=== PATIENT | female | born 1940 | race Caucasian/White ===

== ENCOUNTER 2021-08-12 12:45 | Inpatient (IN) | payer MEDICARE ==
--- NOTE | 2021-08-12 13:20 | ED ---
General Adult HPI - General Source: patient, RN notes reviewed, old records reviewed <Jeovany Pan - Last Filed: 08/12/21 15:21> <Beau Fuchs - Last Filed: 08/12/21 16:36> - General Chief complaint: Neuro Symptoms/Deficit Stated complaint: aphasia Time Seen by Provider: 08/12/21 12:45 - History of Present Illness Initial comments: This is an 81-year-old female who presents emergency Department stating that she has had expressive aphasia for at least 2 days. Patient denies any weakness or numbness. Patient denies any headache patient denies any lightheadedness. Patient denies any chest pain palpitations difficulty breathing or shortness of breath. Patient denies being on any blood thinners. Patient states her only complaint is that she's having trouble finding words. Patient states she's had no problem ambulating. (Jeovany Pan) - Related Data Home Medications Medication Instructions Recorded Confirmed Folic Acid 1 mg PO DAILY 01/22/15 01/22/15 Furosemide [Lasix] 20 mg PO DAILY 01/22/15 01/22/15 Levothyroxine Sodium [Synthroid] 50 mg PO DAILY 01/22/15 01/22/15 Loratadine [Claritin] 10 mg PO DAILY 01/22/15 01/22/15 Methotrexate Sodium/Pf 100 unit SQ DIRECTED 01/22/15 01/22/15 [Methotrexate 100 mg/4 ml Vial] Ramipril 10 mg PO DAILY 01/22/15 01/22/15 predniSONE 10 mg PO DAILY 01/22/15 01/22/15 sitaGLIPtin PHOS/metFORMIN HCL 1 tab PO BID 01/22/15 01/22/15 [Janumet 50-1,000 mg Tablet] traMADol HCL [Ultram] 100 mg PO TID PRN 01/22/15 01/22/15 Allergies Allergy/AdvReac Type Severity Reaction Status Date / Time No Known Allergies Allergy Verified 02/03/15 13:01 Review of Systems ROS Other: All systems not noted in ROS Statement are negative. <Jeovany Pan - Last Filed: 08/12/21 15:21> ROS Other: All systems not noted in ROS Statement are negative. <Beau Fuchs - Last Filed: 08/12/21 16:36> ROS Statement: Those systems with pertinent positive or pertinent negative responses have been documented in the HPI. General Exam <Jeovany Pan - Last Filed: 08/12/21 15:21> - General Exam Comments Initial Comments: GENERAL: Patient is well-developed and well-nourished. Patient is nontoxic and well-hydrated and is in no acute distress. ENT: Neck is soft and supple. No significant lymphadenopathy is noted. Oropharynx is clear. Moist mucous membranes. Neck has full range of motion without eliciting any pain. EYES: The sclera were anicteric and conjunctiva were pink and moist. Extraocular move ments were intact and pupils were equal round and reactive to light. Eyelids were unremarkable. PULMONARY: Unlabored respirations. Good breath sounds bilaterally. No audible rales rhonchi or wheezing was noted. CARDIOVASCULAR: There is a regular rate and rhythm without any murmurs gallops or rubs. ABDOMEN: Soft and nontender with normal bowel sounds. SKIN: Skin is clear with no lesions or rashes and otherwise unremarkable. NEUROLOGIC: Patient is alert and oriented x3. Cranial nerves II through XII are grossly intact. Patient has chronic weakness in the left arm secondary to her shoulders and she states that is no worse than normal. Patient's other 3 extremities have normal strength normal sensation. Patient's speech is clear when she can say the words she is thinking. Patient is having some expressive aphasia. MUSCULOSKELETAL: Normal extremities with adequate strength and full range of motion. LYMPHATICS: No significant lymphadenopathy is noted PSYCHIATRIC: Normal psychiatric evaluation. (Jeovany Pan) Course Vital Signs 08/12/21 14:20 Temperature 98.3 F Pulse Rate 81 Respiratory 20 Rate Blood Pressure 140/73 O2 Sat by Pulse 98 Oximetry Medical Decision Making - Lab Data Result diagrams: 08/12/21 13:43 08/12/21 13:43 <Jeovany Pan - Last Filed: 08/12/21 15:21> - Lab Data Result diagrams: 08/12/21 13:43 08/12/21 13:43 - Radiology Data Radiology results: report reviewed (CT brain shows atrophy. CT angios does show stenosis several areas, up to 70% proximal left ICA.), image reviewed (Chest x- ray shows low lung volumes. Cardiomegaly with some increased interstitial markings, possible CHF.) <Beau Fuchs - Last Filed: 08/12/21 16:36> - Medical Decision Making EKG shows sinus rhythm with occasional PAC at 83 bpm KS interval is 173 QRSs 85 QT interval 364 QTC is 44. Patient's EKG shows no ST segment elevation or depression. Dr. Fuchs will be taking over the care of this patient at 3 PM (Jeovany Pan) Patient reevaluated by myself, Dr. Fuchs. Patient does have interest aphasia. Patient and family updated on results and plan. Dr. Hanley has been paged for admission of this patient. (Beau Fuchs) - Lab Data Lab Results 08/12/21 08/12/21 08/12/21 Range/Units 13:43 13:43 13:43 WBC 8.6 (3.8-10.6) k/uL RBC 3.15 L (3.80-5.40) m/uL Hgb 10.9 L (11.4-16.0) gm/dL Hct 33.1 L (34.0-46.0) % MCV 104.9 H (80.0-100.0) fL MCH 34.5 (25.0-35.0) pg MCHC 32.9 (31.0-37.0) g/dL RDW 16.2 H (11.5-15.5) % Plt Count 379 (150-450) k/uL MPV 7.2 Neutrophils % 79 % Lymphocytes % 14 % Monocytes % 4 % Eosinophils % 2 % Basophils % 1 % Neutrophils # 6.7 (1.3-7.7) k/uL Lymphocytes # 1.2 (1.0-4.8) k/uL Monocytes # 0.3 (0-1.0) k/uL Eosinophils # 0.1 (0-0.7) k/uL Basophils # 0.1 (0-0.2) k/uL Hypochromasia Slight Anisocytosis Slight Macrocytosis Moderate PT 10.8 (9.0-12.0) sec INR 1.0 (<1.2) APTT 22.7 (22.0-30.0) sec Sodium 137 (137-145) mmol/L Potassium 3.4 L (3.5-5.1) mmol/L Chloride 97 L (98-107) mmol/L Carbon Dioxide 34 H (22-30) mmol/L Anion Gap 6 mmol/L BUN 12 (7-17) mg/dL Creatinine 0.51 L (0.52-1.04) mg/dL Est GFR (CKD-EPI)AfAm >90 (>60 ml/min/1.73 sqM) Est GFR (CKD-EPI)NonAf 90 (>60 ml/min/1.73 sqM) Glucose 117 H (74-99) mg/dL Calcium 9.0 (8.4-10.2) mg/dL Total Bilirubin 0.6 (0.2-1.3) mg/dL AST 40 H (14-36) U/L ALT 13 (4-34) U/L Alkaline Phosphatase 88 (38-126) U/L Troponin I (0.000-0.034) ng/mL Total Protein 7.2 (6.3-8.2) g/dL Albumin 4.1 (3.5-5.0) g/dL 08/12/21 Range/Units 13:43 WBC (3.8-10.6) k/uL RBC (3.80-5.40) m/uL Hgb (11.4-16.0) gm/dL Hct (34.0-46.0) % MCV (80.0-100.0) fL MCH (25.0-35.0) pg MCHC (31.0-37.0) g/dL RDW (11.5-15.5) % Plt Count (150-450) k/uL MPV Neutrophils % % Lymphocytes % % Monocytes % % Eosinophils % % Basophils % % Neutrophils # (1.3-7.7) k/uL Lymphocytes # (1.0-4.8) k/uL Monocytes # (0-1.0) k/uL Eosinophils # (0-0.7) k/uL Basophils # (0-0.2) k/uL Hypochromasia Anisocytosis Macrocytosis PT (9.0-12.0) sec INR (<1.2) APTT (22.0-30.0) sec Sodium (137-145) mmol/L Potassium (3.5-5.1) mmol/L Chloride (98-107) mmol/L Carbon Dioxide (22-30) mmol/L Anion Gap mmol/L BUN (7-17) mg/dL Creatinine (0.52-1.04) mg/dL Est GFR (CKD-EPI)AfAm (>60 ml/min/1.73 sqM) Est GFR (CKD-EPI)NonAf (>60 ml/min/1.73 sqM) Glucose (74-99) mg/dL Calcium (8.4-10.2) mg/dL Total Bilirubin (0.2-1.3) mg/dL AST (14-36) U/L ALT (4-34) U/L Alkaline Phosphatase (38-126) U/L Troponin I <0.012 (0.000-0.034) ng/mL Total Protein (6.3-8.2) g/dL Albumin (3.5-5.0) g/dL Disposition <Jeovany Pan - Last Filed: 08/12/21 15:21> Is patient prescribed a controlled substance at d/c from ED?: No Time of Disposition: 16:36 <Beau Fuchs - Last Filed: 08/12/21 16:36> Clinical Impression: Cerebrovascular accident (CVA) Disposition: ADMITTED IP TO THIS HOSP Referrals: Gina Hanley MD [Primary Care Provider] - 1-2 days
[2021-08-12 13:57] LABS: Anisocytosis Slight; Basophils # (A) 0.1 k/uL (0-0.2); Basophils % (A) 1 %; Eosinophils # (A) 0.1 k/uL (0-0.7); Eosinophils % (A) 2 %; HCT 33.1 % (34.0-46.0); HGB 10.9 gm/dL (11.4-16.0); Hypochromasia Slight; Lymphocytes # (A) 1.2 k/uL (1.0-4.8); Lymphocytes % (A) 14 %; MCH 34.5 pg (25.0-35.0); MCHC 32.9 g/dL (31.0-37.0); MCV 104.9 fL (80.0-100.0); Macrocytosis Moderate; Mean Platelet Volume 7.2; Monocytes # (A) 0.3 k/uL (0-1.0); Monocytes % (A) 4 %; Neutrophils # (A) 6.7 k/uL (1.3-7.7); Neutrophils % (A) 79 %; Platelet Count 379 k/uL (150-450); RBC 3.15 m/uL (3.80-5.40); RDW 16.2 % (11.5-15.5); WBC 8.6 k/uL (3.8-10.6)
[2021-08-12 14:08] LABS: Partial Thromboplastin Time 22.7 sec (22.0-30.0); Prothrombin Time 10.8 sec (9.0-12.0)
[2021-08-12 14:10] LABS: ALT 13 U/L (4-34); AST 40 U/L (14-36); African American GFR (CKD) >90 (>60 ml/min/1.73 sqM); Albumin 4.1 g/dL (3.5-5.0); Alkaline Phosphatase 88 U/L (38-126); Anion Gap 6 mmol/L; Blood Urea Nitrogen 12 mg/dL (7-17); Carbon Dioxide 34 mmol/L (22-30); Chloride 97 mmol/L (98-107); Glucose 117 mg/dL (74-99); Non-African American GFR(CKD) 90 (>60 ml/min/1.73 sqM); Potassium 3.4 mmol/L (3.5-5.1); Sodium 137 mmol/L (137-145); Total Bilirubin 0.6 mg/dL (0.2-1.3); Total Protein 7.2 g/dL (6.3-8.2)
--- NOTE | 2021-08-12 15:15 | XR ---
EXAMINATION TYPE: XR chest 2V DATE OF EXAM: 08/12/2021 COMPARISON: 10/07/2014 HISTORY: 80-year-old female confusion, altered mental status TECHNIQUE: AP and lateral views FINDINGS: Very low lung volumes limiting the assessment. Heart appears mildly enlarged. Diffuse interstitial an d vascular prominence. No sizable pleural effusion on the lateral view. There appears to be a mild lou perior endplate deformity of a midthoracic vertebral body, new from 2014 but still age indeterminate. Patchy left basilar opacity. IMPRESSION: 1. Very limited exam due to marked hypoventilatory changes. There is cardiomegaly and diffuse interst itial/vascular density, possible CHF with pulmonary vascular congestion. Patchy left basilar atelecta sis versus developing infiltrate. 2. Mild superior endplate deformity of a midthoracic vertebral body is new from 2014 but still age in determinate. Clinically correlate.
--- NOTE | 2021-08-12 15:35 | CT ---
EXAMINATION TYPE: CT brain wo con for TPA DATE OF EXAM: 08/12/2021 COMPARISON: None HISTORY: 81-year-old female neurologic deficit, acute, stroke suspected, weakness and difficulty talk ing. TECHNIQUE: Examination was done in axial plane without intravenous contrast. Coronal and sagittal r econstructions performed. CT DLP: 1102.6 mGycm Automated exposure control for dose reduction was used. FINDINGS: There is no evidence of acute intracranial hemorrhage, acute ischemic changes, mass, mass-effect, or extra-axial fluid collection. There is no effacement of cerebral sulci or basal subarachnoid cister ns. There is no hydrocephalus. There is no midline shift. Hameed-white matter distinction is preserv ed. Moderate confluent white matter hypodensities in both cerebral hemispheres. Mild central cerebral vol ume loss with secondary mild prominence to the ventricular system. Leftward nasal septal deviation. Mild mucosal thickening floor of the left maxillary sinus. Mastoid a ir cells are well pneumatized. IMPRESSION: Mild atrophy. No acute intracranial abnormality seen. Moderate confluent burden of small vessel ische elysia disease.
--- NOTE | 2021-08-12 15:55 | CT ---
EXAMINATION TYPE: CT angio head neck DATE OF EXAM: 08/12/2021 COMPARISON: CT same day HISTORY: 81-year-old female with weakness, difficulty in talking TECHNIQUE: Contiguous axial scanning of the head and neck performed with IV Contrast, patient injecte d with 65 mL of Isovue 370. Coronal/sagittal MIP reconstructions performed. 3-D reconstructions gener ated on a dedicated workstation. CT DLP: 540.4 mGycm Automated exposure control for dose reduction was used. FINDINGS: NECK: At least LAD and circumflex coronary artery calcifications are present. In addition, there is large c aliber to the main right and left pulmonary arteries measuring up to 3.1 cm suggesting underlying pul monary arterial hypertension. Interstitial changes throughout the lungs. Correlate to exclude pulmona ry vascular congestion related to CHF. Mild atherosclerotic arch calcifications. Scattered mild atherosclerotic calcifications throughout th e arch vessels. Bilateral codominant vertebral arteries which are otherwise patent throughout their c ourse. Moderate atherosclerotic calcification right carotid bifurcation which occurs at any retropharyngeal course. Changes result in mild, approximately 30% proximal ICA stenosis. Retropharyngeal course of th e proximal ICA and tortuous course of the mid to distal right ICA. Left common carotid artery is patent. More moderate to severe at the scarring changes at the left carotid bifurcation with a severe, 70% st enosis at the upper left carotid bulb. Retropharyngeal course proximal left ICA. Remainder of the lef t ICA is patent. HEAD: There are mild to moderate atherosclerotic irregularity throughout the V4 segment left vertebral teetee ry. Otherwise, vertebral and basilar arteries are patent. Persistent origin right posterior cerebral artery. Remainder of the posterior circulation is pa tent. Prominent atherosclerotic calcifications throughout the bilateral carotid siphons with segmental mild stenoses throughout, more more moderate stenosis left ICA, axial image 540 of series 405. Remainder of the anterior circulation is patent. No aneurysmal change is seen. IMPRESSION: NECK: 1. Mild, approximately 30% proximal right ICA stenosis. 2. Severe, approximately 70% proximal left ICA stenosis at the upper left carotid bulb. 3. CAD and pulmonary arterial hypertension. Given interstitial changes throughout the lungs, correlat e to exclude pulmonary vascular congestion/CHF. HEAD: 4. Moderate atherosclerotic calcification throughout the bilateral carotid siphons contributing to va riable mild intracranial ICA narrowing throughout. More focal mild to moderate stenosis supraclinoid left ICA. 5. No large vessel intracranial arterial occlusion or significant stenosis. No aneurysmal changes see n. 6. Persistent origin right [employer]OCK [employer]ER.
[2021-08-12] MEDS ORDERED: ASPIRIN 325 MG TAB PO STA (16:36)
[2021-08-12] MEDS: SODIUM CHLORIDE 0.9% 1,000 ML IV SCH (16:52)
[2021-08-12 21:06] LABS: Glucose,Whole Blood 142 mg/dL (70-110)
[2021-08-13 06:20] LABS: Glucose,Whole Blood 93 mg/dL (70-110)
[2021-08-13] MEDS: SODIUM CHLORIDE 0.9% 1,000 ML IV SCH ×3 (06:32→23:49)
[2021-08-13] MEDS: ASPIRIN 325 MG TAB PO SCH (08:58)
[2021-08-13] MEDS ORDERED: ATORVASTATIN 80 MG TAB PO STA (09:00)
[2021-08-13 09:28] LABS: Chol/HDL Ratio 2.41 Ratio; LDL Cholesterol,Calculated 88.4 mg/dL (0.0-131.0); VLDL Calculation 15.68 mg/dL (5.00-40.00)
[2021-08-13] MEDS ORDERED: TICAGRELOR 90 MG TAB PO STA (09:36)
--- NOTE | 2021-08-13 09:47 | P.CNNES ---
History of Present Illness Consult date: 08/13/21 Requesting physician: Beau Fuchs Reason for Consult: CVA History of Present Illness: This is an 81-year-old woman with medical history of hypertension, very hard of hearing who presented to the emergency department on 08/12/2021 for expressive aphasia for at least 2 days. Some of the history is accompanied by the son (who is at bedside especially since patient is hard of hearing). Patient has been having word finding difficulty and that her only complaint and had language issues possibly since 08/10/2021. She resides in an independent living facility and son felt his daughter noticed late at night patient did not sound right. The next day her facility checked her blood pressure and it seemed to be uncontrolled. Then yesterday he language was worsening. She is also having right upper extremity weakness. Patient has similar episode like this in June 2021 and was evaluated by Raffy Zavala. The son stated she had work-up but did not have MRI Brain. Her symptoms has resolved but was told possible had ?atrial flutter at [facility]. Patient is on aspirin 81 mg at home as well as Plavix 75 mg daily. Is on Crestor 5 mg daily. Patient denies of neck pain, visual disturbance, numbness or tingling. Some other workup during this hospital visit consisted of: Initial blood pressure is 140/73 CT of the head is reported as mild atrophy. No acute intracranial abnormality seen. Moderate confluent burden of small vessel ischemic disease. I personally reviewed the CT of the head and I agree with the report. CT angiography of the neck is reported as mild proximal with her percent proximal right ICA stenosis at. Severe approximately 70% proximal left ICA stenosis at the upper left carotid bulb. Coronary artery disease and pulmonary arterial hypertension. Given interstitial changes throughout the long, correlate to exclude pulmonary vascular congestion/congestive heart failure CT angiography of the head is reported as moderate atherosclerotic as effusion throughout the bilateral carotid siphons contributing to variable mild intracranial ICA narrowing throughout. More focal mild to moderate stenosis of the supraclinoid left ICA. No large vessel intracranial artery occlusion or significant stenosis. No aneurysm change. 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 EKG is reported as sinus rhythm with occasional supraventricular premature complexes. Borderline axis deviation QRS axis. In the ED it was felt the patient has mild expressive aphasia. No IV TPA since the patient is outside the window and the risk outweighed the benefit. Review of Systems Review of system: The 12 point system was reviewed and apparent positive and negative per HPI. Past Medical History Past Medical History: Unable to Obtain History of Any Multi-Drug Resistant Organisms: None Reported Past Surgical History: Unable to Obtain Past Anesthesia/Blood Transfusion Reactions: No Reported Reaction Past Psychological History: No Psychological Hx Reported, Unable to Obtain Smoking Status: Former smoker Past Alcohol Use History: None Reported Past Drug Use History: None Reported Medications and Allergies Home Medications Medication Instructions Recorded Confirmed Type Folic Acid 1 mg PO DAILY 01/22/15 08/12/21 History Levothyroxine Sodium [Synthroid] 50 mg PO DAILY 01/22/15 08/12/21 History Methotrexate Sodium/Pf 25 unit SQ TU 01/22/15 08/12/21 History [Methotrexate 100 mg/4 ml Vial] Aspirin EC [Ecotrin Low Dose] 81 mg PO DAILY 08/12/21 08/12/21 History Clopidogrel [Plavix] 75 mg PO DAILY 08/12/21 08/12/21 History Furosemide [Lasix] 40 mg PO DAILY 08/12/21 08/12/21 History Losartan [Cozaar] 50 mg PO DAILY 08/12/21 08/12/21 History Nystatin 100,000Unit/gm Cream 1 applic TOPICAL BID 08/12/21 08/12/21 History [Mycostatin Cream] Rosuvastatin Calcium [Crestor] 5 mg PO DAILY 08/12/21 08/12/21 History cycloSPORINE 0.05% OPHTH SOLN 1 drop BOTH EYES BID 08/12/21 08/12/21 History [Restasis] Allergies Allergy/AdvReac Type Severity Reaction Status Date / Time No Known Allergies Allergy Verified 02/03/15 13:01 Physical Examination - Vital Signs Vital Signs: Vital Signs Temp Pulse Pulse Resp BP BP Pulse Ox 08/13/21 04:00 63 18 122/61 97 08/13/21 02:00 74 18 08/13/21 00:00 98.4 F 74 18 126/66 98 08/12/21 20:00 98.3 F 82 18 125/69 99 08/12/21 19:00 84 22 136/72 08/12/21 18:00 84 18 138/69 08/12/21 17:00 87 18 140/83 08/12/21 16:37 98.2 F 85 20 136/80 96 07/01/22 16:00 87 20 156/81 07/01/22 14:20 98.3 F 81 20 140/73 98 Intake and Output 08/12/21 08/13/21 08/13/21 22:59 06:59 14:59 Other: Voiding Method Diaper External Catheter # Voids 1 1 Weight 95.218 kg GENERAL: The patient is lying in bed and is not in acute distress. CHEST: The heart rate is regular rate rhythm. No murmurs to auscultation. LUNG: Clear to auscultation bilaterally no wheezing noted throughout. Not labored breathing. ABDOMEN/GI: Bowel sounds present in all 4 quadrants. No tenderness to palpation throughout. NEUROLOGICAL: Higher mental function: The patient is awake, alert, oriented to self, place and time. Patient is following commands. Has Mild to moderate expressive aphasia (some word finding difficulty and at time difficulty repeating sentences). No neglect. Cranial nerves: The pupils are round, equal and reactive to light and accommodation. Visual nuñez are full to confrontation throughout. Extraocular movement is intact no nystagmus is noted. Facial sensation is normal to touch throughout. The facial strength is normal throughout. Hearing is severely decr eased bilaterally to hand rub (currently does not have her hearing aids). Tongue is midline and moved [id number] without any difficulty. No dysarthria is noted. Shoulder shrug is normal bilaterally. Motor: The strength is right upper extremity is 4+. Otherwise 5 over 5 throughout. Normal tone and bulk. Cerebellum: Normal finger to nose bilaterally. Sensation: Sensation is normal to touch throughout. Reflexes (right/left): 3+ over the left upper, 2+ over the right upper. 0 (bilateral knee replacement). Plantars could not assess because of her cooperation. Results - Laboratory Findings CBC and BMP: 08/12/21 13:43 08/12/21 13:43 Abnormal Lab Findings: Abnormal Labs 08/12/21 08/12/21 08/12/21 13:43 13:43 21:00 RBC 3.15 L Hgb 10.9 L Hct 33.1 L MCV 104.9 H RDW 16.2 H Potassium 3.4 L Chloride 97 L Carbon Dioxide 34 H Creatinine 0.51 L Glucose 117 H POC Glucose (mg/dL) 142 H AST 40 H Assessment and Plan Assessment: Expressive aphasia and right upper extremity weakness seems due to Acute ischemic stroke (symptoms at least two days prior to hospital visit). Symptomatic Left ICA stenosis at least 70% stenosis per CTA Has similar episode in June 2021 and appeared TIA Reported questionable atrial flutter in June 2021 (notified at outside facility--[facility]) Very hard of hearing Plan: I ordered MRI of the brain without urgently. Patient home medication of aspirin was increased from 81 to 325 and was given 325 the milligram once in the ED. Instead of his home Plavix since he failed all start the patient on Brilinta 90 mg 1 tablet 1 tablet twice a day with a loading dose of 180 mg once. I loaded the patient with Lipitor 80 mg once then start him on 80 mg for secondary stroke prophylaxis and that would help with stablize plaque over the left ICA. I consulted the vascular surgery team for the left ICA stenosis since it symptomatic. I also ordered carotid duplex 2-D echo, lipid panel, is ordered and is pending I also ordered hemoglobin A1c and TSH. Consulted cardiology team for ?reported atrial flutter in June 2021 (over at [facility]). Every 4 hours neuro checks Continue cardiac monitoring PT, OT and NURSE SPECIALIST are consulted We'll defer the rest of the medical management to the primary team For DVT prophylaxis I started the patient on subcu heparin 5000 units every 12 hours We'll defer the rest of the medical management to primary team. The plan is discussed with patient and her son (who is at bedside). Thank you for the consultation. Jose Lobato M.D. Neuro-hospitalist Time with Patient: Greater than 30
[2021-08-13 11:50] LABS: Glucose,Whole Blood 141 mg/dL (70-110)
--- NOTE | 2021-08-13 12:18 | P.CRDCN ---
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 She has a past medical history of hypertension, hyperlipidemia, questionable history of diabetes and history of rheumatoid arthritis. Presented to the emergency department with a 2 to three-day history of expressive aphasia and some questionable right-sided weakness which the patient denies this is related to her bed shoulder but the son has noted weakness in the left arm and patient is unable to raise the left arm. She was apparently admitted to [facility] about 6 weeks ago with the same symptoms and at that time she underwent echocardiogram with Doppler study and the son was told by someone at that time that they've possibly saw a flutter. Unfortunately the results of the testing which are [facility] are not available to us at this time. This onset over a three-week period the patient's symptoms resolved and she was back to normal. Upon presentation chest x-ray showed a very limited exam with cardiomegaly and diffuse interstitial vascular density possible CHF with pulmonary vascular congestion, patchy left basilar atelectasis versus developing infiltrate, mild superior endplate deformity of t he mid thoracic vertebral body which is new from 2015, Age indeterminate. Computed tomography scan of the brain showed mild atrophy, no acute intracranial abnormality seen, moderate fluent burden of small vessel ischemic disease. CT angiography had a neck showed mild proximal right ICA stenosis, severe approximately 70% proximal left ICA stenosis at the upper left carotid bulb, CAD and pulmonary arterial hypertension, moderate atherosclerotic calcification throughout the bilateral carotid siphons contributing to variable mild intracranial ICA narrowing throughout, more focal mild to moderate stenosis of supraclinoid left ICA, no large vessel intracranial arterial occlusion or significant stenosis. EKG showed sinus mechanism with PACs. No evidence of arrhythmia on telemetry. Neurology has been consulted and patient is scheduled for MRI today. Laboratory values showed potassium 3.4, hemoglobin 10.9, BUN 12, creatinine 0.51, troponin has been negative 1. Home medications include r osuvastatin 5 mg by mouth daily, methotrexate, losartan 50 mg by mouth daily, level thyroxine, Lasix 40 mg daily which the patient admits to taking 80 mg daily, folic acid, low-dose aspirin and clopidogrel. She's been initiated on Brilinta and atorvastatin 80mg daily. Overall she's feeling a bit better. She has regained some strength in her arm and her speech is improving. Past Medical History Past Medical History: Unable to Obtain History of Any Multi-Drug Resistant Organisms: None Reported Past Surgical History: Unable to Obtain Past Anesthesia/Blood Transfusion Reactions: No Reported Reaction Past Psychological History: No Psychological Hx Reported, Unable to Obtain Smoking Status: Former smoker Past Alcohol Use History: None Reported Past Drug Use History: None Reported Medications and Allergies Home Medications Medication Instructions Recorded Confirmed Type Folic Acid 1 mg PO DAILY 01/22/15 08/12/21 History Levothyroxine Sodium [Synthroid] 50 mg PO DAILY 01/22/15 08/12/21 History Methotrexate Sodium/Pf 25 unit SQ TU 01/22/15 08/12/21 History [Methotrexate 100 mg/4 ml Vial] Aspirin EC [Ecotrin Low Dose] 81 mg PO DAILY 08/12/21 08/12/21 History Clopidogrel [Plavix] 75 mg PO DAILY 08/12/21 08/12/21 History Furosemide [Lasix] 40 mg PO DAILY 08/12/21 08/12/21 History Losartan [Cozaar] 50 mg PO DAILY 08/12/21 08/12/21 History Nystatin 100,000Unit/gm Cream 1 applic TOPICAL BID 08/12/21 08/12/21 History [Mycostatin Cream] Rosuvastatin Calcium [Crestor] 5 mg PO DAILY 08/12/21 08/12/21 History cycloSPORINE 0.05% OPHTH SOLN 1 drop BOTH EYES BID 08/12/21 08/12/21 History [Restasis] Allergies Allergy/AdvReac Type Severity Reaction Status Date / Time No Known Allergies Allergy Verified 02/03/15 13:01 Physical Exam Vitals: Vital Signs Temp Pulse Pulse Resp BP BP Pulse Ox 08/13/21 08:56 98.1 F 81 18 145/65 94 L 08/13/21 04:00 63 18 122/61 97 08/13/21 02:00 74 18 08/13/21 00:00 98.4 F 74 18 126/66 98 08/12/21 20:00 98.3 F 82 18 125/69 99 08/12/21 19:00 84 22 136/72 08/12/21 18:00 84 18 138/69 08/12/21 17:00 87 18 140/83 08/12/21 16:37 98.2 F 85 20 136/80 96 08/12/21 16:00 87 20 156/81 08/12/21 14:20 98.3 F 81 20 140/73 98 Intake and Output 08/12/21 08/13/21 08/13/21 22:59 06:59 14:59 Output Total 550 Balance -550 Output: Urine 550 Other: Voiding Method Diaper External Catheter # Voids 1 1 Weight 95.218 kg PHYSICAL EXAMINATION: This is a 81-year-old female in no apparent distress at the time of my examination. VITAL SIGNS: Blood pressure 145/65, heart rate 81, respirations 18, temp 98.1F. Patient is 94 % on room air. HEENT: Head is atraumatic, normocephalic. Pupils are equal, round. Sclerae anicteric. Conjunctivae are clear. Mucous membranes of the mouth are moist. Neck is supple. There is no elevated jugular venous pressure. Left carotid bruit is heard. CHEST EXAMINATION: Clear to auscultation bilaterally. No wheezes rales or rhonchi. Respirations even and nonlabored. HEART EXAMINATION: Heart regular, positive S1 and S2. No S3. No S4. Systolic ejection murmur at the base. ABDOMEN: Soft, nontender. Bowel sounds are heard. No organomegaly noted. EXTREMITIES: 1+ peripheral pulses with evidence of mild peripheral edema and no calf tenderness noted. NEUROLOGIC EXAMINATION: Patient is awake, alert and oriented x3. Mild expressive aphasia, right sided weakness. Results 08/12/21 13:43 08/12/21 13:43 Cardiac Enzymes 08/12/21 08/12/21 Range/Units 13:43 13:43 AST 40 H (14-36) U/L Troponin I <0.012 (0.000-0.034) ng/mL Coagulation 08/12/21 Range/Units 13:43 PT 10.8 (9.0-12.0) sec APTT 22.7 (22.0-30.0) sec Lipids 08/12/21 Range/Units 13:43 Triglycerides 78.40 (0.00-149.00) mg/dL Cholesterol 178.00 (0.00-200.00) mg/dL HDL Cholesterol 73.90 H (40.00-60.00) mg/dL Cholesterol/HDL Ratio 2.41 Ratio CBC 08/12/21 Range/Units 13:43 WBC 8.6 (3.8-10.6) k/uL RBC 3.15 L (3.80-5.40) m/uL Hgb 10.9 L (11.4-16.0) gm/dL Hct 33.1 L (34.0-46.0) % Plt Count 379 (150-450) k/uL Comprehensive Metabolic Panel 08/12/21 Range/Units 13:43 Sodium 137 (137-145) mmol/L Potassium 3.4 L (3.5-5.1) mmol/L Chloride 97 L (98-107) mmol/L Carbon Dioxide 34 H (22-30) mmol/L BUN 12 (7-17) mg/dL Creatinine 0.51 L (0.52-1.04) mg/dL Glucose 117 H (74-99) mg/dL Calcium 9.0 (8.4-10.2) mg/dL AST 40 H (14-36) U/L ALT 13 (4-34) U/L Alkaline Phosphatase 88 (38-126) U/L Total Protein 7.2 (6.3-8.2) g/dL Albumin 4.1 (3.5-5.0) g/dL Current Medications Generic Name Dose Route Start Last Admin Trade Name Freq PRN Reason Stop Dose Admin Aspirin 325 mg 08/13/21 09:00 08/13/21 08:58 Aspirin 325 Mg Tab PO 325 mg DAILY HARJIT Administration Atorvastatin Calcium 80 mg 08/14/21 21:00 Atorvastatin 80 Mg Tab PO HS HARJIT Heparin Sodium (Porcine) 5,000 unit 08/13/21 21:00 Heparin Sodium,Porcine/Pf 5,000 Unit/0.5 Ml Syringe SQ Q12HR HARJIT Sodium Chloride 1,000 mls @ 100 mls/hr 08/12/21 16:45 08/13/21 06:32 Saline 0.9% IV Not Given .Q10H HARJIT Ticagrelor 90 mg 08/13/21 21:00 Ticagrelor 90 Mg Tab PO BID HARJIT Intake and Output 08/12/21 08/13/21 08/13/21 22:59 06:59 14:59 Output Total 550 Balance -550 Output: Urine 550 Other: Voiding Method Diaper External Catheter # Voids 1 1 Weight 95.218 kg 08/12/21 13:43 08/12/21 13:43 Assessment and Plan Assessment: #1 probable CVA #2 left ICA stenosis of at least 70% her CTA #3 history of a TIA in June 2021 #4 questionable atrial flutter while at [facility] in June, records currently not available #5 hypertension #6 hyperlipidemia #7 questionable diabetes Plan: From cardiology 's perspective we'll obtain records from [facility]. Continue to monitor for arrhythmia. Patient will likely benefit from either a loop recorder or event monitor as an outpatient. We will continue to follow the patient and provide further recommendations accordingly. ACQUISITION PROFESSIONAL note has been reviewed, I agree with a documented findings and plan of care. Patient was seen and examined.
--- NOTE | 2021-08-13 12:45 | US ---
EXAMINATION TYPE: US carotid duplex BILAT DATE OF EXAM: 08/13/2021 COMPARISON: CTA CLINICAL HISTORY: left ica stenosis. Stenosis, abnormal speech EXAM MEASUREMENTS: RIGHT: Peak Systolic Velocity (PSV) cm/sec ----- Right CCA: 121 ----- Right ICA: 180 ----- Right ECA: 156 ICA/CCA ratio: 1.5 RIGHT: End Diastole cm/sec ----- Right CCA: 12.3 ----- Right ICA: 25.2 ----- Right ECA: 0.0 LEFT: Peak Systolic Velocity (PSV) cm/sec ----- Left CCA: 102 ----- Left ICA: 198 ----- Left ECA: 148 ICA/CCA ratio: 1.9 LEFT: End Diastole cm/sec ----- Left CCA: 14.5 ----- Left ICA: 27.6 ----- Left ECA: 0.0 VERTEBRALS (direction of flow): Right Vertebral: Antegrade Left Vertebral: Antegrade Very difficult exam, pt scanned in chair, heavy breathing, deep dive of bilateral bifurcations Heterogeneous plaque bilaterally with elevated velocities bilaterally IMPRESSION: 50-69% stenosis of the bilateral carotid bifurcations by peak systolic velocity. Criteria for Assigning % of Stenosis / Diameter reduction (Estimation based on the indirect measurements of the internal carotid artery velocities (ICA PSV). 1. Normal (no stenosis)=ICA PSV < 125 cm/s: ratio < 2.0: ICA EDV<40 cm/s. 2. Less than 50% stenosis=ICA PSV < 125 cm/s: ratio < 2.0: ICA EDV<40 cm/s. 3. 50 to 69% stenosis=ICA PSV of 125 to 230 cm/s: ration 2.0 ? 4.0: ICA EDV 40-100 cm/s. 4. Greater than 70% stenosis to near occlusion= ICA PSV > 230 cm/s: ratio > 4.0: ICA EDV > 100 cm/s. 5. Near occlusion= ICA PSV velocities may be low or undetectable: variable ratio and ICA EDV. 6. Total occlusion=unable to detect flow.
--- NOTE | 2021-08-13 13:06 | P.HPIM ---
History of Present Illness H&P Date: 08/13/21 Amisha Benitez, is an 81-year-old female who presented to [facility] emergency room with a chief complaint of difficulty with her speech for the last 2 days, history was taken in the emergency room from her son who noticed that in the last 2 days patient was having difficulty finding words and expressing herself, he stated that at the facility where she lives she was noticed to have elevated blood pressure, patient was also complaining of right upper extremity weakness, she was brought to emergency room for further evaluation and treatment. She was evaluated in the emergency room vital examination on presentation revealed a temperature of 98.3 heart rate 81 respiration 20 blood pressure 140/73 pulse ox 98% on room air Laboratory data revealed a white blood count of 8.6 hemoglobin 10.9 platelet count 379 sodium 137 potassium 3.4 chloride 97 CO2 34 BUN 12 creatinine 0.51 Testing in the emergency room revealed EKG done in the emergency room revealed sinus rhythm with occasional supraventricular premature complexes and borderline left axis deviation, computed tomography scan of the brain without contrast done in the emergency room revealed mild atrophy no acute intracranial abnormality seen and moderate confluent burden of small vessel ischemic disease, chest x-ray done in the emergency room revealed possible congestive heart failure with pulmonary vascular congestion and possible thoracic vertebral end plate deformity. Patient was admitted to medical floor for further evaluation and treatment history of hypertension, history of hyperlipidemia , history of hearing difficulty, history of diabetes mellitus, history of chronic pain maintained on tramadol, history of hypothyroidism, and history of rheumatoid arthritis Past Medical History Past Medical History: Unable to Obtain History of Any Multi-Drug Resistant Organisms: None Reported Past Surgical History: Unable to Obtain Past Anesthesia/Blood Transfusion Reactions: No Reported Reaction Past Psychological History: No Psychological Hx Reported, Unable to Obtain Smoking Status: Former smoker Past Alcohol Use History: None Reported Past Drug Use History: None Reported Medications and Allergies Home Medications Medication Instructions Recorded Confirmed Type Folic Acid 1 mg PO DAILY 01/22/15 08/12/21 History Levothyroxine Sodium [Synthroid] 50 mg PO DAILY 01/22/15 08/12/21 History Methotrexate Sodium/Pf 25 unit SQ TU 01/22/15 08/12/21 History [Methotrexate 100 mg/4 ml Vial] Aspirin EC [Ecotrin Low Dose] 81 mg PO DAILY 08/12/21 08/12/21 History Clopidogrel [Plavix] 75 mg PO DAILY 08/12/21 08/12/21 History Furosemide [Lasix] 40 mg PO DAILY 08/12/21 08/12/21 History Losartan [Cozaar] 50 mg PO DAILY 08/12/21 08/12/21 History Nystatin 100,000Unit/gm Cream 1 applic TOPICAL BID 08/12/21 08/12/21 History [Mycostatin Cream] Rosuvastatin Calcium [Crestor] 5 mg PO DAILY 08/12/21 08/12/21 History cycloSPORINE 0.05% OPHTH SOLN 1 drop BOTH EYES BID 08/12/21 08/12/21 History [Restasis] Allergies Allergy/AdvReac Type Severity Reaction Status Date / Time No Known Allergies Allergy Verified 02/03/15 13:01 Physical Exam Vitals: Vital Signs Temp Pulse Pulse Resp BP BP Pulse Ox 08/13/21 08:56 98.1 F 81 18 145/65 94 L 08/13/21 04:00 63 18 122/61 97 08/13/21 02:00 74 18 08/13/21 00:00 98.4 F 74 18 126/66 98 08/12/21 20:00 98.3 F 82 18 125/69 99 08/12/21 19:00 84 22 136/72 08/12/21 18:00 84 18 138/69 08/12/21 17:00 87 18 140/83 08/12/21 16:37 98.2 F 85 20 136/80 96 08/12/21 16:00 87 20 156/81 08/12/21 14:20 98.3 F 81 20 140/73 98 Intake and Output 08/12/21 08/13/21 08/13/21 22:59 06:59 14:59 Output Total 550 Balance -550 Output: Urine 550 Other: Voiding Method Diaper Diaper External Catheter External Catheter # Voids 1 1 Weight 95.218 kg In general patient is alert and oriented x 3 in no distress HEENT head normocephalic and atraumatic Neck is supple no JVD no goiter no lymphadenopathy no carotid bruit Chest examination is clear to auscultation no crackles no wheezing Cardiac exam reveals regular heart sounds S1 and S2 no gallops no murmurs Abdomen is soft nontender no organomegaly with normal bowel sounds Extremity exam reveals no edema no cyanosis or clubbing Neurological examination reveals mild difficulty with her speech, improved since yesterday per her son at bedside, and minimal right upper extremity weakness as compared to the left otherwise no focal gross deficits Results CBC & Chem 7: 08/12/21 13:43 08/12/21 13:43 Labs: Abnormal Lab Results - Last 24 Hours (Table) 08/12/21 08/12/21 08/12/21 Range/Units 13:43 13:43 13:43 RBC 3.15 L (3.80-5.40) m/uL Hgb 10.9 L (11.4-16.0) gm/dL Hct 33.1 L (34.0-46.0) % MCV 104.9 H (80.0-100.0) fL RDW 16.2 H (11.5-15.5) % Potassium 3.4 L (3.5-5.1) mmol/L Chloride 97 L (98-107) mmol/L Carbon Dioxide 34 H (22-30) mmol/L Creatinine 0.51 L (0.52-1.04) mg/dL Glucose 117 H (74-99) mg/dL POC Glucose (mg/dL) (70-110) mg/dL AST 40 H (14-36) U/L HDL Cholesterol 73.90 H (40.00-60.00) mg/dL 08/12/21 08/13/21 Range/Units 21:00 11:46 RBC (3.80-5.40) m/uL Hgb (11.4-16.0) gm/dL Hct (34.0-46.0) % MCV (80.0-100.0) fL RDW (11.5-15.5) % Potassium (3.5-5.1) mmol/L Chloride (98-107) mmol/L Carbon Dioxide (22-30) mmol/L Creatinine (0.52-1.04) mg/dL Glucose (74-99) mg/dL POC Glucose (mg/dL) 142 H 141 H (70-110) mg/dL AST (14-36) U/L HDL Cholesterol (40.00-60.00) mg/dL Thrombosis Risk Factor Assmnt - Choose All That Apply Any of the Below Risk Factors Present?: Yes Each Factor Represents 1 point: Obesity (BMI >25), Swollen legs (current), Varicose veins Other Risk Factors: Yes Each Risk Factor Represents 2 Points: Patient confined to bed Each Risk Factor Represents 3 Points: Age 75 years or older Thrombosis Risk Factor Assessment Total Risk Factor Score: 8 Thrombosis Risk Factor Assessment Level: High Risk Assessment and Plan Plan: Possible Acute to subacute ischemic stroke, with expressive aphasia and right upper extremity weakness Evidence of left internal carotid artery stenosis on CT angiogram of the neck Underlying history of hypertension Underlying history of hyperlipidemia Underlying history of hypothyroidism Underlying history of [id number] diabetes mellitus Underlying history of rheumatoid arthritis Underlying history of chronic pain At this time patient is admitted to telemetry floor Neurology consultation and cardiology consultation requested Echocardiogram ordered She is maintained on aspirin and She was started on Lipitor 80 mg daily For DVT prophylaxis patient is on subcu heparin For GI prophylaxis Will add Protonix Physical therapy occupational therapy and speech therapy consult requested Will follow closely
--- NOTE | 2021-08-13 13:49 | CA ---
Transthoracic Echo Report Name: Amisha Benitez Age: 81 Gender: F : 1940 Exam Date: 08/13/2021 07:55 Exam Location: [facility] Ht (in): 58 Wt (lb): 209 Ordering Physician: Beau Fuchs DO Attending/Referring Phys: Preparation Room Manager Sandy Childress RDCS Procedure CPT: Indications: Thrombus Cardiac Hx: Technical Quality: Fair Contrast 1: Agitated Saline Total Dose (mL): 10 Contrast 2: Total Dose (mL): MEASUREMENTS (Male / Female) Normal Values 2D ECHO LV Diastolic Diameter PLAX 4.1 cm 4.2 - 5.9 / 3.9 - 5.3 cm LV Systolic Diameter PLAX 2.6 cm IVS Diastolic Thickness 1.3 cm 0.6 - 1.0 / 0.6 - 0.9 cm LVPW Diastolic Thickness 1.3 cm 0.6 - 1.0 / 0.6 - 0.9 cm LV Relative Wall Thickness 0.6 LA Volume 106.5 cm??? 18 - 58 / 22 - 52 cm??? M-MODE Aortic Root Diameter MM 3.5 cm LA Systolic Diameter MM 4.2 cm LA Ao Ratio MM 1.2 AV Cusp Separation MM 2.1 cm DOPPLER AV Peak Velocity 238.1 cm/s AV Peak Gradient 22.7 mmHg AV Mean Velocity 179.6 cm/s AV Mean Gradient 13.8 mmHg AV Velocity Time Integral 53.3 cm LVOT Peak Velocity 133.9 cm/s LVOT Peak Gradient 7.2 mmHg MV Area PHT 4.2 cm??? Mitral E Point Velocity 139.0 cm/s Mitral A Point Velocity 126.4 cm/s Mitral E to A Ratio 1.1 MV Deceleration Time 182.3 ms MV E' Velocity 5.5 cm/s Mitral E to MV E' Ratio 25.5 TR Peak Velocity 301.3 cm/s TR Peak Gradient 36.3 mmHg FINDINGS Left Ventricle Mildly increased left ventricular wall thickness. Normal left ventricular systolic function with no obvious regional wall motion abnormalities. Left ventricular ejection fraction is estimated at 55-60%. Right Ventricle Normal right ventricular size and function. Mild pulmonary hypertension. Right Atrium Normal right atrial size. Negative agitated saline bubble study for right to left shunt. Left Atrium Severely increased left atrial volume. Interatrial septal aneurysm. Mitral Valve [id number] mitral regurgitation. Mild mitral annular calcification. Mitral valve thickened. Aortic Valve Mild aortic stenosis with a peak gradient of 23 mmHg and a mean gradient of 14 mmHg. Diffuse thickening of the aortic valve cusps with reduced excursion. Tricuspid Valve No tricuspid stenosis, regurgitation or prolapse. Structurally normal tricuspid valve. Mild tricuspid regurgitation Pulmonic Valve Trace pulmonic regurgitation. Pericardium No pericardial effusion. Aorta Normal size aortic root and proximal ascending aorta. CONCLUSIONS 1. Normal left ventricle size and systolic function 2. Mild aortic stenosis 3. Mild to moderate mitral regurgitation 4. Mild tricuspid regurgitation 5. No pericardial effusion Previewed by: Dr. Eleuterio Luke MD (Electronically Signed) Final Date: 13 August 2021 13:47
--- NOTE | 2021-08-13 14:50 | MR ---
EXAMINATION TYPE: MR brain wo con DATE OF EXAM: 08/13/2021 12:52 PM COMPARISON: CT brain 02/18/2021. CLINICAL INDICATION:Female, 81 years old with history of stroke. Expressive aphasia; TECHNIQUE: Multi planar, multi sequence imaging was performed through the brain. No gadolinium was gi benigno. FINDINGS: Scattered areas of restricted diffusion within the left MCA territory involving the left fr ontal and parietal lobes. The cardoza-white junctions, ventricular system, and cisterns appear unremarka ble. Scattered foci and confluent areas of high T2 signal intensity are seen within the periventricu lar white matter. Midline structures show no abnormality. The bone marrow signal is within normal limits. The paranasal sinuses demonstrate scattered mucosal t hickening. Bilateral aphakia. IMPRESSION: 1. Scattered acute/subacute microinfarcts involving the left MCA territory including the left frontal and parietal lobes. 2. Nonspecific white matter changes, likely secondary to small vessel ischemic disease.
[2021-08-13 16:39] LABS: Glucose,Whole Blood 178 mg/dL (70-110)
[2021-08-13] MEDS: HEPARIN SODIUM,PORCINE/PF 5,000 UNIT/0.5 ML SYRINGE SQ SCH (20:10)
[2021-08-13] MEDS: TICAGRELOR 90 MG TAB PO SCH (20:10)
[2021-08-13] MEDS: NYSTATIN 100,000UNIT/GM CREAM 30 GM TUBE TOPICAL SCH (20:10)
[2021-08-13] MEDS: cycloSPORINE 0.05% OPHTH 0.4 ML DROPERETTE BOTH EYES SCH (20:10)
[2021-08-13 20:28] LABS: Glucose,Whole Blood 157 mg/dL (70-110)
[2021-08-14 06:21] LABS: Glucose,Whole Blood 175 mg/dL (70-110)
[2021-08-14] MEDS: LEVOTHYROXINE 50 MCG TAB PO SCH (06:40)
[2021-08-14] MEDS: PANTOPRAZOLE 40 MG TABLET PO SCH (06:40)
[2021-08-14 08:15] LABS: ALT 10 U/L (4-34); AST 27 U/L (14-36); African American GFR (CKD) >90 (>60 ml/min/1.73 sqM); Albumin 3.5 g/dL (3.5-5.0); Alkaline Phosphatase 79 U/L (38-126); Anion Gap 6 mmol/L; Anisocytosis Slight; Basophils % (A) 0 %; Blood Urea Nitrogen 4 mg/dL (7-17); Calcium 8.2 mg/dL (8.4-10.2); Carbon Dioxide 28 mmol/L (22-30); Chloride 96 mmol/L (98-107); Eosinophils % (A) 0 %; Glucose 164 mg/dL (74-99); HCT 34.4 % (34.0-46.0); HGB 11.3 gm/dL (11.4-16.0); Lymphocytes # (A) 0.8 k/uL (1.0-4.8); Lymphocytes % (A) 8 %; MCH 34.1 pg (25.0-35.0); MCHC 32.7 g/dL (31.0-37.0); MCV 104.2 fL (80.0-100.0); Macrocytosis Moderate; Mean Platelet Volume 7.2; Monocytes # (A) 0.5 k/uL (0-1.0); Monocytes % (A) 5 %; Neutrophils # (A) 8.5 k/uL (1.3-7.7); Neutrophils % (A) 86 %; Non-African American GFR(CKD) >90 (>60 ml/min/1.73 sqM); Platelet Count 432 k/uL (150-450); Potassium 3.2 mmol/L (3.5-5.1); RBC 3.31 m/uL (3.80-5.40); RDW 16.5 % (11.5-15.5); Sodium 130 mmol/L (137-145); Total Bilirubin 0.9 mg/dL (0.2-1.3); Total Protein 6.5 g/dL (6.3-8.2); WBC 9.9 k/uL (3.8-10.6)
[2021-08-14] MEDS ORDERED: LOSARTAN 50 MG TAB PO SCH (09:00)
[2021-08-14] MEDS: TICAGRELOR 90 MG TAB PO SCH ×2 (09:50→20:19)
[2021-08-14] MEDS: ASPIRIN 325 MG TAB PO SCH (09:51)
[2021-08-14] MEDS: HEPARIN SODIUM,PORCINE/PF 5,000 UNIT/0.5 ML SYRINGE SQ SCH ×2 (09:51→20:18)
[2021-08-14] MEDS: FOLIC ACID 1 MG TAB PO SCH (09:51)
[2021-08-14] MEDS: FUROSEMIDE 40 MG TAB PO SCH (09:51)
[2021-08-14] MEDS: SODIUM CHLORIDE 0.9% 1,000 ML IV SCH ×2 (09:51→19:36)
[2021-08-14] MEDS: NYSTATIN 100,000UNIT/GM CREAM 30 GM TUBE TOPICAL SCH ×2 (09:54→20:31)
[2021-08-14] MEDS: cycloSPORINE 0.05% OPHTH 0.4 ML DROPERETTE BOTH EYES SCH ×2 (10:21→20:20)
[2021-08-14 11:49] LABS: Glucose,Whole Blood 165 mg/dL (70-110)
--- NOTE | 2021-08-14 12:23 | P.PN ---
Subjective Progress Note Date: 08/14/21 The patient is seen at bedside and feels about the same. Denies of any new neurological issues. Objective - Vital Signs Vital signs: Vital Signs Temp 99.1 F 08/14/21 11:26 Pulse 84 08/14/21 11:26 Resp 16 08/14/21 11:26 BP 162/82 08/14/21 11:26 Pulse Ox 94 L 08/14/21 11:26 FiO2 Intake & Output 08/13/21 08/14/21 08/14/21 18:59 06:59 18:59 Intake Total 818 Output Total 550 1750 Balance 268 -1750 Intake: IV 700 Sodium Chloride 0.9% 1, 700 000 ml @ 100 mls/hr IV . Q10H [facility] Rx#:[id number] Oral 118 Output: Urine 550 1750 Other: Voiding Method Diaper Diaper Diaper External Catheter External Catheter External Catheter # Bowel Movements 1 - Exam GENERAL: The patient is lying in bed and is not in acute distress. NEUROLOGICAL: Higher mental function: The patient is awake, alert, oriented to self, place and time. Patient is following commands. Has Mild to moderate expressive aphasia (some word finding difficulty and at time difficulty repeating sentences). No neglect. Cranial nerves: The pupils are round, equal and reactive to light and accommodation. Visual nuñez are full to confrontation throughout. Extraocular movement is intact no nystagmus is noted. Facial sensation is normal to touch throughout. The facial strength is normal throughout. Hearing is severely decreased bilaterally to hand rub (currently does not have her hearing aids). Tongue is midline and moved [id number] without any difficulty. No dysarthria is noted. Shoulder shrug is normal bilaterally. Motor: The strength is right upper extremity is 4+. Otherwise 5 over 5 throughout. Normal tone and bulk. Cerebellum: Normal finger to nose bilaterally. Sensation: Sensation is normal to touch throughout. Reflexes (right/left): 3+ over the left upper, 2+ over the right upper. 0 (bilateral knee replacement). Plantars could not assess because of her cooperation. Some other workup during this hospital visit consisted of: Lipid panel is triglyceride of 78, cholesterol 278, LDLs 88 and HDL 73. Hemoglobin A1c 6.4. CT of the head is reported as mild atrophy. No acute intracranial abnormality seen. Moderate confluent burden of small vessel ischemic disease. I personally reviewed the CT of the head and I agree with the report. CT angiography of the neck is reported as mild proximal with her percent proximal right ICA stenosis at. Severe approximately 70% proximal left ICA stenosis at the upper left carotid bulb. Coronary artery disease and pulmonary arterial hypertension. Given interstitial changes throughout the long, correlate to exclude pulmonary vascular congestion/congestive heart failure CT angiography of the head is reported as moderate atherosclerotic as effusion throughout the bilateral carotid siphons contributing to variable mild in tracranial ICA narrowing throughout. More focal mild to moderate stenosis of the supraclinoid left ICA. No large vessel intracranial artery occlusion or significant stenosis. No aneurysm change. 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 MR the brain is reported as scattered acute/subacute microinfarcts involving the left MCA territory including the left frontal and parietal lobe. I personally reviewed the MRI and I feel it's mostly left frontal some parietal and that the border of occipital temporal region. Carotid duplex is reported as 50-69% stenosis of bilateral carotid bifurcation by peak systolic velocity. 2-D echo was reported as normal left ventricle size and systolic function. Mild to moderate mitral regurgitation. Mild aortic stenosis. Left atrium is severely increased left atrial volume intra-atrial septum aneurysm - Labs CBC & Chem 7: 08/14/21 07:32 08/14/21 07:32 Labs: Abnormal Lab Results - Last 24 Hours (Table) 08/12/21 08/13/21 08/13/21 Range/Units 13:43 16:37 20:27 RBC (3.80-5.40) m/uL Hgb (11.4-16.0) gm/dL MCV (80.0-100.0) fL RDW (11.5-15.5) % Neutrophils # (1.3-7.7) k/uL Lymphocytes # (1.0-4.8) k/uL Sodium (137-145) mmol/L Potassium (3.5-5.1) mmol/L Chloride (98-107) mmol/L BUN (7-17) mg/dL Creatinine (0.52-1.04) mg/dL Glucose (74-99) mg/dL POC Glucose (mg/dL) 178 H 157 H (70-110) mg/dL Hemoglobin A1c 6.4 H (0.0-6.0) % Calcium (8.4-10.2) mg/dL 08/14/21 08/14/21 08/14/21 Range/Units 06:20 07:32 07:32 RBC 3.31 L (3.80-5.40) m/uL Hgb 11.3 L (11.4-16.0) gm/dL MCV 104.2 H (80.0-100.0) fL RDW 16.5 H (11.5-15.5) % Neutrophils # 8.5 H (1.3-7.7) k/uL Lymphocytes # 0.8 L (1.0-4.8) k/uL Sodium 130 L (137-145) mmol/L Potassium 3.2 L (3.5-5.1) mmol/L Chloride 96 L (98-107) mmol/L BUN 4 L (7-17) mg/dL Creatinine 0.40 L (0.52-1.04) mg/dL Glucose 164 H (74-99) mg/dL POC Glucose (mg/dL) 175 H (70-110) mg/dL Hemoglobin A1c (0.0-6.0) % Calcium 8.2 L (8.4-10.2) mg/dL 08/14/21 Range/Units 11:44 RBC (3.80-5.40) m/uL Hgb (11.4-16.0) gm/dL MCV (80.0-100.0) fL RDW (11.5-15.5) % Neutrophils # (1.3-7.7) k/uL Lymphocytes # (1.0-4.8) k/uL Sodium (137-145) mmol/L Potassium (3.5-5.1) mmol/L Chloride (98-107) mmol/L BUN (7-17) mg/dL Creatinine (0.52-1.04) mg/dL Glucose (74-99) mg/dL POC Glucose (mg/dL) 165 H (70-110) mg/dL Hemoglobin A1c (0.0-6.0) % Calcium (8.4-10.2) mg/dL Assessment and Plan Assessment: Acute to subacute ischemic stroke (symptoms of Expressive aphasia and right upper extremity weakness. MRI Brain: I felt stroke over left fronto/parietal and temporal/occipital region). I feel stroke likely due to symptomatic left ICA. Symptomatic Left ICA stenosis at least 70% stenosis per CTA Has similar episode in June 2021 and appeared TIA Reported questionable atrial flutter in June 2021 (notified at outside facility--[facility]) Very hard of hearing Plan: * Continue ASA 325mg daily (was on 81mg) and stopped Plavix since he failed all start the patient on Brilinta 90 mg 1 tablet 1 tablet twice a day with a loading dose of 180 mg once. Continue Lipitor 80 mg qhs for secondary stroke prophylaxis and that would help with stablize plaque over the left ICA. * I consulted the vascular surgery team for the left ICA stenosis since it symptomatic. * Consulted cardiology team for ?reported atrial flutter in June 2021 (over at [facility]). 2-D echo was reported as normal left ventricle size and systolic function. Mild to moderate mitral regurgitation. Mild aortic stenosis. Left atrium is severely increased left atrial volume intra-atrial septum aneurysm * Every 4 hours neuro checks * Continue cardiac monitoring * PT, OT and OPERATING ROOM COORDINATOR are consulted * We'll defer the rest of the medical management to the primary team * For DVT prophylaxis Continue subcu heparin 5000 units every 12 hours * We'll defer the rest of the medical management to primary team. The plan is discussed with patient. Jose Lobato M.D. Neuro-hospitalist Time with Patient: Less than 30
--- NOTE | 2021-08-14 12:38 | P.GSCN ---
History of Present Illness Consult date: 08/14/21 History of present illness: Patient is an 81-year-old female who presented to the ER after a few days of expressive aphasia and some right sided weakness. She lives in an independent living facility and with her worsening language they brought her here to the hospital. Reportedly she had a similar episode to this back in June 2021 where she was evaluated at [facility]. At that time her symptoms had resolved. At home she was on aspirin as well as Plavix and 5 mg Crestor daily. She feels moderately improved at this point however still has some weakness in her right upper extremity. Review of Systems Difficulty in hearing, otherwise 14 point review of systems performed, pertinent positives and as per the HPI Past Medical History Past Medical History: Unable to Obtain History of Any Multi-Drug Resistant Organisms: None Reported Past Surgical History: Unable to Obtain Past Anesthesia/Blood Transfusion Reactions: No Reported Reaction Past Psychological History: No Psychological Hx Reported, Unable to Obtain Smoking Status: Former smoker Past Alcohol Use History: None Reported Past Drug Use History: None Reported Medications and Allergies Home Medications Medication Instructions Recorded Confirmed Type Folic Acid 1 mg PO DAILY 01/22/15 08/12/21 History Levothyroxine Sodium [Synthroid] 50 mg PO DAILY 01/22/15 08/12/21 History Methotrexate Sodium/Pf 25 unit SQ TU 01/22/15 08/12/21 History [Methotrexate 100 mg/4 ml Vial] Aspirin EC [Ecotrin Low Dose] 81 mg PO DAILY 08/12/21 08/12/21 History Clopidogrel [Plavix] 75 mg PO DAILY 08/12/21 08/12/21 History Furosemide [Lasix] 40 mg PO DAILY 08/12/21 08/12/21 History Losartan [Cozaar] 50 mg PO DAILY 08/12/21 08/12/21 History Nystatin 100,000Unit/gm Cream 1 applic TOPICAL BID 08/12/21 08/12/21 History [Mycostatin Cream] Rosuvastatin Calcium [Crestor] 5 mg PO DAILY 08/12/21 08/12/21 History cycloSPORINE 0.05% OPHTH SOLN 1 drop BOTH EYES BID 08/12/21 08/12/21 History [Restasis] Allergies Allergy/AdvReac Type Severity Reaction Status Date / Time No Known Allergies Allergy Verified 02/03/15 13:01 Surgical - Exam Vital Signs Temp Pulse Resp BP Pulse Ox 98.3 F 81 20 140/73 98 08/12/21 14:20 08/12/21 14:20 08/12/21 14:20 08/12/21 14:20 08/12/21 14:20 Gen. is a pleasant cooperative petite female in no acute distress. HEENT is normocephalic, atraumatic, except emotion intact. Heart appearing. Heart appears regular at this time. Lungs diminished. Abdomen is soft obese nontender nondistended. Extremities show no clubbing, cyanosis or edema. Weakness of the right upper extremity. Results Computed tomography scan and ultrasound are reviewed. On the right to be systolic velocity is 180 with a ratio 1.5. On the left the peak systolic velocities were 198 with a ratio 1.9. The computed tomography scan is reviewed showing left 70% stenosis, right 30% stenosis. Vessels are significantly tortuous with retroesophageal course. MRI shows scattered left MCA deficits - Labs 08/14/21 07:32 08/14/21 07:32 Abnormal Lab Results - Last 24 Hours (Table) 08/12/21 08/13/21 08/13/21 Range/Units 13:43 16:37 20:27 RBC (3.80-5.40) m/uL Hgb (11.4-16.0) gm/dL MCV (80.0-100.0) fL RDW (11.5-15.5) % Neutrophils # (1.3-7.7) k/uL Lymphocytes # (1.0-4.8) k/uL Sodium (137-145) mmol/L Potassium (3.5-5.1) mmol/L Chloride (98-107) mmol/L BUN (7-17) mg/dL Creatinine (0.52-1.04) mg/dL Glucose (74-99) mg/dL POC Glucose (mg/dL) 178 H 157 H (70-110) mg/dL Hemoglobin A1c 6.4 H (0.0-6.0) % Calcium (8.4-10.2) mg/dL 08/14/21 08/14/21 08/14/21 Range/Units 06:20 07:32 07:32 RBC 3.31 L (3.80-5.40) m/uL Hgb 11.3 L (11.4-16.0) gm/dL MCV 104.2 H (80.0-100.0) fL RDW 16.5 H (11.5-15.5) % Neutrophils # 8.5 H (1.3-7.7) k/uL Lymphocytes # 0.8 L (1.0-4.8) k/uL Sodium 130 L (137-145) mmol/L Potassium 3.2 L (3.5-5.1) mmol/L Chloride 96 L (98-107) mmol/L BUN 4 L (7-17) mg/dL Creatinine 0.40 L (0.52-1.04) mg/dL Glucose 164 H (74-99) mg/dL POC Glucose (mg/dL) 175 H (70-110) mg/dL Hemoglobin A1c (0.0-6.0) % Calcium 8.2 L (8.4-10.2) mg/dL 08/14/21 Range/Units 11:44 RBC (3.80-5.40) m/uL Hgb (11.4-16.0) gm/dL MCV (80.0-100.0) fL RDW (11.5-15.5) % Neutrophils # (1.3-7.7) k/uL Lymphocytes # (1.0-4.8) k/uL Sodium (137-145) mmol/L Potassium (3.5-5.1) mmol/L Chloride (98-107) mmol/L BUN (7-17) mg/dL Creatinine (0.52-1.04) mg/dL Glucose (74-99) mg/dL POC Glucose (mg/dL) 165 H (70-110) mg/dL Hemoglobin A1c (0.0-6.0) % Calcium (8.4-10.2) mg/dL Diabetes panel 08/12/21 08/14/21 Range/Units 13:43 07:32 Sodium 130 L (137-145) mmol/L Potassium 3.2 L (3.5-5.1) mmol/L Chloride 96 L (98-107) mmol/L Carbon Dioxide 28 (22-30) mmol/L BUN 4 L (7-17) mg/dL Creatinine 0.40 L (0.52-1.04) mg/dL Glucose 164 H (74-99) mg/dL Hemoglobin A1c 6.4 H (0.0-6.0) % Calcium 8.2 L (8.4-10.2) mg/dL AST 27 (14-36) U/L ALT 10 (4-34) U/L Alkaline Phosphatase 79 (38-126) U/L Total Protein 6.5 (6.3-8.2) g/dL Albumin 3.5 (3.5-5.0) g/dL Calcium panel 08/14/21 Range/Units 07:32 Calcium 8.2 L (8.4-10.2) mg/dL Albumin 3.5 (3.5-5.0) g/dL Pituitary panel 08/14/21 Range/Units 07:32 Sodium 130 L (137-145) mmol/L Potassium 3.2 L (3.5-5.1) mmol/L Chloride 96 L (98-107) mmol/L Carbon Dioxide 28 (22-30) mmol/L BUN 4 L (7-17) mg/dL Creatinine 0.40 L (0.52-1.04) mg/dL Glucose 164 H (74-99) mg/dL Calcium 8.2 L (8.4-10.2) mg/dL Adrenal panel 08/14/21 Range/Units 07:32 Sodium 130 L (137-145) mmol/L Potassium 3.2 L (3.5-5.1) mmol/L Chloride 96 L (98-107) mmol/L Carbon Dioxide 28 (22-30) mmol/L BUN 4 L (7-17) mg/dL Creatinine 0.40 L (0.52-1.04) mg/dL Glucose 164 H (74-99) mg/dL Calcium 8.2 L (8.4-10.2) mg/dL Total Bilirubin 0.9 (0.2-1.3) mg/dL AST 27 (14-36) U/L ALT 10 (4-34) U/L Alkaline Phosphatase 79 (38-126) U/L Total Protein 6.5 (6.3-8.2) g/dL Albumin 3.5 (3.5-5.0) g/dL Assessment and Plan Assessment: Symptomatic left ICA stenosis Right ICA stenosis, asymptomatic Plan: This in the patient does have some traumatic left internal carotid artery stenosis. Discussed recommendations for surgical intervention. Most likely she would be a candidate for open surgical intervention if appropriate medical and cardiac clearances are obtained. She has significant tortuosity and anatomic variations that would likely not be amenable to trans-carotid artery revascularization. We will however have it evaluated by the representatives to ensure. She is on aspirin brilenta which she will continue. We will discuss timing and plan for scheduling within the next few weeks.
[2021-08-14] MEDS ORDERED: Potassium Replacement Protocol 1 EACH MISC MISCELLANE PRN ×3 (13:01→18:52)
--- NOTE | 2021-08-14 13:36 | P.PN ---
Subjective Progress Note Date: 08/14/21 Aimsha Benitez, is an 81-year-old female who presented to [facility] emergency room with a chief complaint of difficulty with her speech for the last 2 days, history was taken in the emergency room from her son who noticed that in the last 2 days patient was having difficulty finding words and expressing herself, he stated that at the facility where she lives she was noticed to have elevated blood pressure, patient was also complaining of right upper extremity weakness, she was brought to emergency room for further evaluation and treatment. She was evaluated in the emergency room vital examination on presentation revealed a temperature of 98.3 heart rate 81 respiration 20 blood pressure 140/73 pulse ox 98% on room air Laboratory data revealed a white blood count of 8.6 hemoglobin 10.9 platelet count 379 sodium 137 potassium 3.4 chloride 97 CO2 34 BUN 12 creatinine 0.51 Testing in the emergency room revealed EKG done in the emergency room revealed sinus rhythm with occasional supraventricular premature complexes and borderline left axis deviation, computed tomography scan of the brain without contrast done in the emergency room revealed mild atrophy no acute intracranial abnormality seen and moderate confluent burden of small vessel ischemic disease, chest x-ray done in the emergency room revealed possible congestive heart failure with pulmonary vascular congestion and possible thoracic vertebral end plate deformity. Patient was admitted to medical floor for further evaluation and treatment history of hypertension, history of hyperlipidemia , history of hearing difficulty, history of diabetes mellitus, history of chronic pain maintained on tramadol, history of hypothyroidism, and history of rheumatoid arthritis On 08/14/2021 patient was seen and examined on the telemetry floor she is alert and oriented 3 in no apparent distress she is still having difficulty with her speech she reports improvement in her right upper extremity weakness otherwise she denies any complaints there is no fever or chills no headache or dizziness no chest pain no shortness of breath no cough no nausea or vomiting no abdominal pain no diarrhea no blood in the stools no burning with urination no frequency or urgency and no hematuria, physical therapy and occupational therapy and speech therapy consult, vascular surgery consult regarding possible carotid endarterectomy Objective - Vital Signs Vital signs: Vital Signs Temp 99.1 F 08/14/21 11:26 Pulse 84 08/14/21 11:26 Resp 16 08/14/21 11:26 BP 162/82 08/14/21 11:26 Pulse Ox 94 L 08/14/21 11:26 FiO2 Intake & Output 08/13/21 08/14/21 08/14/21 18:59 06:59 18:59 Intake Total 818 118 Output Total 550 1750 700 Balance 879 -2402 -381 Intake: IV 700 Sodium Chloride 0.9% 1, 700 000 ml @ 100 mls/hr IV . Q10H [facility] Rx#:[id number] Oral 118 118 Output: Urine 550 1750 700 Other: Voiding Method Diaper Diaper Diaper External Catheter External Catheter External Catheter # Bowel Movements 1 - Exam In general patient is alert and oriented x 3 in no distress HEENT head normocephalic and atraumatic Neck is supple no JVD no goiter no lymphadenopathy no carotid bruit Chest examination is clear to auscultation no crackles no wheezing Cardiac exam reveals regular heart sounds S1 and S2 no gallops no murmurs Abdomen is soft nontender no organomegaly with normal bowel sounds Extremity exam reveals no edema no cyanosis or clubbing Neurological examination reveals mild difficulty with her speech, improved since yesterday per her son at bedside, and minimal right upper extremity weakness as compared to the left otherwise no focal gross deficits - Labs CBC & Chem 7: 08/14/21 07:32 08/14/21 07:32 Labs: Abnormal Lab Results - Last 24 Hours (Table) 08/12/21 08/13/21 08/13/21 Range/Units 13:43 16:37 20:27 RBC (3.80-5.40) m/uL Hgb (11.4-16.0) gm/dL MCV (80.0-100.0) fL RDW (11.5-15.5) % Neutrophils # (1.3-7.7) k/uL Lymphocytes # (1.0-4.8) k/uL Sodium (137-145) mmol/L Potassium (3.5-5.1) mmol/L Chloride (98-107) mmol/L BUN (7-17) mg/dL Creatinine (0.52-1.04) mg/dL Glucose (74-99) mg/dL POC Glucose (mg/dL) 178 H 157 H (70-110) mg/dL Hemoglobin A1c 6.4 H (0.0-6.0) % Calcium (8.4-10.2) mg/dL 08/14/21 08/14/21 08/14/21 Range/Units 06:20 07:32 07:32 RBC 3.31 L (3.80-5.40) m/uL Hgb 11.3 L (11.4-16.0) gm/dL MCV 104.2 H (80.0-100.0) fL RDW 16.5 H (11.5-15.5) % Neutrophils # 8.5 H (1.3-7.7) k/uL Lymphocytes # 0.8 L (1.0-4.8) k/uL Sodium 130 L (137-145) mmol/L Potassium 3.2 L (3.5-5.1) mmol/L Chloride 96 L (98-107) mmol/L BUN 4 L (7-17) mg/dL Creatinine 0.40 L (0.52-1.04) mg/dL Glucose 164 H (74-99) mg/dL POC Glucose (mg/dL) 175 H (70-110) mg/dL Hemoglobin A1c (0.0-6.0) % Calcium 8.2 L (8.4-10.2) mg/dL 08/14/21 Range/Units 11:44 RBC (3.80-5.40) m/uL Hgb (11.4-16.0) gm/dL MCV (80.0-100.0) fL RDW (11.5-15.5) % Neutrophils # (1.3-7.7) k/uL Lymphocytes # (1.0-4.8) k/uL Sodium (137-145) mmol/L Potassium (3.5-5.1) mmol/L Chloride (98-107) mmol/L BUN (7-17) mg/dL Creatinine (0.52-1.04) mg/dL Glucose (74-99) mg/dL POC Glucose (mg/dL) 165 H (70-110) mg/dL Hemoglobin A1c (0.0-6.0) % Calcium (8.4-10.2) mg/dL Assessment and Plan Plan: Possible Acute to subacute ischemic stroke, with expressive aphasia and right upper extremity weakness Evidence of left internal carotid artery stenosis on CT angiogram of the neck Underlying history of hypertension Underlying history of hyperlipidemia Underlying history of hypothyroidism Underlying history of [id number] diabetes mellitus Underlying history of rheumatoid arthritis Underlying history of chronic pain At this time patient is admitted to telemetry floor Neurology consultation and cardiology consultation requested Echocardiogram ordered She is maintained on aspirin and She was started on Lipitor 80 mg daily For DVT prophylaxis patient is on subcu heparin For GI prophylaxis Will add Protonix Physical therapy occupational therapy and speech therapy consult requested Will follow closely
--- NOTE | 2021-08-14 14:24 | P.PN ---
Subjective Progress Note Date: 08/14/21 This is a pleasant 81-year-old female patient who does not follow regularly with the green chain off bearer. She has a past medical history of hypertension, hyperlipidemia, questionable history of diabetes and history of rheumatoid arthritis. Presented to the emergency department with a 2 to three-day history of expressive aphasia and some questionable right-sided weakness which the patient denies this is related to her bed shoulder but the son has noted weakness in the left arm and patient is unable to raise the left arm. She was apparently admitted to [facility] about 6 weeks ago with the same sy mptoms and at that time she underwent echocardiogram with Doppler study and the son was told by someone at that time that they've possibly saw a flutter. Unfortunately the results of the testing which are [facility] are not available to us at this time. This onset over a three-week period the patient's symptoms resolved and she was back to normal. Upon presentation chest x-ray showed a very limited exam with cardiomegaly and diffuse interstitial vascular density possible CHF with pulmonary vascular congestion, patchy left basilar atelectasis versus developing infiltrate, mild superior endplate deformity of the mid thoracic vertebral body which is new from 2015, Age indeterminate. Com puted tomography scan of the brain showed mild atrophy, no acute intracranial abnormality seen, moderate fluent burden of small vessel ischemic disease. CT angiography had a neck showed mild proximal right ICA stenosis, severe approximately 70% proximal left ICA stenosis at the upper left carotid bulb, CAD and pulmonary arterial hypertension, moderate atherosclerotic calcification throughout the bilateral carotid siphons contributing to variable mild intracranial ICA narrowing throughout, more focal mild to moderate stenosis of supraclinoid left ICA, no large vessel intracranial arterial occlusion or significant stenosis. EKG showed sinus mechanism with PACs. No evidence of arrhythmia on telemetry. Neurology has been consulted and patient is scheduled for MRI today. Laboratory values showed potassium 3.4, hemoglobin 10.9, BUN 12, creatinine 0.51, troponin has been negative 1. Home medications include rosuvastatin 5 mg by mouth daily, methotrexate, losartan 50 mg by mouth daily, level thyroxine, Lasix 40 mg daily which the patient admits to taking 80 mg daily, folic acid, low-dose aspirin and clopidogrel. She's been initiated on Brilinta and atorvastatin 80mg daily. Overall she's feeling a bit better. She has regained some strength in her arm and her speech is improving. 08/14/21 History was seen and examined resting comfortably in bed. Appears to be having more issues with speech today. Right upper extremity continues to be quite weak. She was seen by vascular and it appears the plan is for open surgical intervention at some point in the next few weeks. She's had no evidence of arrhythmia on telemetry. Echocardiogram with Doppler study showed overall LV systolic function with mild to moderate MR and mild aortic stenosis and negative agitated saline bubble study for [id number] shunt. Blood pressure is elevated. Dry showed scattered acute/subacute microinfarcts involving the left MCA territory including the left frontal and parietal lobes with nonspecific white matter changes, likely secondary to small vessel ischemic disease. Objective - Vital Signs Vital signs: Vital Signs Temp 99.1 F 08/14/21 11:26 Pulse 84 08/14/21 11:26 Resp 16 08/14/21 11:26 BP 162/82 08/14/21 11:26 Pulse Ox 94 L 08/14/21 11:26 FiO2 Intake & Output 08/13/21 08/14/21 08/14/21 18:59 06:59 18:59 Intake Total 818 118 Output Total 550 1750 700 Balance 268 1750 582 Intake: IV 700 Sodium Chloride 0.9% 1, 700 000 ml @ 100 mls/hr IV . Q10H [facility] Rx#:[id number] Oral 118 118 Output: Urine 550 1750 700 Other: Voiding Method Diaper Diaper Diaper External Catheter External Catheter External Catheter # Bowel Movements 1 - Exam HEENT: Head is atraumatic, normocephalic. Pupils are equal, round. Sclerae anicteric. Conjunctivae are clear. Mucous membranes of the mouth are moist. Neck is supple. There is no elevated jugular venous pressure. Left carotid bruit is heard. CHEST EXAMINATION: Clear to auscultation bilaterally. No wheezes rales or rhonchi. Respirations even and nonlabored. HEART EXAMINATION: Heart regular, positive S1 and S2. No S3. No S4. Systolic ejection murmur at the base. ABDOMEN: Soft, nontender. Bowel sounds are heard. No organomegaly noted. EXTREMITIES: 1+ peripheral pulses with evidence of mild peripheral edema and no calf tenderness noted. NEUROLOGIC EXAMINATION: Patient is awake, alert and oriented x3. Expressive aphasia, right sided weakness. - Labs CBC & Chem 7: 08/14/21 07:32 08/14/21 07:32 Labs: Abnormal Lab Results - Last 24 Hours (Table) 08/12/21 08/13/21 08/13/21 Range/Units 13:43 16:37 20:27 RBC (3.80-5.40) m/uL Hgb (11.4-16.0) gm/dL MCV (80.0-100.0) fL RDW (11.5-15.5) % Neutrophils # (1.3-7.7) k/uL Lymphocytes # (1.0-4.8) k/uL Sodium (137-145) mmol/L Potassium (3.5-5.1) mmol/L Chloride (98-107) mmol/L BUN (7-17) mg/dL Creatinine (0.52-1.04) mg/dL Glucose (74-99) mg/dL POC Glucose (mg/dL) 178 H 157 H (70-110) mg/dL Hemoglobin A1c 6.4 H (0.0-6.0) % Calcium (8.4-10.2) mg/dL 08/14/21 08/14/21 08/14/21 Range/Units 06:20 07:32 07:32 RBC 3.31 L (3.80-5.40) m/uL Hgb 11.3 L (11.4-16.0) gm/dL MCV 104.2 H (80.0-100.0) fL RDW 16.5 H (11.5-15.5) % Neutrophils # 8.5 H (1.3-7.7) k/uL Lymphocytes # 0.8 L (1.0-4.8) k/uL Sodium 130 L (137-145) mmol/L Potassium 3.2 L (3.5-5.1) mmol/L Chloride 96 L (98-107) mmol/L BUN 4 L (7-17) mg/dL Creatinine 0.40 L (0.52-1.04) mg/dL Glucose 164 H (74-99) mg/dL POC Glucose (mg/dL) 175 H (70-110) mg/dL Hemoglobin A1c (0.0-6.0) % Calcium 8.2 L (8.4-10.2) mg/dL 08/14/21 Range/Units 11:44 RBC (3.80-5.40) m/uL Hgb (11.4-16.0) gm/dL MCV (80.0-100.0) fL RDW (11.5-15.5) % Neutrophils # (1.3-7.7) k/uL Lymphocytes # (1.0-4.8) k/uL Sodium (137-145) mmol/L Potassium (3.5-5.1) mmol/L Chloride (98-107) mmol/L BUN (7-17) mg/dL Creatinine (0.52-1.04) mg/dL Glucose (74-99) mg/dL POC Glucose (mg/dL) 165 H (70-110) mg/dL Hemoglobin A1c (0.0-6.0) % Calcium (8.4-10.2) mg/dL Assessment and Plan Assessment: #1 CVA #2 left ICA stenosis of at least 70% her CTA, vascular surgery is following, planning for possible open surgical intervention #3 history of a TIA in June 2021 #4 questionable atrial flutter while at [facility] in June, records currently not available #5 hypertension #6 hyperlipidemia #7 questionable diabetes Plan: From cardiology 's perspective we will increase losartan. Continue to monitor for arrhythmia. Patient will likely benefit from either a loop recorder or event monitor as an outpatient. We will continue to follow the patient and provide further recommendations accordingly. REAL ESTATE PROCESSOR note has been reviewed, I agree with a documented findings and plan of care. Patient was seen and examined.
[2021-08-14] MEDS: POTASSIUM CHLORIDE ER 20 MEQ TAB.ER PO SCH ×3 (14:45→19:36)
[2021-08-14 16:55] LABS: Glucose,Whole Blood 201 mg/dL (70-110)
[2021-08-14] MEDS ORDERED: Magnesium Replacement Protocol 1 EACH MISC MISCELLANE PRN (19:17)
[2021-08-14] MEDS: MAGNESIUM SULFATE-D5W PMX 1 GM in DEXTROSE/WATER 1 100ML.BAG IVPB SCH ×3 (19:34→23:53)
[2021-08-14] MEDS: ATORVASTATIN 80 MG TAB PO SCH (20:18)
[2021-08-14] MEDS: LOSARTAN 50 MG TAB PO SCH (20:18)
[2021-08-14 20:29] LABS: Glucose,Whole Blood 185 mg/dL (70-110)
[2021-08-14] MEDS: INSULIN ASPART (NovoLOG) 100 UNIT/ML VIAL SQ SCH (20:47)
[2021-08-14] MEDS: ACETAMINOPHEN TAB 500 MG TAB PO PRN (20:49)
--- NOTE | 2021-08-14 21:40 | XR ---
EXAMINATION TYPE: XR chest 1V portable DATE OF EXAM: 08/14/2021 COMPARISON: 08/12/2021 HISTORY: Difficulty breathing TECHNIQUE: FINDINGS: There is mild linear density left lateral lung base. No heart failure. Heart size is normal . Bony thorax appears intact. IMPRESSION: There is mild pleural reaction and subsegmental atelectasis left lung base without change .
[2021-08-15 02:50] LABS: Appearance,Urine Clear (Clear); Bacteria,Urine Occasional /hpf; Bilirubin,Urine Negative (Negative); Blood,Urine Moderate (Negative); Color,Urine Light Yellow; Glucose,Urine (UA) Negative (Negative); Hyaline Casts,Urine 3 /lpf (0-2); Ketones,Urine Negative (Negative); Leukocyte Esterase,Urine Negative (Negative); Nitrite,Urine Negative (Negative); PH, Urine 6.5 (5.0-8.0); Protein,Urine Negative (Negative); RBC,Urine 61 /hpf (0-5); Specific Gravity,Urine 1.008 (1.001-1.035); Squamous Epithelial Cell,Urine 2 /hpf (0-4); Urobilinogen,Urine <2.0 mg/dL (<2.0); WBC,Urine 3 /hpf (0-5)
[2021-08-15 06:20] LABS: Glucose,Whole Blood 160 mg/dL (70-110)
[2021-08-15] MEDS: INSULIN ASPART (NovoLOG) 100 UNIT/ML VIAL SQ SCH ×4 (06:47→20:33)
[2021-08-15] MEDS: LEVOTHYROXINE 50 MCG TAB PO SCH (06:47)
[2021-08-15] MEDS: SODIUM CHLORIDE 0.9% 1,000 ML IV SCH ×2 (06:47→18:09)
[2021-08-15] MEDS: PANTOPRAZOLE 40 MG TABLET PO SCH (06:47)
[2021-08-15 08:38] LABS: Anisocytosis Slight; Basophils # (A) 0.1 k/uL (0-0.2); Basophils % (A) 1 %; Eosinophils # (A) 0.1 k/uL (0-0.7); Eosinophils % (A) 1 %; HCT 33.4 % (34.0-46.0); HGB 10.9 gm/dL (11.4-16.0); Lymphocytes # (A) 0.8 k/uL (1.0-4.8); Lymphocytes % (A) 7 %; MCH 33.7 pg (25.0-35.0); MCHC 32.5 g/dL (31.0-37.0); MCV 103.5 fL (80.0-100.0); Macrocytosis Moderate; Mean Platelet Volume 7.2; Monocytes # (A) 0.6 k/uL (0-1.0); Monocytes % (A) 5 %; Neutrophils # (A) 9.8 k/uL (1.3-7.7); Neutrophils % (A) 86 %; Platelet Count 389 k/uL (150-450); RBC 3.23 m/uL (3.80-5.40); RDW 16.1 % (11.5-15.5); WBC 11.4 k/uL (3.8-10.6)
[2021-08-15 09:01] LABS: ALT 10 U/L (4-34); AST 28 U/L (14-36); African American GFR (CKD) >90 (>60 ml/min/1.73 sqM); Albumin 3.3 g/dL (3.5-5.0); Alkaline Phosphatase 78 U/L (38-126); Anion Gap 7 mmol/L; Blood Urea Nitrogen 6 mg/dL (7-17); Carbon Dioxide 26 mmol/L (22-30); Chloride 96 mmol/L (98-107); Glucose 135 mg/dL (74-99); Non-African American GFR(CKD) >90 (>60 ml/min/1.73 sqM); Potassium 3.8 mmol/L (3.5-5.1); Sodium 129 mmol/L (137-145); Total Bilirubin 0.9 mg/dL (0.2-1.3); Total Protein 6.3 g/dL (6.3-8.2)
[2021-08-15] MEDS: FOLIC ACID 1 MG TAB PO SCH (09:37)
[2021-08-15] MEDS: FUROSEMIDE 40 MG TAB PO SCH (09:37)
[2021-08-15] MEDS: HEPARIN SODIUM,PORCINE/PF 5,000 UNIT/0.5 ML SYRINGE SQ SCH ×2 (09:37→20:36)
[2021-08-15] MEDS: LOSARTAN 50 MG TAB PO SCH ×2 (09:37→20:36)
[2021-08-15] MEDS: ASPIRIN 325 MG TAB PO SCH (09:37)
[2021-08-15] MEDS: cycloSPORINE 0.05% OPHTH 0.4 ML DROPERETTE BOTH EYES SCH ×2 (09:38→21:10)
[2021-08-15] MEDS: TICAGRELOR 90 MG TAB PO SCH ×2 (09:39→20:36)
[2021-08-15] MEDS: NYSTATIN 100,000UNIT/GM CREAM 30 GM TUBE TOPICAL SCH ×2 (09:40→20:36)
--- NOTE | 2021-08-15 10:23 | P.PN ---
Subjective Progress Note Date: 08/15/21 This is a pleasant 81-year-old female patient who does not follow regularly with the caddie. She has a past medical history of hypertension, hyperlipidemia, questionable history of diabetes and history of rheumatoid arthritis. Presented to the emergency department with a 2 to three-day history of expressive aphasia and some questionable right-sided weakness which the patient denies this is related to her bed shoulder but the son has noted weakness in the left arm and patient is unable to raise the left arm. She was apparently admitted to [facility] about 6 weeks ago with the same sy mptoms and at that time she underwent echocardiogram with Doppler study and the son was told by someone at that time that they've possibly saw a flutter. Unfortunately the results of the testing which are [facility] are not available to us at this time. This onset over a three-week period the patient's symptoms resolved and she was back to normal. Upon presentation chest x-ray showed a very limited exam with cardiomegaly and diffuse interstitial vascular density possible CHF with pulmonary vascular congestion, patchy left basilar atelectasis versus developing infiltrate, mild superior endplate deformity of the mid thoracic vertebral body which is new from 2015, Age indeterminate. Com puted tomography scan of the brain showed mild atrophy, no acute intracranial abnormality seen, moderate fluent burden of small vessel ischemic disease. CT angiography had a neck showed mild proximal right ICA stenosis, severe approximately 70% proximal left ICA stenosis at the upper left carotid bulb, CAD and pulmonary arterial hypertension, moderate atherosclerotic calcification throughout the bilateral carotid siphons contributing to variable mild intracranial ICA narrowing throughout, more focal mild to moderate stenosis of supraclinoid left ICA, no large vessel intracranial arterial occlusion or significant stenosis. EKG showed sinus mechanism with PACs. No evidence of arrhythmia on telemetry. Neurology has been consulted and patient is scheduled for MRI today. Laboratory values showed potassium 3.4, hemoglobin 10.9, BUN 12, creatinine 0.51, troponin has been negative 1. Home medications include rosuvastatin 5 mg by mouth daily, methotrexate, losartan 50 mg by mouth daily, level thyroxine, Lasix 40 mg daily which the patient admits to taking 80 mg daily, folic acid, low-dose aspirin and clopidogrel. She's been initiated on Brilinta and atorvastatin 80mg daily. Overall she's feeling a bit better. She has regained some strength in her arm and her speech is improving. 08/14/21 History was seen and examined resting comfortably in bed. Appears to be having more issues with speech today. Right upper extremity continues to be quite weak. She was seen by vascular and it appears the plan is for open surgical intervention at some point in the next few weeks. She's had no evidence of arrhythmia on telemetry. Echocardiogram with Doppler study showed overall LV systolic function with mild to moderate MR and mild aortic stenosis and negative agitated saline bubble study for [id number] shunt. Blood pressure is elevated. Dry showed scattered acute/subacute microinfarcts involving the left MCA territory including the left frontal and parietal lobes with nonspecific white matter changes, likely secondary to small vessel ischemic disease. 08/15/21 She was seen and examined this morning with significantly embedded. She is overall feeling fairly well. Her speech seems to be somewhat better today. She continues to have significant weakness in the right arm. She denies any chest discomfort or shortness of breath. She did have a chest x-ray last night due to some difficulty breathing that showed mild pleural reaction and subsegmental atelectasis left lung base without change. She continues on aspirin, Lipitor, furosemide, losartan, and Brilinta. Blood pressure is somewhat better controlled this morning after increasing losartan to 50 mg by mouth twice a day. Objective - Vital Signs Vital signs: Vital Signs Temp 99.3 F 08/15/21 04:00 Pulse 86 08/15/21 04:00 Resp 20 08/15/21 04:00 BP 144/84 08/15/21 04:00 Pulse Ox 96 08/15/21 04:00 FiO2 Intake & Output 08/14/21 08/15/21 08/15/21 18:59 06:59 18:59 Intake Total 618 118 Output Total 700 400 Balance -82 -400 118 Intake: Oral 618 118 Output: Urine 700 400 Other: Voiding Method Diaper Diaper External Catheter External Catheter # Voids 1 - Exam HEENT: Head is atraumatic, normocephalic. Pupils are equal, round. Sclerae anicteric. Conjunctivae are clear. Mucous membranes of the mouth are moist. Neck is supple. There is no elevated jugular venous pressure. Left carotid bruit is heard. CHEST EXAMINATION: Clear to auscultation bilaterally. No wheezes rales or rhonchi. Respirations even and nonlabored. HEART EXAMINATION: Heart regular, positive S1 and S2. No S3. No S4. Systolic ejection murmur at the base. ABDOMEN: Soft, nontender. Bowel sounds are heard. No organomegaly noted. EXTREMITIES: 1+ peripheral pulses with evidence of mild peripheral edema and no calf tenderness noted. NEUROLOGIC EXAMINATION: Patient is awake, alert and oriented x3. Expressive aphasia, right sided weakness. - Labs CBC & Chem 7: 08/15/21 07:55 08/15/21 07:55 Labs: Abnormal Lab Results - Last 24 Hours (Table) 08/14/21 08/14/21 08/14/21 Range/Units 11:44 16:53 18:11 WBC (3.8-10.6) k/uL RBC (3.80-5.40) m/uL Hgb (11.4-16.0) gm/dL Hct (34.0-46.0) % MCV (80.0-100.0) fL RDW (11.5-15.5) % Neutrophils # (1.3-7.7) k/uL Lymphocytes # (1.0-4.8) k/uL POC Glucose (mg/dL) 165 H 201 H (70-110) mg/dL Magnesium 1.1 L (1.6-2.3) mg/dL Urine Blood (Negative) Urine RBC (0-5) /hpf Urine Bacteria (None) /hpf Hyaline Casts (0-2) /lpf 08/14/21 08/15/21 08/15/21 Range/Units 20:28 02:00 06:18 WBC (3.8-10.6) k/uL RBC (3.80-5.40) m/uL Hgb (11.4-16.0) gm/dL Hct (34.0-46.0) % MCV (80.0-100.0) fL RDW (11.5-15.5) % Neutrophils # (1.3-7.7) k/uL Lymphocytes # (1.0-4.8) k/uL POC Glucose (mg/dL) 185 H 160 H (70-110) mg/dL Magnesium (1.6-2.3) mg/dL Urine Blood Moderate H (Negative) Urine RBC 61 H (0-5) /hpf Urine Bacteria Occasional H (None) /hpf Hyaline Casts 3 H (0-2) /lpf 08/15/21 Range/Units 07:55 WBC 11.4 H (3.8-10.6) k/uL RBC 3.23 L (3.80-5.40) m/uL Hgb 10.9 L (11.4-16.0) gm/dL Hct 33.4 L (34.0-46.0) % MCV 103.5 H (80.0-100.0) fL RDW 16.1 H (11.5-15.5) % Neutrophils # 9.8 H (1.3-7.7) k/uL Lymphocytes # 0.8 L (1.0-4.8) k/uL POC Glucose (mg/dL) (70-110) mg/dL Magnesium (1.6-2.3) mg/dL Urine Blood (Negative) Urine RBC (0-5) /hpf Urine Bacteria (None) /hpf Hyaline Casts (0-2) /lpf Assessment and Plan Assessment: #1 CVA #2 left ICA stenosis of at least 70% her CTA, vascular surgery is following, planning for possible open surgical intervention #3 history of a TIA in June 2021 #4 questionable atrial flutter while at [facility] in June, records currently not available #5 hypertension #6 hyperlipidemia #7 questionable diabetes Plan: From cardiology 's perspective There's been no evidence at this time of any arrhythmia. We have been unsuccessful in obtaining records from [facility]. Will attempt again in the morning. Tentatively schedule the patient for a Lexiscan MPI to be done in the office as an outpatient later this week and follow-up for preoperative clearance next week. We'll continue to follow the patient and write further recommendations accordingly. DOG CONTROL OFFICER note has been reviewed, I agree with a documented findings and plan of care. Patient was seen and examined.
--- NOTE | 2021-08-15 10:59 | P.PN ---
Subjective Progress Note Date: 08/15/21 Amisha Benitez, is an 81-year-old female who presented to [facility] emergency room with a chief complaint of difficulty with her speech for the last 2 days, history was taken in the emergency room from her son who noticed that in the last 2 days patient was having difficulty finding words and expressing herself, he stated that at the facility where she lives she was noticed to have elevated blood pressure, patient was also complaining of right upper extremity weakness, she was brought to emergency room for further evaluation and treatment. She was evaluated in the emergency room vital examination on presentation revealed a temperature of 98.3 heart rate 81 respiration 20 blood pressure 140/73 pulse ox 98% on room air Laboratory data revealed a white blood count of 8.6 hemoglobin 10.9 platelet count 379 sodium 137 potassium 3.4 chloride 97 CO2 34 BUN 12 creatinine 0.51 Testing in the emergency room revealed EKG done in the emergency room revealed sinus rhythm with occasional supraventricular premature complexes and borderline left axis deviation, computed tomography scan of the brain without contrast done in the emergency room revealed mild atrophy no acute intracranial abnormality seen and moderate confluent burden of small vessel ischemic disease, chest x-ray done in the emergency room revealed possible congestive heart failure with pulmonary vascular congestion and possible thoracic vertebral end plate deformity. Patient was admitted to medical floor for further evaluation and treatment history of hypertension, history of hyperlipidemia , history of hearing difficulty, history of diabetes mellitus, history of chronic pain maintained on tramadol, history of hypothyroidism, and history of rheumatoid arthritis On 08/14/2021 patient was seen and examined on the telemetry floor she is alert and oriented 3 in no apparent distress she is still having difficulty with her speech she reports improvement in her right upper extremity weakness otherwise she denies any complaints there is no fever or chills no headache or dizziness no chest pain no shortness of breath no cough no nausea or vomiting no abdominal pain no diarrhea no blood in the stools no burning with urination no frequency or urgency and no hematuria, physical therapy and occupational therapy and speech therapy consult, vascular surgery consult regarding possible carotid endarterectomy On 08/15/2021 patient was seen and examined on the telemetry floor she is alert and oriented 3 in no apparent distress, she was having episodes of elevated temperature the night, T-max was 100.4, currently her temperature is 99.6, heart rate 86 respiration 18 blood pressure 146/77 pulse ox 96% on room air, white blood count is more elevated today at 11.4 as compared to 9.9 yesterday, there is no clear clinical or laboratory evidence of infection, urine analysis chest x-ray and blood culture were ordered, patient denies any diarrhea or any open ulcers on her skin, at this time she is not on any antibiotics will continue to monitor closely, consult for infectious disease was initiated Objective - Vital Signs Vital signs: Vital Signs Temp 99.6 F 08/15/21 09:35 Pulse 86 08/15/21 09:35 Resp 18 08/15/21 09:35 BP 146/77 08/15/21 09:35 Pulse Ox 96 08/15/21 09:35 FiO2 Intake & Output 08/14/21 08/15/21 08/15/21 18:59 06:59 18:59 Intake Total 618 118 Output Total 700 400 Balance -82 -400 118 Intake: Oral 618 118 Output: Urine 700 400 Other: Voiding Method Diaper Diaper Diaper External Catheter External Catheter External Catheter # Voids 1 - Exam In general patient is alert and oriented x 3 in no distress HEENT head normocephalic and atraumatic Neck is supple no JVD no goiter no lymphadenopathy no carotid bruit Chest examination is clear to auscultation no crackles no wheezing Cardiac exam reveals regular heart sounds S1 and S2 no gallops no murmurs Abdomen is soft nontender no organomegaly with normal bowel sounds Extremity exam reveals no edema no cyanosis or clubbing Neurological examination reveals mild difficulty with her speech, improved since yesterday per her son at bedside, and minimal right upper extremity weakness as compared to the left otherwise no focal gross deficits - Labs CBC & Chem 7: 08/15/21 07:55 08/15/21 07:55 Labs: Abnormal Lab Results - Last 24 Hours (Table) 08/14/21 08/14/21 08/14/21 Range/Units 11:44 16:53 18:11 WBC (3.8-10.6) k/uL RBC (3.80-5.40) m/uL Hgb (11.4-16.0) gm/dL Hct (34.0-46.0) % MCV (80.0-100.0) fL RDW (11.5-15.5) % Neutrophils # (1.3-7.7) k/uL Lymphocytes # (1.0-4.8) k/uL Sodium (137-145) mmol/L Chloride (98-107) mmol/L BUN (7-17) mg/dL Creatinine (0.52-1.04) mg/dL Glucose (74-99) mg/dL POC Glucose (mg/dL) 165 H 201 H (70-110) mg/dL Calcium (8.4-10.2) mg/dL Magnesium 1.1 L (1.6-2.3) mg/dL Albumin (3.5-5.0) g/dL Urine Blood (Negative) Urine RBC (0-5) /hpf Urine Bacteria (None) /hpf Hyaline Casts (0-2) /lpf 08/14/21 08/15/21 08/15/21 Range/Units 20:28 02:00 06:18 WBC (3.8-10.6) k/uL RBC (3.80-5.40) m/uL Hgb (11.4-16.0) gm/dL Hct (34.0-46.0) % MCV (80.0-100.0) fL RDW (11.5-15.5) % Neutrophils # (1.3-7.7) k/uL Lymphocytes # (1.0-4.8) k/uL Sodium (137-145) mmol/L Chloride (98-107) mmol/L BUN (7-17) mg/dL Creatinine (0.52-1.04) mg/dL Glucose (74-99) mg/dL POC Glucose (mg/dL) 185 H 160 H (70-110) mg/dL Calcium (8.4-10.2) mg/dL Magnesium (1.6-2.3) mg/dL Albumin (3.5-5.0) g/dL Urine Blood Moderate H (Negative) Urine RBC 61 H (0-5) /hpf Urine Bacteria Occasional H (None) /hpf Hyaline Casts 3 H (0-2) /lpf 08/15/21 08/15/21 Range/Units 07:55 07:55 WBC 11.4 H (3.8-10.6) k/uL RBC 3.23 L (3.80-5.40) m/uL Hgb 10.9 L (11.4-16.0) gm/dL Hct 33.4 L (34.0-46.0) % MCV 103.5 H (80.0-100.0) fL RDW 16.1 H (11.5-15.5) % Neutrophils # 9.8 H (1.3-7.7) k/uL Lymphocytes # 0.8 L (1.0-4.8) k/uL Sodium 129 L (137-145) mmol/L Chloride 96 L (98-107) mmol/L BUN 6 L (7-17) mg/dL Creatinine 0.38 L (0.52-1.04) mg/dL Glucose 135 H (74-99) mg/dL POC Glucose (mg/dL) (70-110) mg/dL Calcium 8.0 L (8.4-10.2) mg/dL Magnesium (1.6-2.3) mg/dL Albumin 3.3 L (3.5-5.0) g/dL Urine Blood (Negative) Urine RBC (0-5) /hpf Urine Bacteria (None) /hpf Hyaline Casts (0-2) /lpf Assessment and Plan Plan: Possible Acute to subacute ischemic stroke, with expressive aphasia and right upper extremity weakness Evidence of left internal carotid artery stenosis on CT angiogram of the neck Underlying history of hypertension Underlying history of hyperlipidemia Underlying history of hypothyroidism Underlying history of [id number] diabetes mellitus Underlying history of rheumatoid arthritis Underlying history of chronic pain At this time patient is admitted to telemetry floor Neurology consultation and cardiology consultation requested Echocardiogram ordered She is maintained on aspirin and She was started on Lipitor 80 mg daily For DVT prophylaxis patient is on subcu heparin For GI prophylaxis Will add Protonix Physical therapy occupational therapy and speech therapy consult requested Will follow closely
[2021-08-15 11:57] LABS: Glucose,Whole Blood 240 mg/dL (70-110)
--- NOTE | 2021-08-15 12:21 | P.PN ---
Subjective Progress Note Date: 08/15/21 The patient is seen at bedside and feels about the same. Continues to have weakness over the right upper extremity and some speech difficulty. Objective - Vital Signs Vital signs: Vital Signs Temp 99.6 F 08/15/21 09:35 Pulse 86 08/15/21 09:35 Resp 18 08/15/21 09:35 BP 146/77 08/15/21 09:35 Pulse Ox 96 08/15/21 09:35 FiO2 Intake & Output 08/14/21 08/15/21 08/15/21 18:59 06:59 18:59 Intake Total 618 118 Output Total 700 400 Balance -82 -400 118 Intake: Oral 618 118 Output: Urine 700 400 Other: Voiding Method Diaper Diaper Diaper External Catheter External Catheter External Catheter # Voids 1 - Exam GENERAL: The patient is lying in bed and is not in acute distress. NEUROLOGICAL: Higher mental function: The patient is awake, alert, oriented to self, place and time. Patient is following commands. Has Mild to moderate expressive aphasia (some word finding difficulty and at time difficulty repeating sentences). No neglect. Cranial nerves: The pupils are round, equal and reactive to light and accommodation. Visual nuñez are full to confrontation throughout. Extraocular movement is intact no nystagmus is noted. Facial sensation is normal to touch throughout. The facial strength is normal throughout. Hearing is severely decreased bilaterally to hand rub (currently does not have her hearing aids). Tongue is midline and moved [id number] without any difficulty. No dysarthria is noted. Shoulder shrug is normal bilaterally. Motor: The strength is right upper extremity: Forearm flexion/extension is 3, right hand marketing community liaison is 3-4 while proximal is limited because of pain. Otherwise 5 over 5 throughout. Normal tone and bulk. Cerebellum: Normal finger to nose bilaterally. Sensation: Sensation is normal to touch throughout. Reflexes (right/left): 3+ over the left upper, 2+ over the right upper. 0 (bilateral knee replacement). Plantars could not assess because of her cooperation. Some other workup during this hospital visit consisted of: Lipid panel is triglyceride of 78, cholesterol 278, LDLs 88 and HDL 73. TSH: 1.[address] of the head is reported as mild atrophy. No acute intracranial abnormality seen. Moderate confluent burden of small vessel ischemic disease. I personally reviewed the CT of the head and I agree with the report. CT angiography of the neck is reported as mild proximal with her percent proximal right ICA stenosis at. Severe approximately 70% proximal left ICA stenosis at the upper left carotid bulb. Coronary artery disease and pulmonary arterial hypertension. Given interstitial changes throughout the long, correlate to exclude pulmonary vascular congestion/congestive heart failure CT angiography of the head is reported as moderate atherosclerotic as effusion throughout the bilateral carotid siphons contributing to variable mild intracranial ICA narrowing throughout. More focal mild to moderate stenosis of the supraclinoid left ICA. No large vessel intracranial artery occlusion or significant stenosis. No aneurysm change. 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 MR the brain is reported as scattered acute/subacute microinfarcts involving the left MCA territory including the left frontal and parietal lobe. I personally reviewed the MRI and I feel it's mostly left frontal some parietal and that the border of occipital temporal region. Carotid duplex is reported as 50-69% stenosis of bilateral carotid bifurcation by peak systolic velocity. 2-D echo was reported as normal left ventricle size and systolic function. Mild to moderate mitral regurgitation. Mild aortic stenosis. Left atrium is severely increased left atrial volume intra-atrial septum aneurysm - Labs CBC & Chem 7: 08/15/21 07:55 08/15/21 07:55 Labs: Abnormal Lab Results - Last 24 Hours (Table) 08/14/21 08/14/21 08/14/21 Range/Units 16:53 18:11 20:28 WBC (3.8-10.6) k/uL RBC (3.80-5.40) m/uL Hgb (11.4-16.0) gm/dL Hct (34.0-46.0) % MCV (80.0-100.0) fL RDW (11.5-15.5) % Neutrophils # (1.3-7.7) k/uL Lymphocytes # (1.0-4.8) k/uL Sodium (137-145) mmol/L Chloride (98-107) mmol/L BUN (7-17) mg/dL Creatinine (0.52-1.04) mg/dL Glucose (74-99) mg/dL POC Glucose (mg/dL) 201 H 185 H (70-110) mg/dL Calcium (8.4-10.2) mg/dL Magnesium 1.1 L (1.6-2.3) mg/dL Albumin (3.5-5.0) g/dL Urine Blood (Negative) Urine RBC (0-5) /hpf Urine Bacteria (None) /hpf Hyaline Casts (0-2) /lpf 08/15/21 08/15/21 08/15/21 Range/Units 02:00 06:18 07:55 WBC 11.4 H (3.8-10.6) k/uL RBC 3.23 L (3.80-5.40) m/uL Hgb 10.9 L (11.4-16.0) gm/dL Hct 33.4 L (34.0-46.0) % MCV 103.5 H (80.0-100.0) fL RDW 16.1 H (11.5-15.5) % Neutrophils # 9.8 H (1.3-7.7) k/uL Lymphocytes # 0.8 L (1.0-4.8) k/uL Sodium (137-145) mmol/L Chloride (98-107) mmol/L BUN (7-17) mg/dL Creatinine (0.52-1.04) mg/dL Glucose (74-99) mg/dL POC Glucose (mg/dL) 160 H (70-110) mg/dL Calcium (8.4-10.2) mg/dL Magnesium (1.6-2.3) mg/dL Albumin (3.5-5.0) g/dL Urine Blood Moderate H (Negative) Urine RBC 61 H (0-5) /hpf Urine Bacteria Occasional H (None) /hpf Hyaline Casts 3 H (0-2) /lpf 08/15/21 08/15/21 Range/Units 07:55 11:55 WBC (3.8-10.6) k/uL RBC (3.80-5.40) m/uL Hgb (11.4-16.0) gm/dL Hct (34.0-46.0) % MCV (80.0-100.0) fL RDW (11.5-15.5) % Neutrophils # (1.3-7.7) k/uL Lymphocytes # (1.0-4.8) k/uL Sodium 129 L (137-145) mmol/L Chloride 96 L (98-107) mmol/L BUN 6 L (7-17) mg/dL Creatinine 0.38 L (0.52-1.04) mg/dL Glucose 135 H (74-99) mg/dL POC Glucose (mg/dL) 240 H (70-110) mg/dL Calcium 8.0 L (8.4-10.2) mg/dL Magnesium (1.6-2.3) mg/dL Albumin 3.3 L (3.5-5.0) g/dL Urine Blood (Negative) Urine RBC (0-5) /hpf Urine Bacteria (None) /hpf Hyaline Casts (0-2) /lpf Assessment and Plan Assessment: Acute to subacute ischemic stroke (symptoms of Expressive aphasia and right upper extremity weakness. MRI Brain: I felt stroke over left fronto/parietal and temporal/occipital region). I feel stroke likely due to symptomatic left ICA. Symptomatic Left ICA stenosis at least 70% stenosis per CTA Has similar episode in June 2021 and appeared TIA Reported questionable atrial flutter in June 2021 (notified at outside facility--[facility]) Very hard of hearing Plan: * Continue ASA 325mg daily (was on 81mg) and stopped Plavix since he failed all start the patient on Brilinta 90 mg 1 tablet 1 tablet twice a day with a loading dose of 180 mg once. Continue Lipitor 80 mg qhs for secondary stroke prophylaxis and that would help with stablize plaque over the left ICA. * Vascular surgery team is consulted for the left ICA stenosis since it symptomatic. They agree she is surgical candidate for possible CEA and to follow-up as outpatient. * Consulted cardiology team for ?reported atrial flutter in June 2021 (over at [facility]). So far unsuccessful in obtaining records from outpatient facility. They recommended Lexiscan MPI as outpatient. Recommend event monitor for 30 days and to be coordinated by cardiology. * 2-D echo was reported as normal left ventricle size and systolic function. Mild to moderate mitral regurgitation. Mild aortic stenosis. Left atrium is severely increased left atrial volume intra-atrial septum aneurysm. * Every 4 hours neuro checks * Continue cardiac monitoring * PT, OT and PBX REPAIRER are consulted * We'll defer the rest of the medical management to the primary team * For DVT prophylaxis Continue subcu heparin 5000 units every 12 hours * We'll defer the rest of the medical management to primary team. * Consulted Dr. Yary for inpatient rehab which I feel patient will benefit from. The plan is discussed with patient and her nurse. Jose Lobato M.D. Neuro-hospitalist Time with Patient: Less than 30
[2021-08-15 16:39] LABS: Glucose,Whole Blood 156 mg/dL (70-110)
[2021-08-15] MEDS: ACETAMINOPHEN TAB 500 MG TAB PO PRN (17:20)
[2021-08-15 20:19] LABS: Glucose,Whole Blood 119 mg/dL (70-110)
[2021-08-15] MEDS: ATORVASTATIN 80 MG TAB PO SCH (20:36)
--- NOTE | 2021-08-15 22:40 | P.CONS ---
History of Present Illness - Reason for Consult Consult date: 08/15/21 - History of Present Illness Patient is 81 old female presenting to the hospital 4 days ago on 08/12/2021 for expressive aphasia apparently has been going on for 2 days before presenting to the hospital patient denied any weakness or numbness no headache or any focal weakness patient was complaining of having trouble finding words patient was diagnosed with a CVA did have a CT of the brain mild atrophy no acute intracranial hemorrhage MRI of the brain was completed on 2 scatted acute subacute microinfarcts involving the left MCA territory patient has been evaluated by neurology services as well as vascular surgery and there was a near complete occlusion of the internal carotid artery this patient was afebrile however she did spike a fever last reading of 100. 4 F, patient is currently breathing comfortably on room air denies any headache no chest pain or shortness with occasional cough denies any nausea vomiting abdominal pain or any diarrhea no urinary symptoms patient did have a white count of 11.4 with a left shift BUN and creatinine has been levels are normal urine has been negative patient did have a chest x-ray mild pleural reaction atelectasis left lung base interstitial edema more Mack further management to cover for fever and low white count Past Medical History Past Medical History: Unable to Obtain History of Any Multi-Drug Resistant Organisms: None Reported Past Surgical History: Unable to Obtain Past Anesthesia/Blood Transfusion Reactions: No Reported Reaction Past Psychological History: No Psychological Hx Reported, Unable to Obtain Smoking Status: Former smoker Past Alcohol Use History: None Reported Past Drug Use History: None Reported Medications and Allergies Home Medications Medication Instructions Recorded Confirmed Type Folic Acid 1 mg PO DAILY 01/22/15 08/12/21 History Levothyroxine Sodium [Synthroid] 50 mg PO DAILY 01/22/15 08/12/21 History Methotrexate Sodium/Pf 25 unit SQ TU 01/22/15 08/12/21 History [Methotrexate 100 mg/4 ml Vial] Aspirin EC [Ecotrin Low Dose] 81 mg PO DAILY 08/12/21 08/12/21 History Clopidogrel [Plavix] 75 mg PO DAILY 08/12/21 08/12/21 History Furosemide [Lasix] 40 mg PO DAILY 08/12/21 08/12/21 History Losartan [Cozaar] 50 mg PO DAILY 08/12/21 08/12/21 History Nystatin 100,000Unit/gm Cream 1 applic TOPICAL BID 08/12/21 08/12/21 History [Mycostatin Cream] Rosuvastatin Calcium [Crestor] 5 mg PO DAILY 08/12/21 08/12/21 History cycloSPORINE 0.05% OPHTH SOLN 1 drop BOTH EYES BID 08/12/21 08/12/21 History [Restasis] Allergies Allergy/AdvReac Type Severity Reaction Status Date / Time No Known Allergies Allergy Verified 02/03/15 13:01 Physical Exam Vitals: Vital Signs Temp Pulse Resp BP Pulse Ox 08/15/21 12:00 98.8 F 82 20 100/58 96 08/15/21 09:35 99.6 F 86 18 146/77 96 08/15/21 04:00 99.3 F 86 20 144/84 96 08/15/21 02:00 87 18 08/14/21 23:57 98.4 F 87 18 108/65 96 08/14/21 20:00 95 20 08/14/21 19:55 100.4 F H 95 20 163/73 96 08/14/21 17:25 98.8 F 99 18 183/76 95 Intake and Output 08/14/21 08/15/21 08/15/21 22:59 06:59 14:59 Intake Total 0 476 Output Total 400 450 Balance 0 -400 26 Intake: Oral 0 476 Output: Urine 400 450 Other: Voiding Method Diaper Diaper Diaper External Catheter External Catheter External Catheter # Voids 1 Results CBC & Chem 7: 08/15/21 07:55 08/15/21 07:55 Labs: Abnormal Lab Results - Last 24 Hours (Table) 08/14/21 08/14/21 08/14/21 Range/Units 16:53 18:11 20:28 WBC (3.8-10.6) k/uL RBC (3.80-5.40) m/uL Hgb (11.4-16.0) gm/dL Hct (34.0-46.0) % MCV (80.0-100.0) fL RDW (11.5-15.5) % Neutrophils # (1.3-7.7) k/uL Lymphocytes # (1.0-4.8) k/uL Sodium (137-145) mmol/L Chloride (98-107) mmol/L BUN (7-17) mg/dL Creatinine (0.52-1.04) mg/dL Glucose (74-99) mg/dL POC Glucose (mg/dL) 201 H 185 H (70-110) mg/dL Calcium (8.4-10.2) mg/dL Magnesium 1.1 L (1.6-2.3) mg/dL Albumin (3.5-5.0) g/dL Urine Blood (Negative) Urine RBC (0-5) /hpf Urine Bacteria (None) /hpf Hyaline Casts (0-2) /lpf 08/15/21 08/15/21 08/15/21 Range/Units 02:00 06:18 07:55 WBC 11.4 H (3.8-10.6) k/uL RBC 3.23 L (3.80-5.40) m/uL Hgb 10.9 L (11.4-16.0) gm/dL Hct 33.4 L (34.0-46.0) % MCV 103.5 H (80.0-100.0) fL RDW 16.1 H (11.5-15.5) % Neutrophils # 9.8 H (1.3-7.7) k/uL Lymphocytes # 0.8 L (1.0-4.8) k/uL Sodium (137-145) mmol/L Chloride (98-107) mmol/L BUN (7-17) mg/dL Creatinine (0.52-1.04) mg/dL Glucose (74-99) mg/dL POC Glucose (mg/dL) 160 H (70-110) mg/dL Calcium (8.4-10.2) mg/dL Magnesium (1.6-2.3) mg/dL Albumin (3.5-5.0) g/dL Urine Blood Moderate H (Negative) Urine RBC 61 H (0-5) /hpf Urine Bacteria Occasional H (None) /hpf Hyaline Casts 3 H (0-2) /lpf 08/15/21 08/15/21 Range/Units 07:55 11:55 WBC (3.8-10.6) k/uL RBC (3.80-5.40) m/uL Hgb (11.4-16.0) gm/dL Hct (34.0-46.0) % MCV (80.0-100.0) fL RDW (11.5-15.5) % Neutrophils # (1.3-7.7) k/uL Lymphocytes # (1.0-4.8) k/uL Sodium 129 L (137-145) mmol/L Chloride 96 L (98-107) mmol/L BUN 6 L (7-17) mg/dL Creatinine 0.38 L (0.52-1.04) mg/dL Glucose 135 H (74-99) mg/dL POC Glucose (mg/dL) 240 H (70-110) mg/dL Calcium 8.0 L (8.4-10.2) mg/dL Magnesium (1.6-2.3) mg/dL Albumin 3.3 L (3.5-5.0) g/dL Urine Blood (Negative) Urine RBC (0-5) /hpf Urine Bacteria (None) /hpf Hyaline Casts (0-2) /lpf Assessment and Plan Plan: 1patient with a low-grade fever elevated white count in this patient presented to hospital expressive aphasia has been diagnosed with a CVA in this patient currently with no obvious physical finding suspicious for the source of infection abdominal soft on examination no evidence of any cellulitis or joint swelling new has been negative chest x-ray showed some atelectasis left lung base and a question of pneumonia. 2we will empirically add Rocephin while waiting for the work-up to be completed. 3we will check a procalcitonin level. We will follow on clinical condition and cultures to further adjust medication if needed Thank you for this consultation will follow this patient along with you Time with Patient: Greater than 30
[2021-08-16] MEDS: SODIUM CHLORIDE 0.9% 1,000 ML IV SCH (02:33)
--- NOTE | 2021-08-16 05:44 | P.CONS ---
History of Present Illness - Chief Complaint Gait disturbance, right hemiparesthesias - History of Present Illness I had the opportunity to see patient for inpatient rehab consultation with regard to gait disturbance. Patient admitted to [facility] August 12 with aphasia of 2 days[address] Dr[address] gala flower. Found to have right arm weakness. Seen in neurology by, Dr. Jose Lobato who diagnosed left ICA stenosis and stroke. Seen by cardiology for possible atrial flutter. Seen by Dr. Machuca for possible surgi carmelita intervention. Note carotid disease. Initial head CT with mild atrophy. Angiogram CT with left carotid bifurcation 70% right ICA 30%. Carotid Doppler done. Brain MRI with subacute left MCA infarcts and minimal white matter degeneration. Chest x-rays followed for mild pleural reaction and atelectasis left base. Started therapies. PT reports two-person maximal assistance for bed mobility and 2 person minimal assistance to sit and stand. OT reports supervision for feeding, minimal assistance for grooming, moderate assistance for upper dressing, two-person total assistance for lower dressing and toileting, two-person maximal assistance for bathing, and unable to perform functional mobility. Speech therapy prescribed. Previous functional history as elicited from patient: 81-year-old right-handed white female who is lives in one floor home with . Patient is independent with cooking, laundry, driving in sitdown shower. does drive. Patient is previously using walker for gait around the house. PCP Dr. gala flower. Review of Systems Review of systems: ENT: Denies sneezes or discharge. Eyes: Denies discharge or photophobia. Cardiac: Denies chest pain or palpitation. Pulmonary: Denies cough or shortness of breath. Breast: Denies discharge or lumps. Gastrointestinal: Denies nausea, emesis, constipation, diarrhea. Genitourinary: Denies discharge or frequency. Musculoskeletal: Denies muscle or bone aches. Neurologic: Right arm weakness. Endocrine: Denies shakes or sweats. Oncology: Denies cancers. Dermatologic: Denies rash, itching, pruritus. ALLERGY/immunology: Denies sneezes, rashes. Past Medical History Past Medical History: Unable to Obtain History of Any Multi-Drug Resistant Organisms: None Reported Past Surgical History: Unable to Obtain Past Anesthesia/Blood Transfusion Reactions: No Reported Reaction Past Psychological History: No Psychological Hx Reported, Unable to Obtain Smoking Status: Former smoker Past Alcohol Use History: None Reported Past Drug Use History: None Reported Medications and Allergies Home Medications Medication Instructions Recorded Confirmed Type Folic Acid 1 mg PO DAILY 01/22/15 08/12/21 History Levothyroxine Sodium [Synthroid] 50 mg PO DAILY 01/22/15 08/12/21 History Methotrexate Sodium/Pf 25 unit SQ TU 01/22/15 08/12/21 History [Methotrexate 100 mg/4 ml Vial] Aspirin EC [Ecotrin Low Dose] 81 mg PO DAILY 08/12/21 08/12/21 History Clopidogrel [Plavix] 75 mg PO DAILY 08/12/21 08/12/21 History Furosemide [Lasix] 40 mg PO DAILY 08/12/21 08/12/21 History Losartan [Cozaar] 50 mg PO DAILY 08/12/21 08/12/21 History Nystatin 100,000Unit/gm Cream 1 applic TOPICAL BID 08/12/21 08/12/21 History [Mycostatin Cream] Rosuvastatin Calcium [Crestor] 5 mg PO DAILY 08/12/21 08/12/21 History cycloSPORINE 0.05% OPHTH SOLN 1 drop BOTH EYES BID 08/12/21 08/12/21 History [Restasis] Allergies Allergy/AdvReac Type Severity Reaction Status Date / Time No Known Allergies Allergy Verified 02/03/15 13:01 Physical Exam Vitals: Vital Signs Temp Pulse Resp BP Pulse Ox 08/16/21 03:16 71 20 08/16/21 02:00 94 20 08/16/21 00:00 98.5 F 94 20 152/78 98 08/15/21 20:00 98.9 F 88 18 144/55 96 08/15/21 17:20 100.2 F H 08/15/21 16:25 99.2 F 81 22 114/83 96 08/15/21 12:00 98.8 F 82 20 100/58 96 08/15/21 09:35 99.6 F 86 18 146/77 96 Intake and Output 08/15/21 08/15/21 08/16/21 14:59 22:59 06:59 Intake Total 476 0 Output Total 450 500 Balance 26 -500 Intake: Oral 476 0 Output: Urine 450 500 Other: Voiding Method Diaper Diaper Diaper External Catheter External Catheter External Catheter # Voids 1 # Bowel Movements 1 1 Skin: Atrophic, intact. General: Overweight build and comfortable appearance. Head: Normocephalic, atraumatic. Eyes: Symmetric. Pupils equal round. Ears: Symmetric. Hearing within normal limits. Mouth: Clear. Neck: Supple. Carotid without bruit. Cardiac: Regular rate and rhythm. Lungs: Clear anteriorly and posteriorly. Abdomen: Soft active nontender. Extremities: Normal tone. Neurological: Mental status: Alert, cooperative, pleasant. Cranial nerves: Symmetric facial tone and trapezius. Motor: Active movement left arm. Poor plus movement legs and poor minus right arm. Sensation: Intact throughout. DTRs: Symmetric and equal throughout. Mobility: Requires physical assist for bed mobility. Results CBC & Chem 7: 08/15/21 07:55 08/15/21 07:55 Labs: Abnormal Lab Results - Last 24 Hours (Table) 08/15/21 08/15/21 08/15/21 Range/Units 06:18 07:55 07:55 WBC 11.4 H (3.8-10.6) k/uL RBC 3.23 L (3.80-5.40) m/uL Hgb 10.9 L (11.4-16.0) gm/dL Hct 33.4 L (34.0-46.0) % MCV 103.5 H (80.0-100.0) fL RDW 16.1 H (11.5-15.5) % Neutrophils # 9.8 H (1.3-7.7) k/uL Lymphocytes # 0.8 L (1.0-4.8) k/uL Sodium 129 L (137-145) mmol/L Chloride 96 L (98-107) mmol/L BUN 6 L (7-17) mg/dL Creatinine 0.38 L (0.52-1.04) mg/dL Glucose 135 H (74-99) mg/dL POC Glucose (mg/dL) 160 H (70-110) mg/dL Calcium 8.0 L (8.4-10.2) mg/dL Albumin 3.3 L (3.5-5.0) g/dL Procalcitonin (0.02-0.09) ng/mL 08/15/21 08/15/21 08/15/21 Range/Units 07:55 11:55 16:38 WBC (3.8-10.6) k/uL RBC (3.80-5.40) m/uL Hgb (11.4-16.0) gm/dL Hct (34.0-46.0) % MCV (80.0-100.0) fL RDW (11.5-15.5) % Neutrophils # (1.3-7.7) k/uL Lymphocytes # (1.0-4.8) k/uL Sodium (137-145) mmol/L Chloride (98-107) mmol/L BUN (7-17) mg/dL Creatinine (0.52-1.04) mg/dL Glucose (74-99) mg/dL POC Glucose (mg/dL) 240 H 156 H (70-110) mg/dL Calcium (8.4-10.2) mg/dL Albumin (3.5-5.0) g/dL Procalcitonin 0.13 H (0.02-0.09) ng/mL 08/15/21 Range/Units 20:17 WBC (3.8-10.6) k/uL RBC (3.80-5.40) m/uL Hgb (11.4-16.0) gm/dL Hct (34.0-46.0) % MCV (80.0-100.0) fL RDW (11.5-15.5) % Neutrophils # (1.3-7.7) k/uL Lymphocytes # (1.0-4.8) k/uL Sodium (137-145) mmol/L Chloride (98-107) mmol/L BUN (7-17) mg/dL Creatinine (0.52-1.04) mg/dL Glucose (74-99) mg/dL POC Glucose (mg/dL) 119 H (70-110) mg/dL Calcium (8.4-10.2) mg/dL Albumin (3.5-5.0) g/dL Procalcitonin (0.02-0.09) ng/mL Microbiology - Last 24 Hours (Table) 08/14/21 20:40 Blood Culture - Preliminary Blood No Growth after 24 hours Assessment and Plan (1) Cerebrovascular accident (CVA) Current Visit: Yes Status: Acute Code(s): I63.9 - CEREBRAL INFARCTION, UNSPECIFIED SNOMED Code(s): 407528231 Plan: Comments and plan: Patient admitted with aphasia and right arm weakness. Aphasia appears to be resolving nicely but still with right arm and bilateral leg weakness. Patient currently two-person assist for functional mobility and basic self-care tasks. Endurance issue as well. Currently ready for inpatient rehab and would benefit from a slower paced program. We will continue to follow with yourself though.
[2021-08-16 05:53] LABS: Glucose,Whole Blood 129 mg/dL (70-110)
[2021-08-16] MEDS: INSULIN ASPART (NovoLOG) 100 UNIT/ML VIAL SQ SCH ×4 (06:48→22:10)
[2021-08-16] MEDS: LEVOTHYROXINE 50 MCG TAB PO SCH (06:51)
[2021-08-16] MEDS: PANTOPRAZOLE 40 MG TABLET PO SCH (06:51)
[2021-08-16 07:41] LABS: Anisocytosis Slight; Basophils % (A) 0 %; Eosinophils # (A) 0.2 k/uL (0-0.7); Eosinophils % (A) 2 %; HCT 30.6 % (34.0-46.0); HGB 10.1 gm/dL (11.4-16.0); Lymphocytes % (A) 10 %; MCH 34.3 pg (25.0-35.0); MCHC 32.9 g/dL (31.0-37.0); MCV 104.2 fL (80.0-100.0); Macrocytosis Moderate; Mean Platelet Volume 7.8; Monocytes # (A) 0.9 k/uL (0-1.0); Monocytes % (A) 9 %; Neutrophils # (A) 8.4 k/uL (1.3-7.7); Neutrophils % (A) 79 %; Platelet Count 375 k/uL (150-450); RBC 2.94 m/uL (3.80-5.40); RDW 16.1 % (11.5-15.5); WBC 10.6 k/uL (3.8-10.6)
[2021-08-16 07:49] LABS: ALT 10 U/L (4-34); AST 30 U/L (14-36); African American GFR (CKD) >90 (>60 ml/min/1.73 sqM); Albumin 2.9 g/dL (3.5-5.0); Alkaline Phosphatase 87 U/L (38-126); Anion Gap 7 mmol/L; Blood Urea Nitrogen 9 mg/dL (7-17); Calcium 7.7 mg/dL (8.4-10.2); Carbon Dioxide 28 mmol/L (22-30); Chloride 95 mmol/L (98-107); Glucose 125 mg/dL (74-99); Non-African American GFR(CKD) >90 (>60 ml/min/1.73 sqM); Potassium 3.8 mmol/L (3.5-5.1); Sodium 130 mmol/L (137-145); Total Bilirubin 0.8 mg/dL (0.2-1.3); Total Protein 5.8 g/dL (6.3-8.2)
[2021-08-16] MEDS: NYSTATIN 100,000UNIT/GM CREAM 30 GM TUBE TOPICAL SCH ×2 (09:13→22:10)
[2021-08-16] MEDS: FUROSEMIDE 40 MG TAB PO SCH (09:13)
[2021-08-16] MEDS: HEPARIN SODIUM,PORCINE/PF 5,000 UNIT/0.5 ML SYRINGE SQ SCH ×2 (09:13→22:09)
[2021-08-16] MEDS: ASPIRIN 325 MG TAB PO SCH (09:13)
[2021-08-16] MEDS: FOLIC ACID 1 MG TAB PO SCH (09:13)
[2021-08-16] MEDS: TICAGRELOR 90 MG TAB PO SCH ×2 (09:13→22:09)
[2021-08-16] MEDS: LOSARTAN 50 MG TAB PO SCH ×2 (09:13→22:08)
[2021-08-16] MEDS: cycloSPORINE 0.05% OPHTH 0.4 ML DROPERETTE BOTH EYES SCH ×2 (09:16→22:09)
--- NOTE | 2021-08-16 09:18 | P.PN ---
Subjective Progress Note Date: 08/16/21 Patient seen and examined. Does not recollect meeting and conversation had with her and her son regarding her carotid artery stenosis and need for intervention. She continues to have right upper extremity weakness, slight improvement of her word finding difficulties. Objective - Vital Signs Vital signs: Vital Signs Temp 99.7 F H 08/16/21 03:16 Pulse 71 08/16/21 03:16 Resp 20 08/16/21 03:16 BP 140/62 08/16/21 03:16 Pulse Ox 96 08/16/21 03:16 FiO2 Intake & Output 08/15/21 08/16/21 08/16/21 18:59 06:59 18:59 Intake Total 476 Output Total 950 600 Balance -474 -600 Intake: Oral 476 Output: Urine 950 600 Other: Voiding Method Diaper Diaper External Catheter External Catheter # Voids 1 # Bowel Movements 1 - Exam Gen. is a pleasant cooperative elderly female in no acute distress. HEENT is normal cephalic, atraumatic, extraocular motion intact. Heart appears regular. Lungs are clear. Abdomen is soft. Extremity show no clubbing, cyanosis or edema. Significantly weak right upper extremity. Able to move fingers 1 through 3 - Labs CBC & Chem 7: 08/16/21 05:51 08/16/21 05:51 Labs: Abnormal Lab Results - Last 24 Hours (Table) 08/15/21 08/15/21 08/15/21 Range/Units 07:55 11:55 16:38 RBC (3.80-5.40) m/uL Hgb (11.4-16.0) gm/dL Hct (34.0-46.0) % MCV (80.0-100.0) fL RDW (11.5-15.5) % Neutrophils # (1.3-7.7) k/uL Sodium (137-145) mmol/L Chloride (98-107) mmol/L Creatinine (0.52-1.04) mg/dL Glucose (74-99) mg/dL POC Glucose (mg/dL) 240 H 156 H (70-110) mg/dL Calcium (8.4-10.2) mg/dL Total Protein (6.3-8.2) g/dL Albumin (3.5-5.0) g/dL Procalcitonin 0.13 H (0.02-0.09) ng/mL 08/15/21 08/16/21 08/16/21 Range/Units 20:17 05:51 05:51 RBC 2.94 L (3.80-5.40) m/uL Hgb 10.1 L (11.4-16.0) gm/dL Hct 30.6 L (34.0-46.0) % MCV 104.2 H (80.0-100.0) fL RDW 16.1 H (11.5-15.5) % Neutrophils # 8.4 H (1.3-7.7) k/uL Sodium 130 L (137-145) mmol/L Chloride 95 L (98-107) mmol/L Creatinine 0.49 L (0.52-1.04) mg/dL Glucose 125 H (74-99) mg/dL POC Glucose (mg/dL) 119 H (70-110) mg/dL Calcium 7.7 L (8.4-10.2) mg/dL Total Protein 5.8 L (6.3-8.2) g/dL Albumin 2.9 L (3.5-5.0) g/dL Procalcitonin (0.02-0.09) ng/mL 08/16/21 Range/Units 05:51 RBC (3.80-5.40) m/uL Hgb (11.4-16.0) gm/dL Hct (34.0-46.0) % MCV (80.0-100.0) fL RDW (11.5-15.5) % Neutrophils # (1.3-7.7) k/uL Sodium (137-145) mmol/L Chloride (98-107) mmol/L Creatinine (0.52-1.04) mg/dL Glucose (74-99) mg/dL POC Glucose (mg/dL) 129 H (70-110) mg/dL Calcium (8.4-10.2) mg/dL Total Protein (6.3-8.2) g/dL Albumin (3.5-5.0) g/dL Procalcitonin (0.02-0.09) ng/mL Microbiology - Last 24 Hours (Table) 08/14/21 20:40 Blood Culture - Preliminary Blood No Growth after 24 hours Assessment and Plan Assessment: Symptomatic left ICA stenosis Right ICA stenosis, asymptomatic Plan: Discussion had with the patient in the nurse regarding plans, I do believe she would benefit from rehabilitation and strengthening as well as cardiac evaluation prior to intervention. This be done as an outpatient. If cardiology has concerns and would like to do further workup and evaluation, that would take precedent.
[2021-08-16 11:44] LABS: Glucose,Whole Blood 145 mg/dL (70-110)
[2021-08-16] MEDS: ACETAMINOPHEN TAB 500 MG TAB PO PRN (12:26)
[2021-08-16] MEDS ORDERED: METHOTREXATE SODIUM (PF) 25 MG/ML 2 ML VIAL SQ SCH (12:44)
--- NOTE | 2021-08-16 13:18 | P.PN ---
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 She has a past medical history of hypertension, h yperlipidemia, questionable history of diabetes and history of rheumatoid arthritis. We have been asked to see the patient for questionable A flutter. She resented to the emergency department with a 2-3 day history of expressive aphasia and some questionable right-sided weakness and her son has noted weakness in the left arm and patient is unable to raise the left arm. She also had speech difficulties during admission. EKG on admission revealed sinus mechanism with PACs. No evidence of arrhythmia on telemetry. Neurology is on consult to see patient. DIAGNOSTICS * Chest x-ray showed a very limited exam with cardiomegaly and diffuse interstitial vascular density possible CHF with pulmonary vascular congestion, patchy left basilar atelectasis versus developing infiltrate, mild superior en dplate deformity of the mid thoracic vertebral body which is new from 2015, Age indeterminate. * CT brain showed mild atrophy, no acute intracranial abnormality seen, moderate fluent burden of small vessel ischemic disease. * CT angiography had a neck showed mild proximal right ICA stenosis, severe approximately 70% proximal left ICA stenosis at the upper left carotid bulb, CAD and pulmonary arterial hypertension, moderate atherosclerotic calcification throughout the bilateral carotid siphons contributing to variable mild intracranial ICA narrowing throughout, more focal mild to moderate stenosis of supraclinoid left ICA, no large vessel intracranial arterial occlusion or significant stenosis. * Echocardiogram revealed EF 55-60% with mild to moderate MR and mild aortic stenosis and negative agitated saline bubble study for [id number] shunt. * MRI showed scattered acute/subacute microinfarcts involving the left MCA territory including the left frontal and parietal lobes with nonspecific white matter changes, likely secondary to small vessel ischemic disease. 08/16/2021 Patient seen and examined at bedside, no acute distress.Feeling well. No complaints. Right upper extremity continues to be quite weak. She was seen by vascular and it appears the plan is for open surgical intervention at some point in the next few weeks. She's has had no evidence of arrhythmia on telemetry. PHYSICAL EXAM: VITAL SIGNS: Reviewed. GENERAL: Well-developed in no acute distress. HEENT: Neck supple. No JVD LUNGS: Respirations even and unlabored. Lungs essentially clear to auscultation bilaterally. HEART: Regular rate and rhythm. S1 and S2 heard. ABDOMEN: Soft. Nondistended. Nontender. EXTREMITIES: Normal range of motion. No clubbing or cyanosis. Peripheral pulses intact. No lower extremity edema NEUROLOGIC: Awake and alert. Oriented x 3. ASSESSMENT CVA Left ICA stenosis of at least 70% her CTA, vascular surgery is following, planning for possible open surgical intervention History of a TIA in June 2021 Questionable atrial flutter while at [facility] in June, records currently not available Hypertension Hyperlipidemia Diabetes Mild aortic stenosis Negative bubble study on echo PLAN From cardiology 's perspective, continue Losartan, aspirin, statin, brilinta. Continue to monitor for arrhythmia. Records obtained from [facility], Echocardiogram with similar findings, EKG read as sinus rhythm with PACs by cardiology. We will continue to follow the patient and provide further recommendations accordingly. On discharge patient to follow up outpatient with Dr. Luke. Hema MPI to be done in the office as an outpatient and follow-up for preoperative clearance next week INTERNATIONAL MARKETING SPECIALIST note has been reviewed, I agree with a documented findings and plan of care. Patient was seen and examined. Objective - Vital Signs Vital signs: Vital Signs Temp 99.1 F 08/14/21 11:26 Pulse 84 08/14/21 11:26 Resp 16 08/14/21 11:26 BP 162/82 08/14/21 11:26 Pulse Ox 94 L 08/14/21 11:26 FiO2 Intake & Output 08/13/21 08/14/21 08/14/21 18:59 06:59 18:59 Intake Total 818 618 Output Total 550 1750 700 Balance 268 -1750 -82 Intake: IV 700 Sodium Chloride 0.9% 1, 700 000 ml @ 100 mls/hr IV . Q10H HARJIT Rx#:[id number] Oral 118 618 Output: Urine 550 1750 700 Other: Voiding Method Diaper Diaper Diaper External Catheter External Catheter External Catheter # Bowel Movements 1 - Labs CBC & Chem 7: 08/16/21 05:51 08/16/21 05:51 Labs: Abnormal Lab Results - Last 24 Hours (Table) 08/13/21 08/14/21 08/14/21 Range/Units 20:27 06:20 07:32 RBC 3.31 L (3.80-5.40) m/uL Hgb 11.3 L (11.4-16.0) gm/dL MCV 104.2 H (80.0-100.0) fL RDW 16.5 H (11.5-15.5) % Neutrophils # 8.5 H (1.3-7.7) k/uL Lymphocytes # 0.8 L (1.0-4.8) k/uL Sodium (137-145) mmol/L Potassium (3.5-5.1) mmol/L Chloride (98-107) mmol/L BUN (7-17) mg/dL Creatinine (0.52-1.04) mg/dL Glucose (74-99) mg/dL POC Glucose (mg/dL) 157 H 175 H (70-110) mg/dL Calcium (8.4-10.2) mg/dL 08/14/21 08/14/21 08/14/21 Range/Units 07:32 11:44 16:53 RBC (3.80-5.40) m/uL Hgb (11.4-16.0) gm/dL MCV (80.0-100.0) fL RDW (11.5-15.5) % Neutrophils # (1.3-7.7) k/uL Lymphocytes # (1.0-4.8) k/uL Sodium 130 L (137-145) mmol/L Potassium 3.2 L (3.5-5.1) mmol/L Chloride 96 L (98-107) mmol/L BUN 4 L (7-17) mg/dL Creatinine 0.40 L (0.52-1.04) mg/dL Glucose 164 H (74-99) mg/dL POC Glucose (mg/dL) 165 H 201 H (70-110) mg/dL Calcium 8.2 L (8.4-10.2) mg/dL
[2021-08-16 16:20] LABS: Glucose,Whole Blood 163 mg/dL (70-110)
--- NOTE | 2021-08-16 17:01 | P.PN ---
Subjective Progress Note Date: 08/16/21 The patient is doing about the same. Denies of any new neurological issues. Objective - Vital Signs Vital signs: Vital Signs Temp 98.7 F 08/16/21 15:44 Pulse 90 08/16/21 15:44 Resp 16 08/16/21 15:44 BP 123/60 08/16/21 15:44 Pulse Ox 95 08/16/21 15:44 FiO2 Intake & Output 08/15/21 08/16/21 08/16/21 18:59 06:59 18:59 Intake Total 476 240 Output Total 495 320 5951 Balance -906 -600 -468 Intake: Oral 476 240 Output: Urine 386 418 0683 Other: Voiding Method Diaper Diaper Diaper External Catheter External Catheter External Catheter # Voids 1 # Bowel Movements 1 1 - Exam GENERAL: The patient is lying in bed and is not in acute distress. NEUROLOGICAL: Higher mental function: The patient is awake, alert, oriented to self, place and time. Patient is following commands. Has Mild to moderate expressive aphasia (some word finding difficulty and at time difficulty repeating sentences). No neglect. Cranial nerves: The pupils are round, equal and reactive to light and accommodation. Visual nuñez are full to confrontation throughout. Extraocular movement is intact no nystagmus is noted. Facial sensation is normal to touch throughout. The facial strength is normal throughout. Hearing is severely decreased bilaterally to hand rub (currently does not have her hearing aids). Tongue is midline and moved [id number] without any difficulty. No dysarthria is noted. Shoulder shrug is normal bilaterally. Motor: The strength is right upper extremity: Forearm flexion/extension is 3, right hand cigar inspector is 3-4 while proximal is limited because of pain. Otherwise 5 over 5 throughout. Normal tone and bulk. Cerebellum: Normal finger to nose bilaterally. Sensation: Sensation is normal to touch throughout. Reflexes (right/left): 3+ over the left upper, 2+ over the right upper. 0 (bilateral knee replacement). Plantars could not assess because of her cooperation. Some other workup during this hospital visit consisted of: Lipid panel is triglyceride of 78, cholesterol 278, LDLs 88 and HDL 73. TSH: 1.[address] of the head is reported as mild atrophy. No acute intracranial abnormality seen. Moderate confluent burden of small vessel ischemic disease. I personally reviewed the CT of the head and I agree with the report. CT angiography of the neck is reported as mild proximal with her percent proximal right ICA stenosis at. Severe approximately 70% proximal left ICA stenosis at the upper left carotid bulb. Coronary artery disease and pulmonary arterial hypertension. Given interstitial changes throughout the long, correlate to exclude pulmonary vascular congestion/congestive heart failure CT angiography of the head is reported as moderate atherosclerotic as effusion throughout the bilateral carotid siphons contributing to variable mild intracranial ICA narrowing throughout. More focal mild to moderate stenosis of the supraclinoid left ICA. No large vessel intracranial artery occlusion or significant stenosis. No aneurysm change. Persistent origin the right ENVIRONMENTAL MARKETING REPRESENTATIVE. MR the brain is reported as scattered acute/subacute microinfarcts involving the left MCA territory including the left frontal and parietal lobe. I personally reviewed the MRI and I feel it's mostly left frontal some parietal and that the border of occipital temporal region. Carotid duplex is reported as 50-69% stenosis of bilateral carotid bifurcation by peak systolic velocity. 2-D echo was reported as normal left ventricle size and systolic function. Mild to moderate mitral regurgitation. Mild aortic stenosis. Left atrium is severely increased left atrial volume intra-atrial septum aneurysm - Labs CBC & Chem 7: 08/16/21 05:51 08/16/21 05:51 Labs: Abnormal Lab Results - Last 24 Hours (Table) 08/15/21 08/15/21 08/16/21 Range/Units 07:55 20:17 05:51 RBC 2.94 L (3.80-5.40) m/uL Hgb 10.1 L (11.4-16.0) gm/dL Hct 30.6 L (34.0-46.0) % MCV 104.2 H (80.0-100.0) fL RDW 16.1 H (11.5-15.5) % Neutrophils # 8.4 H (1.3-7.7) k/uL Sodium (137-145) mmol/L Chloride (98-107) mmol/L Creatinine (0.52-1.04) mg/dL Glucose (74-99) mg/dL POC Glucose (mg/dL) 119 H (70-110) mg/dL Calcium (8.4-10.2) mg/dL Total Protein (6.3-8.2) g/dL Albumin (3.5-5.0) g/dL Procalcitonin 0.13 H (0.02-0.09) ng/mL 08/16/21 08/16/21 08/16/21 Range/Units 05:51 05:51 11:43 RBC (3.80-5.40) m/uL Hgb (11.4-16.0) gm/dL Hct (34.0-46.0) % MCV (80.0-100.0) fL RDW (11.5-15.5) % Neutrophils # (1.3-7.7) k/uL Sodium 130 L (137-145) mmol/L Chloride 95 L (98-107) mmol/L Creatinine 0.49 L (0.52-1.04) mg/dL Glucose 125 H (74-99) mg/dL POC Glucose (mg/dL) 129 H 145 H (70-110) mg/dL Calcium 7.7 L (8.4-10.2) mg/dL Total Protein 5.8 L (6.3-8.2) g/dL Albumin 2.9 L (3.5-5.0) g/dL Procalcitonin (0.02-0.09) ng/mL 08/16/21 Range/Units 16:18 RBC (3.80-5.40) m/uL Hgb (11.4-16.0) gm/dL Hct (34.0-46.0) % MCV (80.0-100.0) fL RDW (11.5-15.5) % Neutrophils # (1.3-7.7) k/uL Sodium (137-145) mmol/L Chloride (98-107) mmol/L Creatinine (0.52-1.04) mg/dL Glucose (74-99) mg/dL POC Glucose (mg/dL) 163 H (70-110) mg/dL Calcium (8.4-10.2) mg/dL Total Protein (6.3-8.2) g/dL Albumin (3.5-5.0) g/dL Procalcitonin (0.02-0.09) ng/mL Microbiology - Last 24 Hours (Table) 08/14/21 20:40 Blood Culture - Preliminary Blood No Growth after 24 hours Assessment and Plan Assessment: Acute to subacute ischemic stroke (symptoms of Expressive aphasia and right upper extremity weakness. MRI Brain: I felt stroke over left fronto/parietal and temporal/occipital region). I feel stroke likely due to symptomatic left ICA. Symptomatic Left ICA stenosis at least 70% stenosis per CTA Has similar episode in June 2021 and appeared TIA Reported questionable atrial flutter in June 2021 (notified at outside facility--[facility]) Very hard of hearing Plan: * Continue ASA 325mg daily (was on 81mg) and stopped Plavix since he failed all start the patient on Brilinta 90 mg 1 tablet 1 tablet twice a day . Continue Lipitor 80 mg qhs for secondary stroke prophylaxis and that would help with stablize plaque over the left ICA. * Vascular surgery team is consulted for the left ICA stenosis since it symptomatic. They agree she is surgical candidate as outpatient. * Consulted cardiology team for ?reported atrial flutter in June 2021 (over at [facility]). So far unsuccessful in obtaining records from outpatient facility. They recommended Lexiscan MPI as outpatient. Recommend event monitor for 30 days and to be coordinated by cardiology. * 2-D echo was reported as normal left ventricle size and systolic function. Mild to moderate mitral regurgitation. Mild aortic stenosis. Left atrium is severely increased left atrial volume intra-atrial septum aneurysm. * Every 4 hours neuro checks * Continue cardiac monitoring * PT, OT and SPIKE MAKER are consulted * We'll defer the rest of the medical management to the primary team * For DVT prophylaxis Continue subcu heparin 5000 units every 12 hours * We'll defer the rest of the medical management to primary team. * Consulted Dr. Pringle for inpatient rehab which I feel patient will benefit from. * Recommend patient to follow-up with a neurologist within 1-2 weeks as outpatient. The plan is discussed with patient and her nurse. No additional work-up needed from neurological perspective. And patient is clear for discharge and hopefully to inpatient rehab. Jose Lobato M.D. Neuro-hospitalist Time with Patient: Less than 30
--- NOTE | 2021-08-16 17:02 | P.PN ---
Subjective Progress Note Date: 08/16/21 Amisha Benitez, is an 81-year-old female who presented to [facility] emergency room with a chief complaint of difficulty with her speech for the last 2 days, history was taken in the emergency room from her son who noticed that in the last 2 days patient was having difficulty finding words and expressing herself, he stated that at the facility where she lives she was noticed to have elevated blood pressure, patient was also complaining of right upper extremity weakness, she was brought to emergency room for further evaluation and treatment. She was evaluated in the emergency room vital examination on presentation revealed a temperature of 98.3 heart rate 81 respiration 20 blood pressure 140/73 pulse ox 98% on room air Laboratory data revealed a white blood count of 8.6 hemoglobin 10.9 platelet count 379 sodium 137 potassium 3.4 chloride 97 CO2 34 BUN 12 creatinine 0.51 Testing in the emergency room revealed EKG done in the emergency room revealed sinus rhythm with occasional supraventricular premature complexes and borderline left axis deviation, computed tomography scan of the brain without contrast done in the emergency room revealed mild atrophy no acute intracranial abnormality seen and moderate confluent burden of small vessel ischemic disease, chest x-ray done in the emergency room revealed possible congestive heart failure with pulmonary vascular congestion and possible thoracic vertebral end plate deformity. Patient was admitted to medical floor for further evaluation and treatment history of hypertension, history of hyperlipidemia , history of hearing difficulty, history of diabetes mellitus, history of chronic pain maintained on tramadol, history of hypothyroidism, and history of rheumatoid arthritis On 08/14/2021 patient was seen and examined on the telemetry floor she is alert and oriented 3 in no apparent distress she is still having difficulty with her speech she reports improvement in her right upper extremity weakness otherwise she denies any complaints there is no fever or chills no headache or dizziness no chest pain no shortness of breath no cough no nausea or vomiting no abdominal pain no diarrhea no blood in the stools no burning with urination no frequency or urgency and no hematuria, physical therapy and occupational therapy and speech therapy consult, vascular surgery consult regarding possible carotid endarterectomy On 08/15/2021 patient was seen and examined on the telemetry floor she is alert and oriented 3 in no apparent distress, she was having episodes of elevated temperature the night, T-max was 100.4, currently her temperature is 99.6, heart rate 86 respiration 18 blood pressure 146/77 pulse ox 96% on room air, white blood count is more elevated today at 11.4 as compared to 9.9 yesterday, there is no clear clinical or laboratory evidence of infection, urine analysis chest x-ray and blood culture were ordered, patient denies any diarrhea or any open ulcers on her skin, at this time she is not on any antibiotics will continue to monitor closely, consult for infectious disease was initiated. On 08/16/2021 patient was seen and examined on the telemetry floor she is alert and oriented 3 in no apparent distress she continues to have episodes of low- grade fever, otherwise she denies any complaints that are no chills no headache or dizziness no chest pain no shortness of breath no cough no nausea or vomiting no abdominal pain no diarrhea no blood in the stools no burning with urination no frequency or urgency and no hematuria. Pro-calcitonin was mildly elevated chest x-ray revealed basilar haziness she was started on IV Rocephin will continue to monitor closely infectious disease consultation was requested Objective - Vital Signs Vital signs: Vital Signs Temp 98.7 F 08/16/21 09:10 Pulse 86 08/16/21 09:10 Resp 18 08/16/21 09:10 BP 146/62 08/16/21 09:10 Pulse Ox 97 08/16/21 09:10 FiO2 Intake & Output 08/15/21 08/16/21 08/16/21 18:59 06:59 18:59 Intake Total 476 120 Output Total 950 600 Balance -474 -600 120 Intake: Oral 476 120 Output: Urine 950 600 Other: Voiding Method Diaper Diaper External Catheter External Catheter # Voids 1 # Bowel Movements 1 - Exam In general patient is alert and oriented x 3 in no distress HEENT head normocephalic and atraumatic Neck is supple no JVD no goiter no lymphadenopathy no carotid bruit Chest examination is clear to auscultation no crackles no wheezing Cardiac exam reveals regular heart sounds S1 and S2 no gallops no murmurs Abdomen is soft nontender no organomegaly with normal bowel sounds Extremity exam reveals no edema no cyanosis or clubbing Neurological examination reveals mild difficulty with her speech, improved since yesterday per her son at bedside, and minimal right upper extremity weakness as compared to the left otherwise no focal gross deficits - Labs CBC & Chem 7: 08/16/21 05:51 08/16/21 05:51 Labs: Abnormal Lab Results - Last 24 Hours (Table) 08/15/21 08/15/21 08/15/21 Range/Units 07:55 11:55 16:38 RBC (3.80-5.40) m/uL Hgb (11.4-16.0) gm/dL Hct (34.0-46.0) % MCV (80.0-100.0) fL RDW (11.5-15.5) % Neutrophils # (1.3-7.7) k/uL Sodium (137-145) mmol/L Chloride (98-107) mmol/L Creatinine (0.52-1.04) mg/dL Glucose (74-99) mg/dL POC Glucose (mg/dL) 240 H 156 H (70-110) mg/dL Calcium (8.4-10.2) mg/dL Total Protein (6.3-8.2) g/dL Albumin (3.5-5.0) g/dL Procalcitonin 0.13 H (0.02-0.09) ng/mL 08/15/21 08/16/21 08/16/21 Range/Units 20:17 05:51 05:51 RBC 2.94 L (3.80-5.40) m/uL Hgb 10.1 L (11.4-16.0) gm/dL Hct 30.6 L (34.0-46.0) % MCV 104.2 H (80.0-100.0) fL RDW 16.1 H (11.5-15.5) % Neutrophils # 8.4 H (1.3-7.7) k/uL Sodium 130 L (137-145) mmol/L Chloride 95 L (98-107) mmol/L Creatinine 0.49 L (0.52-1.04) mg/dL Glucose 125 H (74-99) mg/dL POC Glucose (mg/dL) 119 H (70-110) mg/dL Calcium 7.7 L (8.4-10.2) mg/dL Total Protein 5.8 L (6.3-8.2) g/dL Albumin 2.9 L (3.5-5.0) g/dL Procalcitonin (0.02-0.09) ng/mL 08/16/21 Range/Units 05:51 RBC (3.80-5.40) m/uL Hgb (11.4-16.0) gm/dL Hct (34.0-46.0) % MCV (80.0-100.0) fL RDW (11.5-15.5) % Neutrophils # (1.3-7.7) k/uL Sodium (137-145) mmol/L Chloride (98-107) mmol/L Creatinine (0.52-1.04) mg/dL Glucose (74-99) mg/dL POC Glucose (mg/dL) 129 H (70-110) mg/dL Calcium (8.4-10.2) mg/dL Total Protein (6.3-8.2) g/dL Albumin (3.5-5.0) g/dL Procalcitonin (0.02-0.09) ng/mL Microbiology - Last 24 Hours (Table) 08/14/21 20:40 Blood Culture - Preliminary Blood No Growth after 24 hours Assessment and Plan Plan: Possible Acute to subacute ischemic stroke, with expressive aphasia and right upper extremity weakness Evidence of left internal carotid artery stenosis on CT angiogram of the neck Underlying history of hypertension Underlying history of hyperlipidemia Underlying history of hypothyroidism Underlying history of mex-kcdpeiq-vedizpviw diabetes mellitus Underlying history of rheumatoid arthritis Underlying history of chronic pain At this time patient is admitted to telemetry floor Neurology consultation and cardiology consultation requested Echocardiogram ordered She is maintained on aspirin and She was started on Lipitor 80 mg daily For DVT prophylaxis patient is on subcu heparin For GI prophylaxis Will add Protonix Physical therapy occupational therapy and speech therapy consult requested Will follow closely
[2021-08-16 20:36] LABS: Glucose,Whole Blood 165 mg/dL (70-110)
[2021-08-16] MEDS: ATORVASTATIN 80 MG TAB PO SCH (22:08)
[2021-08-17] MEDS: SODIUM CHLORIDE 0.9% 1,000 ML IV SCH ×3 (00:03→18:02)
[2021-08-17 06:25] LABS: Glucose,Whole Blood 143 mg/dL (70-110)
[2021-08-17] MEDS: PANTOPRAZOLE 40 MG TABLET PO SCH (06:36)
[2021-08-17] MEDS: INSULIN ASPART (NovoLOG) 100 UNIT/ML VIAL SQ SCH ×4 (06:37→20:34)
[2021-08-17] MEDS: LEVOTHYROXINE 50 MCG TAB PO SCH (06:37)
[2021-08-17 08:37] LABS: HCT 29.2 % (34.0-46.0); HGB 9.3 gm/dL (11.4-16.0); MCH 32.8 pg (25.0-35.0); MCV 102.7 fL (80.0-100.0); Macrocytosis Moderate; Mean Platelet Volume 7.7; Platelet Count 417 k/uL (150-450); RBC 2.84 m/uL (3.80-5.40); RDW 15.9 % (11.5-15.5); WBC 10.2 k/uL (3.8-10.6)
[2021-08-17 09:16] LABS: Eosinophils # (M) 0.41 k/uL (0-0.7); Lymphocytes # (M) 0.92 k/uL (1.0-4.8); Monocytes # (M) 1.73 k/uL (0-1.0); Neutrophils # (M) 7.14 k/uL (1.3-7.7); Neutrophils % (M) 70 %; Nucleated Red Blood Cells 0 /100 WBC (0-0); Polychromasia Present; Total Cells Counted 100
[2021-08-17] MEDS: HEPARIN SODIUM,PORCINE/PF 5,000 UNIT/0.5 ML SYRINGE SQ SCH ×2 (09:42→20:33)
[2021-08-17] MEDS: NYSTATIN 100,000UNIT/GM CREAM 30 GM TUBE TOPICAL SCH ×2 (09:43→20:34)
[2021-08-17] MEDS: FOLIC ACID 1 MG TAB PO SCH (09:43)
[2021-08-17] MEDS: TICAGRELOR 90 MG TAB PO SCH ×2 (09:43→20:34)
[2021-08-17] MEDS: FUROSEMIDE 40 MG TAB PO SCH (09:43)
[2021-08-17] MEDS: ASPIRIN 325 MG TAB PO SCH (09:43)
[2021-08-17] MEDS: cycloSPORINE 0.05% OPHTH 0.4 ML DROPERETTE BOTH EYES SCH ×2 (09:47→20:33)
[2021-08-17] MEDS: LOSARTAN 50 MG TAB PO SCH ×2 (09:48→20:34)
[2021-08-17 10:13] LABS: ALT 14 U/L (4-34); AST 32 U/L (14-36); African American GFR (CKD) >90 (>60 ml/min/1.73 sqM); Albumin 2.8 g/dL (3.5-5.0); Alkaline Phosphatase 74 U/L (38-126); Anion Gap 7 mmol/L; Blood Urea Nitrogen 10 mg/dL (7-17); Calcium 7.7 mg/dL (8.4-10.2); Carbon Dioxide 27 mmol/L (22-30); Chloride 97 mmol/L (98-107); Glucose 140 mg/dL (74-99); Non-African American GFR(CKD) >90 (>60 ml/min/1.73 sqM); Potassium 3.2 mmol/L (3.5-5.1); Sodium 131 mmol/L (137-145); Total Bilirubin 0.5 mg/dL (0.2-1.3); Total Protein 5.6 g/dL (6.3-8.2)
[2021-08-17 11:55] LABS: Glucose,Whole Blood 126 mg/dL (70-110)
--- NOTE | 2021-08-17 12:39 | P.PN ---
Subjective Progress Note Date: 08/16/21 Principal diagnosis: Fever Patient is 81 yr old female presenting to the hospital for aphasia concerning for a CVA did have a abnormal MRI with evidence of acute/subacute microinfarcts involving the left MCA patient subsequently did have a low-grade fever abnormal x-ray concerning for possible pneumonitis. On today's evaluation that is 08/16/2021 the patient did have a low-grade fever of 99.8 this afternoon, patient is breathing comfortably room air denies any chest pain or shortness with occasional cough no abdominal pain no diarrhea Objective - Vital Signs Vital signs: Vital Signs Temp 98.7 F 08/16/21 15:44 Pulse 90 08/16/21 15:44 Resp 16 08/16/21 15:44 BP 123/60 08/16/21 15:44 Pulse Ox 95 08/16/21 15:44 FiO2 Intake & Output 08/15/21 08/16/21 08/16/21 18:59 06:59 18:59 Intake Total 476 240 Output Total 578 684 7396 Balance -659 -988 -960 Intake: Oral 476 240 Output: Urine 664 417 9706 Other: Voiding Method Diaper Diaper Diaper External Catheter External Catheter External Catheter # Voids 1 # Bowel Movements 1 1 - Exam GENERAL DESCRIPTION: Elderly female lying in bed, no distress. No tachypnea or accessory muscle of respiration use. LUNGS: Unlabored breathing. Decreased breath sound the base HEART: S1, S2, regular rate and rhythm. No loud murmur ABDOMEN: Soft, no tenderness , guarding or rigidity, no organomegaly EXTREMITIES: No edema of feet. - Labs CBC & Chem 7: 08/17/21 07:46 08/17/21 09:36 Labs: Abnormal Lab Results - Last 24 Hours (Table) 08/15/21 08/15/21 08/16/21 Range/Units 07:55 20:17 05:51 RBC 2.94 L (3.80-5.40) m/uL Hgb 10.1 L (11.4-16.0) gm/dL Hct 30.6 L (34.0-46.0) % MCV 104.2 H (80.0-100.0) fL RDW 16.1 H (11.5-15.5) % Neutrophils # 8.4 H (1.3-7.7) k/uL Sodium (137-145) mmol/L Chloride (98-107) mmol/L Creatinine (0.52-1.04) mg/dL Glucose (74-99) mg/dL POC Glucose (mg/dL) 119 H (70-110) mg/dL Calcium (8.4-10.2) mg/dL Total Protein (6.3-8.2) g/dL Albumin (3.5-5.0) g/dL Procalcitonin 0.13 H (0.02-0.09) ng/mL 08/16/21 08/16/21 08/16/21 Range/Units 05:51 05:51 11:43 RBC (3.80-5.40) m/uL Hgb (11.4-16.0) gm/dL Hct (34.0-46.0) % MCV (80.0-100.0) fL RDW (11.5-15.5) % Neutrophils # (1.3-7.7) k/uL Sodium 130 L (137-145) mmol/L Chloride 95 L (98-107) mmol/L Creatinine 0.49 L (0.52-1.04) mg/dL Glucose 125 H (74-99) mg/dL POC Glucose (mg/dL) 129 H 145 H (70-110) mg/dL Calcium 7.7 L (8.4-10.2) mg/dL Total Protein 5.8 L (6.3-8.2) g/dL Albumin 2.9 L (3.5-5.0) g/dL Procalcitonin (0.02-0.09) ng/mL 08/16/21 Range/Units 16:18 RBC (3.80-5.40) m/uL Hgb (11.4-16.0) gm/dL Hct (34.0-46.0) % MCV (80.0-100.0) fL RDW (11.5-15.5) % Neutrophils # (1.3-7.7) k/uL Sodium (137-145) mmol/L Chloride (98-107) mmol/L Creatinine (0.52-1.04) mg/dL Glucose (74-99) mg/dL POC Glucose (mg/dL) 163 H (70-110) mg/dL Calcium (8.4-10.2) mg/dL Total Protein (6.3-8.2) g/dL Albumin (3.5-5.0) g/dL Procalcitonin (0.02-0.09) ng/mL Microbiology - Last 24 Hours (Table) 08/14/21 20:40 Blood Culture - Preliminary Blood No Growth after 24 hours Assessment and Plan (1) Fever Current Visit: Yes Status: Acute Code(s): R50.9 - FEVER, UNSPECIFIED SNOMED Code(s): 117436194 Plan: 1patient with a low-grade fever elevated white count in this patient presented to hospital expressive aphasia has been diagnosed with a CVA in this patient currently with no obvious physical finding suspicious for the source of infection abdominal soft on examination no evidence of any cellulitis or joint swelling new has been negative chest x-ray showed some atelectasis left lung base and a question of pneumonia. 2 Patient did have mild elevated procalcitonin concerning for possible pneumonia continue with Rocephin and will monitor culture closely Time with Patient: Less than 30
[2021-08-17] MEDS: POTASSIUM CHLORIDE ER 20 MEQ TAB.ER PO SCH ×2 (13:27→17:04)
--- NOTE | 2021-08-17 14:07 | P.PN ---
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 She has a past medical history of hypertension, h yperlipidemia, questionable history of diabetes and history of rheumatoid arthritis. We have been asked to see the patient for questionable A flutter. She resented to the emergency department with a 2-3 day history of expressive aphasia and some questionable right-sided weakness and her son has noted weakness in the left arm and patient is unable to raise the left arm. She also had speech difficulties during admission. EKG on admission revealed sinus mechanism with PACs. No evidence of arrhythmia on telemetry. Neurology is on consult to see patient. DIAGNOSTICS * Chest x-ray showed a very limited exam with cardiomegaly and diffuse interstitial vascular density possible CHF with pulmonary vascular congestion, patchy left basilar atelectasis versus developing infiltrate, mild superior en dplate deformity of the mid thoracic vertebral body which is new from 2015, Age indeterminate. * CT brain showed mild atrophy, no acute intracranial abnormality seen, moderate fluent burden of small vessel ischemic disease. * CT angiography had a neck showed mild proximal right ICA stenosis, severe approximately 70% proximal left ICA stenosis at the upper left carotid bulb, CAD and pulmonary arterial hypertension, moderate atherosclerotic calcification throughout the bilateral carotid siphons contributing to variable mild intracranial ICA narrowing throughout, more focal mild to moderate stenosis of supraclinoid left ICA, no large vessel intracranial arterial occlusion or significant stenosis. * Echocardiogram revealed EF 55-60% with mild to moderate MR and mild aortic stenosis and negative agitated saline bubble study for [id number] shunt. * MRI showed scattered acute/subacute microinfarcts involving the left MCA territory including the left frontal and parietal lobes with nonspecific white matter changes, likely secondary to small vessel ischemic disease. 08/17/2021 Patient seen and examined at bedside, no acute distress. Feeling well. No complaints. Right upper extremity continues to be quite weak. She was seen by vascular and it appears the plan is for open surgical intervention at some point in the next few weeks. She's has had no evidence of arrhythmia on telemetry, continues to maintain sinus mechanism. Records obtained from [facility], Echocardiogram with similar findings, EKG read as sinus rhythm with PACs by cardiology. PHYSICAL EXAM: VITAL SIGNS: Reviewed. GENERAL: Well-developed in no acute distress. HEENT: Neck supple. No JVD LUNGS: Respirations even and unlabored. Lungs essentially clear to auscultation bilaterally. HEART: Regular rate and rhythm. S1 and S2 heard. ABDOMEN: Soft. Nondistended. Nontender. EXTREMITIES: Normal range of motion. No clubbing or cyanosis. Peripheral pulses intact. No lower extremity edema NEUROLOGIC: Awake and alert. Oriented x 3. ASSESSMENT CVA Left ICA stenosis of at least 70% her CTA, vascular surgery is following, planning for possible open surgical intervention History of a TIA in June 2021 Questionable atrial flutter while at [facility] in June, records currently not available Hypertension Hyperlipidemia Diabetes Mild aortic stenosis Negative bubble study on echo PLAN From cardiology 's perspective, continue Losartan, aspirin, statin, brilinta. Continue to monitor for arrhythmia. Records obtained from [facility], Echocardiogram with similar findings, EKG read and reviewed, patient in sinus rhythm with PACs No evidence of atrial fibrillation/flutter here or at [facility] On discharge patient to follow up outpatient with Dr. Luke. Hema MPI to be done in the office as an outpatient and follow-up for preoperative clearance next week We will sign off at this time. Please reach out with any further questions or concerns. INSULATION CUPOLA CHARGER note has been reviewed, I agree with a documented findings and plan of care. Patient was seen and examined. Objective - Vital Signs Vital signs: Vital Signs Temp 98.2 F 08/17/21 08:00 Pulse 86 08/17/21 08:00 Resp 18 08/17/21 08:00 BP 115/64 08/17/21 08:00 Pulse Ox 95 08/17/21 08:00 FiO2 Intake & Output 08/16/21 08/17/21 08/17/21 18:59 06:59 18:59 Intake Total 360 Output Total 1200 250 Balance -840 -250 Intake: Oral 360 Output: Urine 1200 250 Other: Voiding Method Diaper Diaper Diaper External Catheter External Catheter External Catheter # Voids 1 # Bowel Movements 1 1 - Labs CBC & Chem 7: 08/17/21 07:46 08/17/21 09:36 Labs: Abnormal Lab Results - Last 24 Hours (Table) 08/16/21 08/16/21 08/16/21 Range/Units 11:43 16:18 20:34 RBC (3.80-5.40) m/uL Hgb (11.4-16.0) gm/dL Hct (34.0-46.0) % MCV (80.0-100.0) fL RDW (11.5-15.5) % Lymphocytes # (Manual) (1.0-4.8) k/uL Monocytes # (Manual) (0-1.0) k/uL Sodium (137-145) mmol/L Potassium (3.5-5.1) mmol/L Chloride (98-107) mmol/L Creatinine (0.52-1.04) mg/dL Glucose (74-99) mg/dL POC Glucose (mg/dL) 145 H 163 H 165 H (70-110) mg/dL Calcium (8.4-10.2) mg/dL Total Protein (6.3-8.2) g/dL Albumin (3.5-5.0) g/dL 08/17/21 08/17/21 08/17/21 Range/Units 06:23 07:46 09:36 RBC 2.84 L (3.80-5.40) m/uL Hgb 9.3 L (11.4-16.0) gm/dL Hct 29.2 L (34.0-46.0) % MCV 102.7 H (80.0-100.0) fL RDW 15.9 H (11.5-15.5) % Lymphocytes # (Manual) 0.92 L (1.0-4.8) k/uL Monocytes # (Manual) 1.73 H (0-1.0) k/uL Sodium 131 L (137-145) mmol/L Potassium 3.2 L (3.5-5.1) mmol/L Chloride 97 L (98-107) mmol/L Creatinine 0.44 L (0.52-1.04) mg/dL Glucose 140 H (74-99) mg/dL POC Glucose (mg/dL) 143 H (70-110) mg/dL Calcium 7.7 L (8.4-10.2) mg/dL Total Protein 5.6 L (6.3-8.2) g/dL Albumin 2.8 L (3.5-5.0) g/dL Microbiology - Last 24 Hours (Table) 08/14/21 20:40 Blood Culture - Preliminary Blood No Growth after 48 hours
--- NOTE | 2021-08-17 15:25 | P.PN ---
Subjective Progress Note Date: 08/17/21 Patient seen and examined. She continues to have right upper extremity weakness, slight improvement of her word finding difficulties, talking more today. Feels as though she is improving. Objective - Vital Signs Vital signs: Vital Signs Temp 98.1 F 08/17/21 12:00 Pulse 86 08/17/21 14:00 Resp 18 08/17/21 14:00 BP 133/71 08/17/21 12:00 Pulse Ox 95 08/17/21 12:00 FiO2 Intake & Output 08/16/21 08/17/21 08/17/21 18:59 06:59 18:59 Intake Total 360 Output Total 1200 250 Balance -840 -250 Intake: Oral 360 Output: Urine 1200 250 Other: Voiding Method Diaper Diaper Diaper External Catheter External Catheter External Catheter # Voids 1 # Bowel Movements 1 1 - Exam Gen. is a pleasant cooperative elderly female in no acute distress. HEENT is normal cephalic, atraumatic, extraocular motion intact. Heart appears regular. Lungs are clear. Abdomen is soft. Extremity show no clubbing, cyanosis or edema. Significantly weak right upper extremity. Able to move fingers 1 through 3 slightly improved from yesterday - Labs CBC & Chem 7: 08/17/21 07:46 08/17/21 09:36 Labs: Abnormal Lab Results - Last 24 Hours (Table) 08/16/21 08/16/21 08/17/21 Range/Units 16:18 20:34 06:23 RBC (3.80-5.40) m/uL Hgb (11.4-16.0) gm/dL Hct (34.0-46.0) % MCV (80.0-100.0) fL RDW (11.5-15.5) % Lymphocytes # (Manual) (1.0-4.8) k/uL Monocytes # (Manual) (0-1.0) k/uL Sodium (137-145) mmol/L Potassium (3.5-5.1) mmol/L Chloride (98-107) mmol/L Creatinine (0.52-1.04) mg/dL Glucose (74-99) mg/dL POC Glucose (mg/dL) 163 H 165 H 143 H (70-110) mg/dL Calcium (8.4-10.2) mg/dL Total Protein (6.3-8.2) g/dL Albumin (3.5-5.0) g/dL 08/17/21 08/17/21 08/17/21 Range/Units 07:46 09:36 11:44 RBC 2.84 L (3.80-5.40) m/uL Hgb 9.3 L (11.4-16.0) gm/dL Hct 29.2 L (34.0-46.0) % MCV 102.7 H (80.0-100.0) fL RDW 15.9 H (11.5-15.5) % Lymphocytes # (Manual) 0.92 L (1.0-4.8) k/uL Monocytes # (Manual) 1.73 H (0-1.0) k/uL Sodium 131 L (137-145) mmol/L Potassium 3.2 L (3.5-5.1) mmol/L Chloride 97 L (98-107) mmol/L Creatinine 0.44 L (0.52-1.04) mg/dL Glucose 140 H (74-99) mg/dL POC Glucose (mg/dL) 126 H (70-110) mg/dL Calcium 7.7 L (8.4-10.2) mg/dL Total Protein 5.6 L (6.3-8.2) g/dL Albumin 2.8 L (3.5-5.0) g/dL Microbiology - Last 24 Hours (Table) 08/14/21 20:40 Blood Culture - Preliminary Blood No Growth after 48 hours Assessment and Plan Assessment: Symptomatic left ICA stenosis Right ICA stenosis, asymptomatic Plan: Discussion had with the patient in the nurse regarding plans, continue rehabilitation. Continue cardiac evaluation as planned. Outpatient follow-up for surgical intervention.
[2021-08-17] MEDS ORDERED: Potassium Replacement Protocol 1 EACH MISC MISCELLANE PRN (16:46)
[2021-08-17 16:49] LABS: Glucose,Whole Blood 149 mg/dL (70-110)
--- NOTE | 2021-08-17 17:36 | P.PN ---
Subjective Progress Note Date: 08/17/21 Amisha Benitez, is an 81-year-old female who presented to [facility] emergency room with a chief complaint of difficulty with her speech for the last 2 days, history was taken in the emergency room from her son who noticed that in the last 2 days patient was having difficulty finding words and expressing herself, he stated that at the facility where she lives she was noticed to have elevated blood pressure, patient was also complaining of right upper extremity weakness, she was brought to emergency room for further evaluation and treatment. She was evaluated in the emergency room vital examination on presentation revealed a temperature of 98.3 heart rate 81 respiration 20 blood pressure 140/73 pulse ox 98% on room air Laboratory data revealed a white blood count of 8.6 hemoglobin 10.9 platelet count 379 sodium 137 potassium 3.4 chloride 97 CO2 34 BUN 12 creatinine 0.51 Testing in the emergency room revealed EKG done in the emergency room revealed sinus rhythm with occasional supraventricular premature complexes and borderline left axis deviation, computed tomography scan of the brain without contrast done in the emergency room revealed mild atrophy no acute intracranial abnormality seen and moderate confluent burden of small vessel ischemic disease, chest x-ray done in the emergency room revealed possible congestive heart failure with pulmonary vascular congestion and possible thoracic vertebral end plate deformity. Patient was admitted to medical floor for further evaluation and treatment history of hypertension, history of hyperlipidemia , history of hearing difficulty, history of diabetes mellitus, history of chronic pain maintained on tramadol, history of hypothyroidism, and history of rheumatoid arthritis On 08/14/2021 patient was seen and examined on the telemetry floor she is alert and oriented 3 in no apparent distress she is still having difficulty with her speech she reports improvement in her right upper extremity weakness otherwise she denies any complaints there is no fever or chills no headache or dizziness no chest pain no shortness of breath no cough no nausea or vomiting no abdominal pain no diarrhea no blood in the stools no burning with urination no frequency or urgency and no hematuria, physical therapy and occupational therapy and speech therapy consult, vascular surgery consult regarding possible carotid endarterectomy On 08/15/2021 patient was seen and examined on the telemetry floor she is alert and oriented 3 in no apparent distress, she was having episodes of elevated temperature the night, T-max was 100.4, currently her temperature is 99.6, heart rate 86 respiration 18 blood pressure 146/77 pulse ox 96% on room air, white blood count is more elevated today at 11.4 as compared to 9.9 yesterday, there is no clear clinical or laboratory evidence of infection, urine analysis chest x-ray and blood culture were ordered, patient denies any diarrhea or any open ulcers on her skin, at this time she is not on any antibiotics will continue to monitor closely, consult for infectious disease was initiated. On 08/16/2021 patient was seen and examined on the telemetry floor she is alert and oriented 3 in no apparent distress she continues to have episodes of low- grade fever, otherwise she denies any complaints that are no chills no headache or dizziness no chest pain no shortness of breath no cough no nausea or vomiting no abdominal pain no diarrhea no blood in the stools no burning with urination no frequency or urgency and no hematuria. Pro-calcitonin was mildly elevated chest x-ray revealed basilar haziness she was started on IV Rocephin will continue to monitor closely infectious disease consultation was requested On 08/17/2021 patient was seen and examined on the telemetry floor she is alert slightly confused in no apparent distress fever and leukocytosis resolved patient is maintained on IV ceftriaxone case was discussed was Dr. Toth recommendation is for oral Ceftin at the time of discharge possible discharge to rehab in the next 1-2 days Objective - Vital Signs Vital signs: Vital Signs Temp 98.2 F 08/17/21 03:39 Pulse 85 08/17/21 03:39 Resp 17 08/17/21 03:39 BP 130/61 08/17/21 03:39 Pulse Ox 94 L 08/17/21 03:39 FiO2 Intake & Output 08/16/21 08/17/21 08/17/21 18:59 06:59 18:59 Intake Total 360 Output Total 1200 250 Balance -840 -250 Intake: Oral 360 Output: Urine 1200 250 Other: Voiding Method Diaper Diaper External Catheter External Catheter # Voids 1 # Bowel Movements 1 1 - Exam In general patient is alert and oriented x 3 in no distress HEENT head normocephalic and atraumatic Neck is supple no JVD no goiter no lymphadenopathy no carotid bruit Chest examination is clear to auscultation no crackles no wheezing Cardiac exam reveals regular heart sounds S1 and S2 no gallops no murmurs Abdomen is soft nontender no organomegaly with normal bowel sounds Extremity exam reveals no edema no cyanosis or clubbing Neurological examination reveals mild difficulty with her speech, improved since yesterday per her son at bedside, and minimal right upper extremity weakness as compared to the left otherwise no focal gross deficits - Labs CBC & Chem 7: 08/17/21 07:46 08/17/21 09:36 Labs: Abnormal Lab Results - Last 24 Hours (Table) 08/16/21 08/16/21 08/16/21 Range/Units 11:43 16:18 20:34 RBC (3.80-5.40) m/uL Hgb (11.4-16.0) gm/dL Hct (34.0-46.0) % MCV (80.0-100.0) fL RDW (11.5-15.5) % Lymphocytes # (Manual) (1.0-4.8) k/uL Monocytes # (Manual) (0-1.0) k/uL POC Glucose (mg/dL) 145 H 163 H 165 H (70-110) mg/dL 08/17/21 08/17/21 Range/Units 06:23 07:46 RBC 2.84 L (3.80-5.40) m/uL Hgb 9.3 L (11.4-16.0) gm/dL Hct 29.2 L (34.0-46.0) % MCV 102.7 H (80.0-100.0) fL RDW 15.9 H (11.5-15.5) % Lymphocytes # (Manual) 0.92 L (1.0-4.8) k/uL Monocytes # (Manual) 1.73 H (0-1.0) k/uL POC Glucose (mg/dL) 143 H (70-110) mg/dL Microbiology - Last 24 Hours (Table) 08/14/21 20:40 Blood Culture - Preliminary Blood No Growth after 48 hours Assessment and Plan Plan: Possible Acute to subacute ischemic stroke, with expressive aphasia and right upper extremity weakness Evidence of left internal carotid artery stenosis on CT angiogram of the neck Underlying history of hypertension Underlying history of hyperlipidemia Underlying history of hypothyroidism Underlying history of [id number] diabetes mellitus Underlying history of rheumatoid arthritis Underlying history of chronic pain At this time patient is admitted to telemetry floor Neurology consultation and cardiology consultation requested Echocardiogram ordered She is maintained on aspirin and She was started on Lipitor 80 mg daily For DVT prophylaxis patient is on subcu heparin For GI prophylaxis Will add Protonix Physical therapy occupational therapy and speech therapy consult requested Will follow closely
[2021-08-17 20:27] LABS: Glucose,Whole Blood 138 mg/dL (70-110)
[2021-08-17] MEDS: ATORVASTATIN 80 MG TAB PO SCH (20:32)
[2021-08-18] MEDS: SODIUM CHLORIDE 0.9% 1,000 ML IV SCH (04:01)
[2021-08-18 06:33] LABS: Glucose,Whole Blood 125 mg/dL (70-110)
[2021-08-18] MEDS: INSULIN ASPART (NovoLOG) 100 UNIT/ML VIAL SQ SCH ×2 (06:55→12:22)
[2021-08-18] MEDS: LEVOTHYROXINE 50 MCG TAB PO SCH (06:56)
[2021-08-18] MEDS: PANTOPRAZOLE 40 MG TABLET PO SCH (06:56)
--- NOTE | 2021-08-18 07:05 | P.PN ---
Progress Note - Text Patient still having trouble participating in full therapy so not ready for IPR yet.
--- NOTE | 2021-08-18 07:13 | P.PN ---
Subjective Progress Note Date: 08/17/21 Principal diagnosis: Fever Patient is 81 yr old female presenting to the hospital for aphasia concerning for a CVA did have a abnormal MRI with evidence of acute/subacute microinfarcts involving the left MCA patient subsequently did have a low-grade fever abnormal x-ray concerning for possible pneumonitis. On today's evaluation that is 08/17/2021 the patient is afebrile today, patient is breathing comfortably room air , the patient denies any chest pain or shortness of breath, the patient did have occasional cough no abdominal pain no diarrhea Objective - Vital Signs Vital signs: Vital Signs Temp 98.2 F 08/17/21 08:00 Pulse 86 08/17/21 08:00 Resp 18 08/17/21 08:00 BP 115/64 08/17/21 08:00 Pulse Ox 95 08/17/21 08:00 FiO2 Intake & Output 08/16/21 08/17/21 08/17/21 18:59 06:59 18:59 Intake Total 360 Output Total 1200 250 Balance -840 -250 Intake: Oral 360 Output: Urine 1200 250 Other: Voiding Method Diaper Diaper Diaper External Catheter External Catheter External Catheter # Voids 1 # Bowel Movements 1 1 - Exam GENERAL DESCRIPTION: Elderly female lying in bed, no distress. No tachypnea or accessory muscle of respiration use. LUNGS: Unlabored breathing. Decreased breath sound the base HEART: S1, S2, regular rate and rhythm. No loud murmur ABDOMEN: Soft, no tenderness , guarding or rigidity, no organomegaly EXTREMITIES: No edema of feet. - Labs CBC & Chem 7: 08/17/21 07:46 08/17/21 09:36 Labs: Abnormal Lab Results - Last 24 Hours (Table) 08/16/21 08/16/21 08/17/21 Range/Units 16:18 20:34 06:23 RBC (3.80-5.40) m/uL Hgb (11.4-16.0) gm/dL Hct (34.0-46.0) % MCV (80.0-100.0) fL RDW (11.5-15.5) % Lymphocytes # (Manual) (1.0-4.8) k/uL Monocytes # (Manual) (0-1.0) k/uL Sodium (137-145) mmol/L Potassium (3.5-5.1) mmol/L Chloride (98-107) mmol/L Creatinine (0.52-1.04) mg/dL Glucose (74-99) mg/dL POC Glucose (mg/dL) 163 H 165 H 143 H (70-110) mg/dL Calcium (8.4-10.2) mg/dL Total Protein (6.3-8.2) g/dL Albumin (3.5-5.0) g/dL 08/17/21 08/17/21 08/17/21 Range/Units 07:46 09:36 11:44 RBC 2.84 L (3.80-5.40) m/uL Hgb 9.3 L (11.4-16.0) gm/dL Hct 29.2 L (34.0-46.0) % MCV 102.7 H (80.0-100.0) fL RDW 15.9 H (11.5-15.5) % Lymphocytes # (Manual) 0.92 L (1.0-4.8) k/uL Monocytes # (Manual) 1.73 H (0-1.0) k/uL Sodium 131 L (137-145) mmol/L Potassium 3.2 L (3.5-5.1) mmol/L Chloride 97 L (98-107) mmol/L Creatinine 0.44 L (0.52-1.04) mg/dL Glucose 140 H (74-99) mg/dL POC Glucose (mg/dL) 126 H (70-110) mg/dL Calcium 7.7 L (8.4-10.2) mg/dL Total Protein 5.6 L (6.3-8.2) g/dL Albumin 2.8 L (3.5-5.0) g/dL Microbiology - Last 24 Hours (Table) 08/14/21 20:40 Blood Culture - Preliminary Blood No Growth after 48 hours Assessment and Plan (1) Fever Current Visit: Yes Status: Acute Code(s): R50.9 - FEVER, UNSPECIFIED SNOMED Code(s): 713512786 Plan: 1patient with a low-grade fever elevated white count in this patient presented to hospital expressive aphasia has been diagnosed with a CVA in this patient currently with no obvious physical finding suspicious for the source of infection abdominal soft on examination no evidence of any cellulitis or joint swelling new has been negative chest x-ray showed some atelectasis left lung base and a question of pneumonia. 2 Patient did have mild elevated procalcitonin concerning for possible pneumonia, the patient fever has resolved white count is normal, patient will continue with Rocephin and finish therapy with oral Ceftin Time with Patient: Less than 30
[2021-08-18 08:25] VITALS: RESP 18
[2021-08-18] MEDS: TICAGRELOR 90 MG TAB PO SCH (08:25)
[2021-08-18] MEDS: ASPIRIN 325 MG TAB PO SCH (08:25)
[2021-08-18] MEDS: FUROSEMIDE 40 MG TAB PO SCH (08:25)
[2021-08-18] MEDS: FOLIC ACID 1 MG TAB PO SCH (08:25)
[2021-08-18] MEDS: LOSARTAN 50 MG TAB PO SCH (08:26)
[2021-08-18] MEDS: cycloSPORINE 0.05% OPHTH 0.4 ML DROPERETTE BOTH EYES SCH (08:26)
[2021-08-18] MEDS: HEPARIN SODIUM,PORCINE/PF 5,000 UNIT/0.5 ML SYRINGE SQ SCH (08:26)
[2021-08-18] MEDS: NYSTATIN 100,000UNIT/GM CREAM 30 GM TUBE TOPICAL SCH (08:26)
[2021-08-18 09:35] LABS: African American GFR (CKD) >90 (>60 ml/min/1.73 sqM); Anion Gap 6 mmol/L; Blood Urea Nitrogen 8 mg/dL (7-17); Carbon Dioxide 29 mmol/L (22-30); Chloride 96 mmol/L (98-107); Glucose 156 mg/dL (74-99); Magnesium 1.2 mg/dL (1.6-2.3); Non-African American GFR(CKD) >90 (>60 ml/min/1.73 sqM); Potassium 3.6 mmol/L (3.5-5.1); Sodium 131 mmol/L (137-145)
[2021-08-18] MEDS ORDERED: POTASSIUM CHLORIDE ER 20 MEQ TAB.ER PO SCH (10:00)
[2021-08-18] MEDS: MAGNESIUM SULFATE-D5W PMX 1 GM in DEXTROSE/WATER 1 100ML.BAG IVPB SCH ×3 (10:00→14:06)
--- NOTE | 2021-08-18 12:04 | P.PN ---
Subjective Progress Note Date: 08/18/21 The patient is seen at bedside and feels about the same. Objective - Vital Signs Vital signs: Vital Signs Temp 97.8 F 08/18/21 08:23 Pulse 68 08/18/21 08:23 Resp 18 08/18/21 08:23 BP 147/72 08/18/21 08:23 Pulse Ox 93 L 08/18/21 08:23 FiO2 Intake & Output 08/17/21 08/18/21 08/18/21 18:59 06:59 18:59 Intake Total 240 Output Total 550 400 940 Balance -550 -400 -700 Intake: Oral 240 Output: Urine 550 400 940 Other: Voiding Method Diaper Diaper Diaper External Catheter External Catheter External Catheter # Bowel Movements 1 - Labs CBC & Chem 7: 08/17/21 07:46 08/18/21 08:45 Labs: Abnormal Lab Results - Last 24 Hours (Table) 08/17/21 08/17/21 08/18/21 Range/Units 16:48 20:26 06:32 Sodium (137-145) mmol/L Chloride (98-107) mmol/L Creatinine (0.52-1.04) mg/dL Glucose (74-99) mg/dL POC Glucose (mg/dL) 149 H 138 H 125 H (70-110) mg/dL Calcium (8.4-10.2) mg/dL Magnesium (1.6-2.3) mg/dL 08/18/21 Range/Units 08:45 Sodium 131 L (137-145) mmol/L Chloride 96 L (98-107) mmol/L Creatinine 0.46 L (0.52-1.04) mg/dL Glucose 156 H (74-99) mg/dL POC Glucose (mg/dL) (70-110) mg/dL Calcium 8.0 L (8.4-10.2) mg/dL Magnesium 1.2 L (1.6-2.3) mg/dL Microbiology - Last 24 Hours (Table) 08/14/21 20:40 Blood Culture - Preliminary Blood No Growth after 72 hours Assessment and Plan Assessment: Acute to subacute ischemic stroke (symptoms of Expressive aphasia and right upper extremity weakness. MRI Brain: I felt stroke over left fronto/parietal and temporal/occipital region). I feel stroke likely due to symptomatic left ICA. Symptomatic Left ICA stenosis at least 70% stenosis per CTA Has similar episode in June 2021 and appeared TIA Reported questionable atrial flutter in June 2021 (notified at outside facility--[facility]) Very hard of hearing Plan: * Continue ASA 325mg daily (was on 81mg) and stopped Plavix since he failed all start the patient on Brilinta 90 mg 1 tablet 1 tablet twice a day . Continue Lipitor 80 mg qhs for secondary stroke prophylaxis and that would help with stablize plaque over the left ICA. * Vascular surgery team is consulted for the left ICA stenosis since it symptomatic. They agree she is surgical candidate as outpatient. * Consulted cardiology team for ?reported atrial flutter in June 2021 (over at [facility]). So far unsuccessful in obtaining records from outpatient facility. They recommended Lexiscan MPI as outpatient. Recommend event monitor for 30 days and to be coordinated by cardiology. * 2-D echo was reported as normal left ventricle size and systolic function. Mild to moderate mitral regurgitation. Mild aortic stenosis. Left atrium is severely increased left atrial volume intra-atrial septum aneurysm. * Every 4 hours neuro checks * Continue cardiac monitoring * PT, OT and TYPESETTING SUPERVISOR are consulted * We'll defer the rest of the medical management to the primary team * For DVT prophylaxis Continue subcu heparin 5000 units every 12 hours * We'll defer the rest of the medical management to primary team. * Consulted Dr. Pringle for inpatient rehab but it seems patient is not inpatient candidate. [facility]. * Recommend patient to follow-up with a neurologist within 1-2 weeks as outpatient. The plan is discussed with patient and her nurse. No additional work-up needed from neurological perspective. And patient is clear for discharge. Jose Lobato M.D. Neuro-hospitalist Time with Patient: Less than 30
[2021-08-18 12:08] LABS: Glucose,Whole Blood 151 mg/dL (70-110)
[2021-08-18 12:34] VITALS: BP 163/74; PULSE 82; TEMP 98
--- NOTE | 2021-08-18 13:23 | P.DS ---
Providers Date of admission: 08/12/21 16:36 Expected date of discharge: 08/18/21 Attending physician: Gina Hanley Consults: 08/12/21 16:36 Consult Physician Urgent Consulting Provider: Caren Weinstein Consult Reason/Comments: cva Do you want consulting provider notified?: Yes 08/13/21 09:00 Consult Physician Routine Consulting Provider: Carolyn Machuca Consult Reason/Comments: left ICA stenosis Do you want consulting provider notified?: Yes 08/13/21 09:32 Consult Physician Routine Consulting Provider: Eleuterio Luke Consult Reason/Comments: questionable a flutter Do you want consulting provider notified?: Yes 08/15/21 10:35 Consult Physician Routine Consulting Provider: Pamela Toth Consult Reason/Comments: fever Do you want consulting provider notified?: Yes 08/15/21 12:13 Consult Physician Routine Consulting Provider: Zac Pringle Consult Reason/Comments: Inpatient rehab. Post stroke Do you want consulting provider notified?: Yes Primary care physician: Gina Hanley [facility] Course: Diagnosis on discharge: Acute to subacute ischemic stroke, with expressive aphasia and right upper extremity weakness Evidence of left internal carotid artery stenosis on CT angiogram of the neck Underlying history of hypertension Underlying history of hyperlipidemia Underlying history of hypothyroidism Underlying history of [id number] diabetes mellitus Underlying history of rheumatoid arthritis Underlying history of chronic pain Hospital course: Amisha Benitez, is an 81-year-old female who presented to [facility] emergency room with a chief complaint of difficulty with her speech for the last 2 days, history was taken in the emergency room from her son who noticed that in the last 2 days patient was having difficulty finding words and expressing herself, he stated that at the facility where she lives she was noticed to have elevated blood pressure, patient was also complaining of right upper extremity weakness, she was brought to emergency room for further evaluation and treatment. She was evaluated in the emergency room vital examination on presentation revealed a temperature of 98.3 heart rate 81 respiration 20 blood pressure 140/73 pulse ox 98% on room air Laboratory data revealed a white blood count of 8.6 hemoglobin 10.9 platelet count 379 sodium 137 potassium 3.4 chloride 97 CO2 34 BUN 12 creatinine 0.51 Testing in the emergency room revealed EKG done in the emergency room revealed sinus rhythm with occasional supraventricular premature complexes and borderline left axis deviation, computed tomography scan of the brain without contrast done in the emergency room revealed mild atrophy no acute intracranial abnormality seen and moderate confluent burden of small vessel ischemic disease, chest x-ray done in the emergency room revealed possible congestive heart failure with pulmonary vascular congestion and possible thoracic vertebral end plate deformity. Patient was admitted to medical floor for further evaluation and treatment history of hypertension, history of hyperlipidemia , history of hearing difficulty, history of diabetes mellitus, history of chronic pain maintained on tramadol, history of hypothyroidism, and history of rheumatoid arthritis On 08/14/2021 patient was seen and examined on the telemetry floor she is alert and oriented 3 in no apparent distress she is still having difficulty with her speech she reports improvement in her right upper extremity weakness otherwise she denies any complaints there is no fever or chills no headache or dizziness no chest pain no shortness of breath no cough no nausea or vomiting no abdominal pain no diarrhea no blood in the stools no burning with urination no frequency or urgency and no hematuria, physical therapy and occupational therapy and speech therapy consult, vascular surgery consult regarding possible carotid endarterectomy On 08/15/2021 patient was seen and examined on the telemetry floor she is alert and oriented 3 in no apparent distress, she was having episodes of elevated temperature the night, T-max was 100.4, currently her temperature is 99.6, heart rate 86 respiration 18 blood pressure 146/77 pulse ox 96% on room air, white blood count is more elevated today at 11.4 as compared to 9.9 yesterday, there is no clear clinical or laboratory evidence of infection, urine analysis chest x-ray and blood culture were ordered, patient denies any diarrhea or any open ulcers on her skin, at this time she is not on any antibiotics will continue to monitor closely, consult for infectious disease was initiated. On 08/16/2021 patient was seen and examined on the telemetry floor she is alert and oriented 3 in no apparent distress she continues to have episodes of low- grade fever, otherwise she denies any complaints that are no chills no headache or dizziness no chest pain no shortness of breath no cough no nausea or vomiting no abdominal pain no diarrhea no blood in the stools no burning with urination no frequency or urgency and no hematuria. Pro-calcitonin was mildly elevated chest x-ray revealed basilar haziness she was started on IV Rocephin will continue to monitor closely infectious disease consultation was requested On 08/17/2021 patient was seen and examined on the telemetry floor she is alert slightly confused in no apparent distress fever and leukocytosis resolved patient is maintained on IV ceftriaxone case was discussed was Dr. Toth recommendation is for oral Ceftin at the time of discharge possible discharge to rehab in the next 1-2 days Plan - Discharge Summary Discharge Rx Participant: Yes New Discharge Prescriptions: New cefUROXime axetiL [Cefuroxime] 500 mg PO BID 7 Days #14 tab Losartan [Cozaar] 50 mg PO BID tab Atorvastatin [Lipitor] 80 mg PO HS tab Pantoprazole [Protonix] 40 mg PO AC-BRKFST tab Aspirin 325 mg PO DAILY tab Ticagrelor [Brilinta] 90 mg PO BID tab Continue Methotrexate Sodium/Pf [Methotrexate 100 mg/4 ml Vial] 25 unit SQ TU Folic Acid 1 mg PO DAILY Levothyroxine Sodium [Synthroid] 50 mg PO DAILY cycloSPORINE 0.05% OPHTH SOLN [Restasis] 1 drop BOTH EYES BID Nystatin 100,000Unit/gm Cream [Mycostatin Cream] 1 applic TOPICAL BID Furosemide [Lasix] 40 mg PO DAILY Discontinued Losartan [Cozaar] 50 mg PO DAILY Aspirin EC [Ecotrin Low Dose] 81 mg PO DAILY Rosuvastatin Calcium [Crestor] 5 mg PO DAILY Clopidogrel [Plavix] 75 mg PO DAILY Discharge Medication List Folic Acid 1 mg PO DAILY 01/22/15 [History] Levothyroxine Sodium [Synthroid] 50 mg PO DAILY 01/22/15 [History] Methotrexate Sodium/Pf [Methotrexate 100 mg/4 ml Vial] 25 unit SQ TU 01/22/15 [History] Furosemide [Lasix] 40 mg PO DAILY 08/12/21 [History] Nystatin 100,000Unit/gm Cream [Mycostatin Cream] 1 applic TOPICAL BID 08/12/21 [History] cycloSPORINE 0.05% OPHTH SOLN [Restasis] 1 drop BOTH EYES BID 08/12/21 [History] Aspirin 325 mg PO DAILY tab 08/18/21 [Rx] Atorvastatin [Lipitor] 80 mg PO HS tab 08/18/21 [Rx] Losartan [Cozaar] 50 mg PO BID tab 08/18/21 [Rx] Pantoprazole [Protonix] 40 mg PO AC-BRKFST tab 08/18/21 [Rx] Ticagrelor [Brilinta] 90 mg PO BID tab 08/18/21 [Rx] cefUROXime axetiL [Cefuroxime] 500 mg PO BID 7 Days #14 tab 08/18/21 [Rx] Follow up Appointment(s)/Referral(s): Eleuterio Luke MD [STAFF PHYSICIAN] - 08/24/21 3:15 pm (Hema at 7 at on 08/18/21 and then follow up with Ti on 08/24/21 at 1515) Gina Hanley MD [Primary Care Provider] - 1-2 days Activity/Diet/Wound Care/Special Instructions: Please follow up outpatient with Cardiology with Dr. Luke after discharge.
== END 2021-08-18 16:29 | DRG 64 ==
LOC: EC 12:45 → 3SCARD 16:36
PROVIDERS: ADMIT Internal Medicine; ATTEND Internal Medicine
DX: I63.232 Cerebral infarction due to unspecified occlusion or stenosis of left carotid arteries (principal); I63.512 Cerebral infarction due to unspecified occlusion or stenosis of left middle cerebral artery; R47.1 Dysarthria and anarthria; I10 Essential (primary) hypertension; I25.10 Atherosclerotic heart disease of native coronary artery without angina pectoris; R47.01 Aphasia; M06.9 Rheumatoid arthritis, unspecified; E03.9 Hypothyroidism, unspecified; E11.9 Type 2 diabetes mellitus without complications; E78.5 Hyperlipidemia, unspecified; H91.90 Unspecified hearing loss, unspecified ear; Z79.02 Long term (current) use of antithrombotics/antiplatelets; Z79.82 Long term (current) use of aspirin; Z79.84 Long term (current) use of oral hypoglycemic drugs; Z79.899 Other long term (current) drug therapy; Z86.73 Personal history of transient ischemic attack (TIA), and cerebral infarction without residual deficits; Z87.891 Personal history of nicotine dependence; I27.21 Secondary pulmonary arterial hypertension; I49.1 Atrial premature depolarization; R50.9 Fever, unspecified
CPT/HCPCS: 36415; 70450; 70496; 70498; 70551; 71045; 71046; 80048; 80053; 80061; 81001; 83036; 83735; 84132; 84145; 84443; 84484; 85025; 85610; 85730; 87040; 87635; 93005; 93306; 93880; 94760; 99285

== ENCOUNTER 2022-02-06 07:21 | Emergency (ER) | payer MEDICARE, BC ==
[2022-02-06 07:29] VITALS: TEMP 97.5
[2022-02-06] MEDS ORDERED: LIDOCAINE 1% INJ 10MG/ML (30 ML VIAL-PF) SQ ONE (07:36)
[2022-02-06] MEDS ORDERED: ACETAMINOPHEN TAB 325 MG TAB PO STA (07:37)
[2022-02-06] MEDS ORDERED: DIPH,PERTUS(ACELL)TETVAC-LF 0.5 ML VIAL IM ONE (07:41)
--- NOTE | 2022-02-06 07:52 | ED ---
Fall HPI - General Chief Complaint: Fall Stated Complaint: fall, head injury Time Seen by Provider: 02/06/22 07:25 Source: patient, EMS, RN notes reviewed Mode of arrival: EMS - History of Present Illness Initial Comments: This is an 81-year-old female who presents to the emergency department for a fall injury. Per EMS, she fell at [facility]. Patient states that she was not using her walker to get around like she should have been, and stumbled and fell. She did fall face forward and acquired a laceration to her forehead. She takes a baby aspirin daily and is on no other blood thinners. Unsure when her last tetanus vaccine was. Patient did not lose consciousness. She denies any pain elsewhere. Denies any fevers, chills, sore throat, cough, dyspnea, chest pain, palpitations, abdominal pain, nausea, vomiting, diarrhea, or back pain. MD Complaint: fall Place Fall Occurred: home Loss of Consciousness: none Location: face - Related Data Home Medications Medication Instructions Recorded Confirmed Levothyroxine Sodium [Synthroid] 50 mcg PO DAILY 01/22/15 09/29/21 Methotrexate Sodium/Pf 25 unit SQ TU 01/22/15 09/29/21 [Methotrexate 100 mg/4 ml Vial] Furosemide [Lasix] 40 mg PO DAILY 08/12/21 09/29/21 Nystatin 100,000Unit/gm Cream 1 applic TOPICAL BID 08/12/21 09/29/21 [Mycostatin Cream] cycloSPORINE 0.05% OPHTH SOLN 1 drop BOTH EYES BID 08/12/21 09/29/21 [Restasis] Aspirin EC [Ecotrin Low Dose] 81 mg PO DAILY 09/29/21 09/29/21 Folic Acid 1 mg PO DAILY 09/29/21 09/29/21 Losartan [Cozaar] 50 mg PO DAILY 09/29/21 09/29/21 Potassium Chloride ER [K-Dur 20] 20 meq PO DAILY 09/29/21 09/29/21 Rosuvastatin Calcium [Crestor] 5 mg PO DAILY 09/29/21 09/29/21 Previous Rx's Medication Instructions Recorded Ticagrelor [Brilinta] 90 mg PO BID tab 08/18/21 ALPRAZolam [Xanax] 0.25 mg PO BID PRN tab 10/04/21 Allergies Allergy/AdvReac Type Severity Reaction Status Date / Time No Known Allergies Allergy Verified 02/06/22 07:29 Review of Systems ROS Statement: Those systems with pertinent positive or pertinent negative responses have been documented in the HPI. ROS Other: All systems not noted in ROS Statement are negative. Past Medical History Past Medical History: CVA/TIA, Hyperlipidemia, Hypertension, Rheumatoid Arthritis (RA), Thyroid Disorder Additional Past Medical History / Comment(s): hepatitis from eating oysters History of Any Multi-Drug Resistant Organisms: None Reported Past Surgical History: Joint Replacement Additional Past Surgical History / Comment(s): eye surgery Past Anesthesia/Blood Transfusion Reactions: No Reported Reaction Past Psychological History: No Psychological Hx Reported Smoking Status: Former smoker Past Alcohol Use History: None Reported Past Drug Use History: None Reported - Past Family History Father Family Medical History: Coronary Artery Disease (CAD), Rheumatoid Arthritis (RA) General Exam Limitations: no limitations General appearance: alert, in no apparent distress Head exam: Present: other (2 cm laceration to the right side of her forehead. Minor active bleeding.) Eye exam: Present: normal appearance, PERRL, EOMI. Absent: scleral icterus, conjunctival injection, periorbital swelling Respiratory exam: Present: normal lung sounds bilaterally. Absent: respiratory distress, wheezes, rales, rhonchi, stridor Cardiovascular Exam: Present: regular rate, normal rhythm, normal heart sounds. Absent: systolic murmur, diastolic murmur, rubs, gallop, clicks Neurological exam: Present: alert Psychiatric exam: Present: normal affect, normal mood Skin exam: Present: warm, dry. Absent: rash Course Vital Signs 02/06/22 02/06/22 02/06/22 07:23 08:00 08:29 Temperature 97.5 F L Pulse Rate 79 66 76 Respiratory 18 18 18 Rate Blood Pressure 115/72 115/72 126/54 O2 Sat by Pulse 97 98 97 Oximetry 02/06/22 02/06/22 09:00 10:30 Temperature Pulse Rate 83 81 Respiratory 18 17 Rate Blood Pressure 105/80 121/89 O2 Sat by Pulse 96 98 Oximetry Procedures - Laceration Laceration #1 Consent Obtained: verbal consent Indication: laceration Site: face Size (cm): 2 Description: linear Depth: simple, single layer Sedation/Analgesia: none Anesthetic Used: lidocaine 1% Anesthesia Technique: local infiltration Amount (mls): 2 Type of Sutures: nylon Size of Sutures: 5-0 Number of Sutures: 4 Technique: simple, interrupted Medical Decision Making - Medical Decision Making This is an 81-year-old female who presents to the emergency department for a head injury after a fall. Was pt. sent in by a medical professional or institution? @ -[facility] Did you speak to anyone other than the patient for history? @ -EMS Did you review nursing and triage notes? @ -Agree, accurate with regards to the patient's symptoms. Were old charts reviewed? @ -EMS records Differential Diagnosis? @ -skull fracture, concussion, contusion, hematoma, epidural bleed, subarachnoid bleed, subdural bleed. This is not meant to be an all-inclusive list. What testing was considered but not performed? (CT, X-rays, U/S, labs)? Why? @ None, this was a mechanical fall. Patient is at baseline cognitively. She has no pain or other obvious deformities to necessitate additional imaging. What meds were considered but not given? Why? @ -None Did you discuss the management of the patient with other professionals? @ -No CT interpreted by me (1pt min.)? @ -Computed tomography scan of the brain and C-spine obtained. My interpretation identifies no evidence of acute intracranial hemorrhage or skull fractures. I also identify no evidence of cervical spine fractures. Did you reconcile home meds? @ -Yes Was smoking cessation discussed for >3mins.? @ -No Was critical care preformed (if so, how long)? @ -No Were there social determinants of health that impacted care today? How? (Homelessness, low income, unemployed, alcoholism, drug addiction, transportation, low edu. Level, literacy, decrease access to med. care, usp, rehab)? @ -No Was there de-escalation of care discussed even if they declined? (Discuss DNR or withdrawal of care, Hospice)? @ -No What co-morbidities impacted this encounter? (DM, HTN, Smoking, COPD, CAD, Cancer, CVA, Hep., AIDS, mental health diagnosis, sleep apnea, morbid obesity)? @ -None Was patient admitted / discharged? @ -After physical examination and initial interview with the patient were conducted, computed tomography scan of the brain was obtained due to the head injury and my interpretation is listed above. Tetanus status was updated. Tylenol was administered for pain. Sutures were placed in the laceration on the forehead. She is instructed to return in 5-7 days for suture removal. Patient counseled on the need to use her walker when she tries to get around to avoid additional falls in the future. Recommended applying ice to the head for 10-15 minutes every 2-3 hours and taking Tylenol as needed for pain relief. Drug Therapy requiring intensive monitoring for toxicity (Heparin, Nitro, Insulin, Cardizem)? @ -None Were any procedures done? @ -Yes, sutures Diagnosis/symptom? @ -Forehead laceration Acute, or Chronic, or Acute on Chronic? @ -Acute Uncomplicated (without systemic symptoms) or Complicated (systemic symptoms)? @ -Uncomplicated Side effects of treatment? @ -Infection from the sutures Exacerbation, Progression, or Severe Exacerbation] @ -Not applicable Poses a threat to life or bodily function? @ -No Diagnosis/symptom? @ -Forehead contusion/hematoma Acute, or Chronic, or Acute on Chronic? @ -Acute Uncomplicated (without systemic symptoms) or Complicated (systemic symptoms)? @ -Uncomplicated Side effects of treatment? @ -None Exacerbation, Progression, or Severe Exacerbation] @ -Not applicable Poses a threat to life or bodily function? @ -Impact function if she develops a headache that makes it difficult for her to continue with daily tasks. Diagnosis/symptom? @ -Fall Acute, or Chronic, or Acute on Chronic? @ -Acute Uncomplicated (without systemic symptoms) or Complicated (systemic symptoms)? @ -Uncomplicated Side effects of treatment? @ -None Exacerbation, Progression, or Severe Exacerbation] @ -Not applicable Poses a threat to life or bodily function? @ -If this becomes a recurrent issue, she may have threats in the future depending on the severity and injury sustained during a fall. Return precautions reviewed in depth, the patient is instructed to return to the emergency department with any new, worsening, or concerning symptoms. Patient verbalized understanding. This case was discussed in detail with the attending ED physician. Presentation, findings, and treatment plan discussed in detail as well. - Radiology Data Radiology results: report reviewed, image reviewed Disposition Clinical Impression: Fall, Forehead laceration, Contusion of head Disposition: HOME SELF-CARE Instructions (If sedation given, give patient instructions): Care For Your Stitches (ED), Fall Prevention for Older Adults (ED) Additional Instructions: Return to the emergency department with any new, worsening, or concerning symptoms and in 5-7 days for removal of the stitches. Take Tylenol as needed for any pain. You can apply ice to the head for 10-15 minutes every 2-3 hours to help with any additional swelling. Follow up with your primary care provider in 1-2 days. Is patient prescribed a controlled substance at d/c from ED?: No Referrals: Gina Hanley MD [Primary Care Provider] - 1-2 days
--- NOTE | 2022-02-06 08:14 | CT ---
EXAMINATION TYPE: CT brain cspine wo con CT DLP: 1334.5 mGycm, Automated exposure control for dose reduction was used. DATE OF EXAM: 02/06/2022 7:58 AM COMPARISON: 09/29/2021, MRI brain 09/30/2021 CLINICAL INDICATION:Female, 81 years old with history of Fall; fall TECHNIQUE: Brain: Multiple axial CT images of the brain were obtained without IV contrast. Cspine: Axial CT images from the skull base to the inferior aspect of T2 we obtained without intraven ous contrast. Coronal and sagittal reformatted images were also reviewed. FINDINGS: Brain: Extra-axial spaces: No abnormal extra-axial fluid collections. Ventricular system: Dilatation in proportion to cerebral atrophy. Cerebral parenchyma: Cerebral atrophy. No acute intraparenchymal hemorrhage or mass effect. The cardoza -white junction is well differentiated. Scattered hypoattenuating areas are seen within the white mat ter. Cerebellum: Unremarkable. Mass effect: No evidence of midline shift. Intracranial vasculature: Atherosclerotic calcifications of the intracranial vessels. Soft tissues: Bilateral scalp edema left greater than right. Calvarium/osseous structures: No depressed skull fracture. Paranasal sinuses and mastoid air cells: Clear. Visualized orbits: Bilateral aphakia Cervical spine: Fracture: None. Osseous structures: Multilevel degenerative disc disease changes with endplate spurring and disc oste ophyte complex's. Degeneration changes of the temporomandibular joints bilaterally. Vertebral alignment: Within normal limits. Spinal canal/Neural Foramina: Disc osteophyte complexes at C2-C3 through C6-C7 with at least mild spi nal canal stenosis. Facet joint uncovertebral joint arthropathy scattered throughout the cervical spi ne with varying degrees of neural foraminal stenosis versus C5-C6 bilaterally and C6-C7 on the left. Neck soft tissues: Prevertebral soft tissues are within normal limits. Other: The airway is patent. Pleural scarring noted bilaterally. IMPRESSION: 1. No acute intracranial process. 2. Nonspecific white matter changes, likely secondary to chronic small vessel ischemic disease. 3. At least moderate spinal canal stenosis at C2-C3 secondary to osteophyte complex. 4. No evidence of cervical spine fracture. 5. Moderate multilevel degenerative disc disease.
[2022-02-06 11:07] VITALS: BP 121/89; PULSE 81; RESP 17
== END 2022-02-06 10:30 | disposition home or self-care (01) ==
LOC: EC 07:21
DX: S01.81XA Laceration without foreign body of other part of head, initial encounter (principal); I10 Essential (primary) hypertension; E78.5 Hyperlipidemia, unspecified; E07.9 Disorder of thyroid, unspecified; Z79.890 Hormone replacement therapy; Z79.899 Other long term (current) drug therapy; Z79.82 Long term (current) use of aspirin; Z87.891 Personal history of nicotine dependence; Z23 Encounter for immunization; W06.XXXA Fall from bed, initial encounter
CPT/HCPCS: 72125; 70450; 90715; 12001; 99285; 90471; J2001

== ENCOUNTER 2022-02-17 13:57 | Inpatient (IN) | payer MEDICARE, BC ==
[2022-02-17] MEDS ORDERED: SODIUM CHLORIDE 0.9% 500 ML 500 ML IV ONE (14:22)
[2022-02-17] MEDS ORDERED: ACETAMINOPHEN TAB 500 MG TAB PO STA (14:23)
--- NOTE | 2022-02-17 15:08 | ED ---
Altered Mental Status HPI - General Chief Complaint: Altered Mental Status Stated Complaint: AMS Time Seen by Provider: 02/17/22 14:13 Source: EMS Mode of arrival: EMS Limitations: altered mental status - History of Present Illness Initial Comments: Patient is an 81-year-old female with history of dementia presenting with chief complaint of altered mental status. Patient currently resides in an [facility] home. They state that patient has not gotten out of bed in a couple days. Patient is normally ambulatory. They also note increased confusion. There is a influenza A outbreak at the [facility] home. Patient was seen here on 02/06 after a fall which r equired sutures to the forehead. Computed tomography scan was negative at that time. Patient is not able to answer questions at this time, currently yelling incomprehensible words. Not able to follow directions at this time. History was obtained from the nurse who spoke to EMS. - Related Data Home Medications Medication Instructions Recorded Confirmed Levothyroxine Sodium [Synthroid] 50 mcg PO DAILY 01/22/15 02/17/22 Methotrexate Sodium/Pf 25 unit SQ TU 01/22/15 02/17/22 [Methotrexate 100 mg/4 ml Vial] Furosemide [Lasix] 40 mg PO DAILY 08/12/21 02/17/22 Nystatin 100,000Unit/gm Cream 1 applic TOPICAL BID 08/12/21 02/17/22 [Mycostatin Cream] Aspirin EC [Ecotrin Low Dose] 81 mg PO DAILY 09/29/21 02/17/22 Folic Acid 1 mg PO DAILY 09/29/21 02/17/22 Losartan [Cozaar] 50 mg PO DAILY 09/29/21 02/17/22 Potassium Chloride ER [K-Dur 20] 20 meq PO DAILY 09/29/21 02/17/22 Rosuvastatin Calcium [Crestor] 5 mg PO DAILY 09/29/21 02/17/22 ALPRAZolam [Xanax] 0.5 mg PO TID PRN 02/17/22 02/17/22 Clopidogrel [Plavix] 75 mg PO HS 02/17/22 02/17/22 Escitalopram [Lexapro] 20 mg PO DAILY 02/17/22 02/17/22 Desi-Lanta 15 ml PO BID PRN 02/17/22 02/17/22 Kaolin Pectin 30 ml PO DIRECTED PRN 02/17/22 02/17/22 Magnesium Hydroxide [Milk of 2,400 mg PO HS PRN 02/17/22 02/17/22 Magnesia] Medihoney Paste 1 applic TOPICAL DAILY PRN 02/17/22 02/17/22 Oseltamivir [Tamiflu] 75 mg PO Q12HR 02/17/22 02/17/22 busPIRone HCL [Buspar] 7.5 mg PO BID 02/17/22 02/17/22 guaiFENesin SYRUP 100MG/5ML 200 mg PO Q6H PRN 02/17/22 02/17/22 [Robitussin] Previous Rx's Medication Instructions Recorded Ticagrelor [Brilinta] 90 mg PO BID tab 08/18/21 Allergies Allergy/AdvReac Type Severity Reaction Status Date / Time No Known Allergies Allergy Verified 02/17/22 15:21 Review of Systems ROS Statement: Those systems with pertinent positive or pertinent negative responses have been documented in the HPI. ROS Other: All systems not noted in ROS Statement are negative. Past Medical History Past Medical History: CVA/TIA, Hyperlipidemia, Hypertension, Rheumatoid Arthritis (RA), Thyroid Disorder Additional Past Medical History / Comment(s): hepatitis from eating oysters History of Any Multi-Drug Resistant Organisms: None Reported Past Surgical History: Joint Replacement Additional Past Surgical History / Comment(s): eye surgery Past Anesthesia/Blood Transfusion Reactions: No Reported Reaction Past Psychological History: No Psychological Hx Reported Smoking Status: Former smoker Past Alcohol Use History: None Reported Past Drug Use History: None Reported - Past Family History Father Family Medical History: Coronary Artery Disease (CAD), Rheumatoid Arthritis (RA) General Exam Limitations: altered mental status General appearance: obtunded Head exam: Present: normocephalic, other (Sutures in forehead) Neck exam: Present: normal inspection Respiratory exam: Present: normal lung sounds bilaterally. Absent: respiratory distress, wheezes, rales, rhonchi, stridor Cardiovascular Exam: Present: regular rate, normal rhythm, normal heart sounds. Absent: systolic murmur, diastolic murmur, rubs, gallop, clicks Neurological exam: Present: altered Expanded Eye Response: (3) open to voice Motor Response: (5) localizes to pain Verbal Response: incomprehensible sounds [place] Total: 10 Skin exam: Present: warm, dry, intact, normal color. Absent: rash Course Vital Signs 02/17/22 02/17/22 02/17/22 14:00 14:20 17:25 Temperature 101.0 F H 99.0 F Pulse Rate 85 86 Respiratory 20 18 18 Rate Blood Pressure 167/77 144/82 O2 Sat by Pulse 98 99 Oximetry Medical Decision Making - Medical Decision Making Was pt. sent in by a medical professional or institution (, PA, SAFETY SECURITY OFFICER, urgent care, hospital, or skilled nursing...) When possible be specific @ -[facility] Did you speak to anyone other than the patient for history (EMS, parent, family, police, friend...)? What history was obtained from this source @ -EMS Did you review nursing and triage notes (agree or disagree)? Why? @ -[I reviewed and agree with nursing and triage notes] Were old charts reviewed (outside hosp., previous admission, EMS record, old EKG, old radiological studies, urgent care reports/EKG's, skilled nursing records)? Report findings @ -[No old charts were reviewed] Differential Diagnosis (chest pain, altered mental status, abdominal pain women, abdominal pain men, vaginal bleeding, weakness, fever, dyspnea, syncope, headache, dizziness, GI bleed, back pain, seizure, CVA, palpatations, mental health)? @ -MDM Differential Altered Mental Status: Hypoglycemia, DKA, hypercapnia, ETOH, overdose, CO poisoning, trauma, myxedema coma, HTN encephalopathy, infection, encephalitis, psychosis, intercranial hemorrhage, hepatic encephalopathy, meningitis, CVA this is not meant to be an all-inclusive list EKG interpreted by me (3pts min.). @ -Sinus rhythm with occasional supraventricular premature complexes. Ventricular rate 89. IN interval 196. QRS 93. QT 262. QTc 308. Left axis deviation. X-rays interpreted by me (1pt min.). @ -Interpreted by me and radiologist report is reviewed. Small posterior infiltrate. ROM and in pulmonary vascular markings CT interpreted by me (1pt min.). @ -No, radiologist report reviewed. Chronic appearing periventricular white matter ischemic type changes, stable from comparison. Mucosal thickening throughout multiple paranasal sinuses. U/S interpreted by me (1pt. min.). @ -[None done] What testing was considered but not performed or refused? (CT, X-rays, U/S, labs)? Why? @ -[None] What meds were considered but not given or refused? Why? @ -[None] Did you discuss the management of the patient with other professionals (professionals i.e. , PA, SAFETY SECURITY OFFICER, lab, RT, psych nurse, social media manager, database administration project manager, teacher, officer captain, manager of loss prevention operations)? Give summary @ -[No] Was smoking cessation discussed for >3mins.? @ -[No] Was critical care preformed (if so, how long)? @ -[No] Were there social determinants of health that impacted care today? How? (Homele ssness, low income, unemployed, alcoholism, drug addiction, transportation, low edu. Level, literacy, decrease access to med. care, [facility], rehab)? @ -[No] Was there de-escalation of care discussed even if they declined (Discuss DNR or withdrawal of care, Hospice)? DNR status @ -[No] What co-morbidities impacted this encounter? (DM, HTN, Smoking, COPD, CAD, Cancer, CVA, ARF, Chemo, Hep., AIDS, mental health diagnosis, sleep apnea, morbid obesity)? @ -Dementia Was patient admitted / discharged? Hospital course, mention meds given and route, prescriptions, significant lab abnormalities, going to OR and other pertinent info. @ -Patient is an 81-year-old female presenting via EMS from skilled nursing for altered mental status. [facility] staff states that for the past few days she has been increasingly confused, she is also not been ambulatory and she is normally fully ambulatory. On physical examination patient cannot cooperate and follow directions. GCS 10. WBC 8.0. Hemoglobin 11.1, consistent with baseline. Patient is positive for influenza A. Chest x-ray shows infiltrate. CT of the brain shows chronic changes stable from comparison exam. Urine is pending at this time, patient will need to be straight cathed. Patient will be admitted for influenza, pneumonia, altered mental status. Possible UTI. I spoke with Dr. Krishnamurthy accepted admission. I discussed this case with my attending Dr. Montaño. Undiagnosed new problem with uncertain prognosis? @ -[No] Drug Therapy requiring intensive monitoring for toxicity (Heparin, Nitro, Insulin, Cardizem)? @ -[No] Were any procedures done? @ -[No] Diagnosis/symptom? @ -Influenza Acute, or Chronic, or Acute on Chronic? @ -Acute Uncomplicated (without systemic symptoms) or Complicated (systemic symptoms)? @ -Complicated Side effects of treatment? @ -[No] Exacerbation, Progression, or Severe Exacerbation? @ -[No] Poses a threat to life or bodily function? How? (Chest pain, [place], VA, pneumonia, PE, COPD, DKA, ARF, appy, cholecystitis, CVA, Diverticulitis, Homicidal, Suicid al, threat to staff... and all critical care pts) @ -Potentially, risk of pulmonary failure Diagnosis/symptom? @Altered mental status Acute, or Chronic, or Acute on Chronic? @Acute Uncomplicated (without systemic symptoms) or Complicated (systemic symptoms)? @Complicated Side effects of treatment? @ [none] Exacerbation, Progression, or Severe Exacerbation] @ [no] Poses a threat to life or bodily function? @ [no] - Lab Data Result diagrams: 02/17/22 14:53 02/17/22 14:53 Lab Results 02/17/22 02/17/22 02/17/22 Range/Units 14:23 14:53 14:53 WBC 8.0 (3.8-10.6) k/uL RBC 3.24 L (3.80-5.40) m/uL Hgb 11.1 L (11.4-16.0) gm/dL Hct 33.5 L (34.0-46.0) % MCV 103.5 H (80.0-100.0) fL MCH 34.2 (25.0-35.0) pg MCHC 33.1 (31.0-37.0) g/dL RDW 15.2 (11.5-15.5) % Plt Count 370 (150-450) k/uL MPV 7.9 Neutrophils % 86 % Lymphocytes % 11 % Monocytes % 3 % Eosinophils % 0 % Basophils % 0 % Neutrophils # 6.8 (1.3-7.7) k/uL Lymphocytes # 0.9 L (1.0-4.8) k/uL Monocytes # 0.2 (0-1.0) k/uL Eosinophils # 0.0 (0-0.7) k/uL Basophils # 0.0 (0-0.2) k/uL Macrocytosis Slight PT 11.0 (9.0-12.0) sec INR 1.1 (<1.2) APTT 21.5 L (22.0-30.0) sec Sodium (137-145) mmol/L Potassium (3.5-5.1) mmol/L Chloride (98-107) mmol/L Carbon Dioxide (22-30) mmol/L Anion Gap mmol/L BUN (7-17) mg/dL Creatinine (0.52-1.04) mg/dL Est GFR (CKD-EPI)AfAm (>60 ml/min/1.73 sqM) Est GFR (CKD-EPI)NonAf (>60 ml/min/1.73 sqM) Glucose (74-99) mg/dL Calcium (8.4-10.2) mg/dL Total Bilirubin (0.2-1.3) mg/dL AST (14-36) U/L ALT (4-34) U/L Alkaline Phosphatase (38-126) U/L Ammonia (<30) umol/L Troponin I (0.000-0.034) ng/mL NT-Pro-B Natriuret Pep pg/mL Total Protein (6.3-8.2) g/dL Albumin (3.5-5.0) g/dL Urine Color Urine Appearance (Clear) Urine pH (5.0-8.0) Ur Specific [place] (1.001-1.035) Urine Protein (Negative) Urine Glucose (UA) (Negative) Urine Ketones (Negative) Urine Blood (Negative) Urine Nitrite (Negative) Urine Bilirubin (Negative) Urine Urobilinogen (<2.0) mg/dL Ur Leukocyte Esterase (Negative) Urine RBC (0-5) /hpf Urine WBC (0-5) /hpf Urine WBC Clumps (None) /hpf Amorphous Sediment (None) /hpf Urine Bacteria (None) /hpf Urine Mucus (None) /hpf Influenza Type A (PCR) Detected A (Not Detectd) Influenza Type B (PCR) Not Detected (Not Detectd) RSV (PCR) Not Detected (Not Detectd) SARS-CoV-2 (PCR) Not Detected (Not Detectd) 02/17/22 02/17/22 02/17/22 Range/Units 14:53 14:53 14:53 WBC (3.8-10.6) k/uL RBC (3.80-5.40) m/uL Hgb (11.4-16.0) gm/dL Hct (34.0-46.0) % MCV (80.0-100.0) fL MCH (25.0-35.0) pg MCHC (31.0-37.0) g/dL RDW (11.5-15.5) % Plt Count (150-450) k/uL MPV Neutrophils % % Lymphocytes % % Monocytes % % Eosinophils % % Basophils % % Neutrophils # (1.3-7.7) k/uL Lymphocytes # (1.0-4.8) k/uL Monocytes # (0-1.0) k/uL Eosinophils # (0-0.7) k/uL Basophils # (0-0.2) k/uL Macrocytosis PT (9.0-12.0) sec INR (<1.2) APTT (22.0-30.0) sec Sodium 138 (137-145) mmol/L Potassium 3.6 (3.5-5.1) mmol/L Chloride 98 (98-107) mmol/L Carbon Dioxide 27 (22-30) mmol/L Anion Gap 13 mmol/L BUN 12 (7-17) mg/dL Creatinine 0.53 (0.52-1.04) mg/dL Est GFR (CKD-EPI)AfAm >90 (>60 ml/min/1.73 sqM) Est GFR (CKD-EPI)NonAf 88 (>60 ml/min/1.73 sqM) Glucose 175 H (74-99) mg/dL Calcium 8.1 L (8.4-10.2) mg/dL Total Bilirubin 0.6 (0.2-1.3) mg/dL AST 26 (14-36) U/L ALT 11 (4-34) U/L Alkaline Phosphatase 67 (38-126) U/L Ammonia (<30) umol/L Troponin I 0.034 (0.000-0.034) ng/mL NT-Pro-B Natriuret Pep pg/mL Total Protein 6.8 (6.3-8.2) g/dL Albumin 3.6 (3.5-5.0) g/dL Urine Color Yellow Urine Appearance Turbid H (Clear) Urine pH 5.5 (5.0-8.0) Ur Specific [place] 1.017 (1.001-1.035) Urine Protein 2+ H (Negative) Urine Glucose (UA) Negative (Negative) Urine Ketones 2+ H (Negative) Urine Blood Moderate H (Negative) Urine Nitrite Negative (Negative) Urine Bilirubin Negative (Negative) Urine Urobilinogen <2.0 (<2.0) mg/dL Ur Leukocyte Esterase Large H (Negative) Urine RBC 44 H (0-5) /hpf Urine WBC >182 H (0-5) /hpf Urine WBC Clumps Many H (None) /hpf Amorphous Sediment Rare H (None) /hpf Urine Bacteria Few H (None) /hpf Urine Mucus Few H (None) /hpf Influenza Type A (PCR) (Not Detectd) Influenza Type B (PCR) (Not Detectd) RSV (PCR) (Not Detectd) SARS-CoV-2 (PCR) (Not Detectd) 02/17/22 02/17/22 Range/Units 14:53 14:53 WBC (3.8-10.6) k/uL RBC (3.80-5.40) m/uL Hgb (11.4-16.0) gm/dL Hct (34.0-46.0) % MCV (80.0-100.0) fL MCH (25.0-35.0) pg MCHC (31.0-37.0) g/dL RDW (11.5-15.5) % Plt Count (150-450) k/uL MPV Neutrophils % % Lymphocytes % % Monocytes % % Eosinophils % % Basophils % % Neutrophils # (1.3-7.7) k/uL Lymphocytes # (1.0-4.8) k/uL Monocytes # (0-1.0) k/uL Eosinophils # (0-0.7) k/uL Basophils # (0-0.2) k/uL Macrocytosis PT (9.0-12.0) sec INR (<1.2) APTT (22.0-30.0) sec Sodium (137-145) mmol/L Potassium (3.5-5.1) mmol/L Chloride (98-107) mmol/L Carbon Dioxide (22-30) mmol/L Anion Gap mmol/L BUN (7-17) mg/dL Creatinine (0.52-1.04) mg/dL Est GFR (CKD-EPI)AfAm (>60 ml/min/1.73 sqM) Est GFR (CKD-EPI)NonAf (>60 ml/min/1.73 sqM) Glucose (74-99) mg/dL Calcium (8.4-10.2) mg/dL Total Bilirubin (0.2-1.3) mg/dL AST (14-36) U/L ALT (4-34) U/L Alkaline Phosphatase (38-126) U/L Ammonia <9 (<30) umol/L Troponin I (0.000-0.034) ng/mL NT-Pro-B Natriuret Pep 463 pg/mL Total Protein (6.3-8.2) g/dL Albumin (3.5-5.0) g/dL Urine Color Urine Appearance (Clear) Urine pH (5.0-8.0) Ur Specific [place] (1.001-1.035) Urine Protein (Negative) Urine Glucose (UA) (Negative) Urine Ketones (Negative) Urine Blood (Negative) Urine Nitrite (Negative) Urine Bilirubin (Negative) Urine Urobilinogen (<2.0) mg/dL Ur Leukocyte Esterase (Negative) Urine RBC (0-5) /hpf Urine WBC (0-5) /hpf Urine WBC Clumps (None) /hpf Amorphous Sediment (None) /hpf Urine Bacteria (None) /hpf Urine Mucus (None) /hpf Influenza Type A (PCR) (Not Detectd) Influenza Type B (PCR) (Not Detectd) RSV (PCR) (Not Detectd) SARS-CoV-2 (PCR) (Not Detectd) Disposition Clinical Impression: Influenza, AMS (altered mental status) Disposition: ADMITTED IP TO THIS HOSP Condition: Fair Time of Disposition: 17:03 Decision to Admit Reason: Admit from EC Decision Date: 02/17/22 Decision Time: 17:03
--- NOTE | 2022-02-17 15:12 | CT ---
EXAMINATION TYPE: CT brain wo con DATE OF EXAM: 02/17/2022 COMPARISON: 02/06/2022 INDICATION: Altered mental status. DLP: 2073.9 mGycm, Automated exposure control for dose reduction was used. CONTRAST: None CT of the brain is performed utilizing 3 mm thick sections through the posterior fossa and 3 mm thick sections through the remaining calvarium. Study is performed within 24 hours of arrival to the hosp ital. No abnormal hyperdensity is present to suggest an acute intracranial hemorrhage. No mass lesion is evident. No acute infarcts are evident. Periventricular white matter hypodensity is present, likely on the bas is of patchy to confluent periventricular white matter ischemic changes. Ventricles and sulci are prominent for the patient age. There is mucosal thickening throughout ethmoid air cells. Small amount of mucosal thickening within t he maxillary sinuses. Minimal posterior left frontal sinus mucosal thickening is present. Mastoid air cells are clear. IMPRESSIONS: 1. Chronic appearing periventricular white matter ischemic type changes, stable from comparison. Fo llow-up MRI can be performed as clinically indicated. 2. Mucosal thickening throughout multiple paranasal sinuses. Correlate for pansinusitis.
--- NOTE | 2022-02-17 15:15 | XR ---
EXAMINATION TYPE: XR chest 2V DATE OF EXAM: 02/17/2022 COMPARISON: 09/29/2021 INDICATION: Altered mental status TECHNIQUE: Frontal and lateral views of the chest are obtained. FINDINGS: The heart size is normal. The pulmonary vasculature is prominent. There is some posterior infiltrate or effusion on the lateral projection.. IMPRESSION: 1. Small posterior infiltrate or pleural effusion. 2. Prominent pulmonary vascular markings. Correlate for volume overload.
[2022-02-17 15:19] LABS: Basophils % (A) 0 %; Eosinophils % (A) 0 %; HCT 33.5 % (34.0-46.0); HGB 11.1 gm/dL (11.4-16.0); Lymphocytes # (A) 0.9 k/uL (1.0-4.8); Lymphocytes % (A) 11 %; MCH 34.2 pg (25.0-35.0); MCHC 33.1 g/dL (31.0-37.0); MCV 103.5 fL (80.0-100.0); Macrocytosis Slight; Mean Platelet Volume 7.9; Monocytes # (A) 0.2 k/uL (0-1.0); Monocytes % (A) 3 %; Neutrophils # (A) 6.8 k/uL (1.3-7.7); Neutrophils % (A) 86 %; Platelet Count 370 k/uL (150-450); RBC 3.24 m/uL (3.80-5.40); RDW 15.2 % (11.5-15.5)
[2022-02-17 15:46] LABS: INR 1.1 (<1.2)
[2022-02-17 15:49] LABS: Partial Thromboplastin Time 21.5 sec (22.0-30.0)
[2022-02-17 15:51] LABS: ALT 11 U/L (4-34); AST 26 U/L (14-36); African American GFR (CKD) >90 (>60 ml/min/1.73 sqM); Albumin 3.6 g/dL (3.5-5.0); Alkaline Phosphatase 67 U/L (38-126); Anion Gap 13 mmol/L; Blood Urea Nitrogen 12 mg/dL (7-17); Calcium 8.1 mg/dL (8.4-10.2); Carbon Dioxide 27 mmol/L (22-30); Chloride 98 mmol/L (98-107); Glucose 175 mg/dL (74-99); Non-African American GFR(CKD) 88 (>60 ml/min/1.73 sqM); Potassium 3.6 mmol/L (3.5-5.1); Sodium 138 mmol/L (137-145); Total Bilirubin 0.6 mg/dL (0.2-1.3); Total Protein 6.8 g/dL (6.3-8.2)
[2022-02-17] MEDS ORDERED: cefTRIAXone IN SWFI 1,000 MG/10 ML SYRINGE IVP STA (17:02)
[2022-02-17] MEDS ORDERED: NALOXONE 0.4 MG/ML 1 ML VIAL IV PRN (17:05)
[2022-02-17] MEDS ORDERED: ACETAMINOPHEN IV (For NPO) 1,000 MG in EMPTY BAG 1 BAG IVPB STA (17:08)
[2022-02-17] MEDS: SODIUM CHLORIDE 0.9% 1,000 ML IV SCH (17:47)
[2022-02-17 18:18] LABS: Amorphous Sediment,Urine Rare /hpf; Appearance,Urine Turbid (Clear); Bacteria,Urine Few /hpf; Bilirubin,Urine Negative (Negative); Blood,Urine Moderate (Negative); Color,Urine Yellow; Glucose,Urine (UA) Negative (Negative); Ketones,Urine 2+ (Negative); Leukocyte Esterase,Urine Large (Negative); Mucus,Urine Few /hpf; Nitrite,Urine Negative (Negative); PH, Urine 5.5 (5.0-8.0); Protein,Urine 2+ (Negative); RBC,Urine 44 /hpf (0-5); Specific Gravity,Urine 1.017 (1.001-1.035); Urobilinogen,Urine <2.0 mg/dL (<2.0); WBC,Urine >182 /hpf (0-5)
[2022-02-17] MEDS: OSELTAMIVIR 75 MG CAP PO SCH (21:20)
[2022-02-18] MEDS: OSELTAMIVIR 75 MG CAP PO SCH ×2 (08:33→20:38)
[2022-02-18] MEDS ORDERED: MAGNESIUM HYDROXIDE 2,400 MG/10 ML CUP PO PRN (11:19)
[2022-02-18] MEDS ORDERED: LACTULOSE 20 GM/30 ML CUP PO PRN (11:52)
[2022-02-18] MEDS ORDERED: ACETAMINOPHEN TAB 325 MG TAB PO PRN (11:52)
[2022-02-18] MEDS ORDERED: ONDANSETRON 4 MG/2 ML VIAL IVP PRN (11:52)
[2022-02-18] MEDS ORDERED: LORazepam 2 MG/ML INJ IV PRN (11:52)
[2022-02-18] MEDS: ASPIRIN 81 MG PO SCH (12:27)
[2022-02-18] MEDS: ENOXAPARIN 40 MG/0.4 ML SYRINGE SQ SCH (12:27)
[2022-02-18] MEDS: ATORVASTATIN 10 MG TAB PO SCH (12:28)
[2022-02-18] MEDS: ESCITALOPRAM 20 MG TAB PO SCH (12:28)
[2022-02-18] MEDS: busPIRone HCl 5 MG TAB PO SCH ×2 (12:28→20:39)
[2022-02-18] MEDS: LOSARTAN 50 MG TAB PO SCH (12:28)
[2022-02-18] MEDS: LEVOTHYROXINE 50 MCG TAB PO SCH (12:28)
[2022-02-18] MEDS: NYSTATIN 100,000UNIT/GM CREAM 30 GM TUBE TOPICAL SCH ×2 (12:29→23:03)
[2022-02-18] MEDS: SODIUM CHLORIDE 0.9% 250 ML IV SCH ×3 (14:35→14:56)
[2022-02-18] MEDS: SODIUM CHLORIDE 0.9% 1,000 ML IV SCH ×3 (14:35→20:43)
[2022-02-18] MEDS: TICAGRELOR 90 MG TAB PO SCH ×2 (14:40→20:40)
--- NOTE | 2022-02-18 15:31 | P.HPIM ---
History of Present Illness H&P Date: 02/18/22 Chief Complaint: Congested cough This is a 81-year-old patient who follows with Dr. Darling from visiting physicians. History is obtained by the son Chago Morataya at the bedside. Chronic stable medical conditions include hyperlipidemia, hypertension, aortic, hypothyroid. Patient lives at the [facility]. Patient for last 10 days has been using a wheelchair. Had a fall prior to that. Before that she was using no walker. Has underlying dementia. For last 2 days patient become increasingly cough congested confused. Occasionally answering questions. Tested positive for influenza a, another resident at the [facility] had the same. Not eating anything. Refusing medications. Patient has still not able to give much of history. Will occasionally answer question. Review of systems: GEN.: Tired, confused, decreased appetite EYES: None HEENT: None NECK: None RESPIRATORY: Congested cough CARDIOVASCULAR: None GASTROINTESTINAL: None GENITOURINARY: Incontinent MUSCULOSKELETAL: [Arthritis LYMPHATICS: None HEMATOLOGICAL: None PSYCHIATRY: Confused NEUROLOGICAL: Uses a walker and wheelchair Past medical history to include: Hyperlipidemia, TIA, hypertension, RA, hypothyroid, hepatitis Social history: Lives at [facility]. Previous smoker. No alcohol. Patient's son Chago Moartaya is the POA Physical examination: VITAL SIGNS: 101, 85, 20, 167/77, 98% on 2 L GENERAL: BMI 24, reclining in bed bouts of coughing. EYES: Pupils equal. Conjunctiva normal. HEENT: External appearance of nose and ears normal, oral cavity-dry mucous membranes NECK: JVD not raised; masses not palpable. HEART: First and second heart sounds are normal; no edema. LUNGS: Respiratory rate increased, decreased breath sounds on wheezing. ABDOMEN: Soft, nontender, liver spleen not palpable, no masses palpable. PSYCH: Patient didn't tell her name, otherwise fluctuating sensoriuml. MUSCULOSKELETAL:No Clubbing/cyanosis;muscles-grossly intact. OA NEUROLOGICAL: Cranial nerves grossly intact; no facial asymmetry, power and sensation grossly intact. LYMPHATICS: No lymph nodes palpable in the axilla and neck INVESTIGATIONS, reviewed in the clinical context: White count 8 hemoglobin 11.1 platelets 370 potassium 3.6 creatinine 0.53 UA positive for protein 2+ ketones 2+ leukoesterase, WBC clumps, bacteria Influenza type A detected [influenza type B/RSV/COVID-19: Not detected] EKG tracing personally reviewed by me-normal sinus rhythm. Nonspecific T-wave changes. Chest x-ray film personally reviewed by me-fleeting infiltrates Assessment and plan: -Acute influenza A pneumonitis, patient was taking Tamiflu at the [facility]. 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 On feeding with assistance. IV fluids. Tamiflu. Resume home medications. Care was discussed the patient. Questions answered. Advance care planning: Discussed with the son at the bedside. He is also the patient's POA decision- maker.. Given patient's age and comorbidities increased to be DO NOT RESUSCITATE. Questions answered. Past Medical History Past Medical History: CVA/TIA, Hyperlipidemia, Hypertension, Rheumatoid Arthritis (RA), Thyroid Disorder Additional Past Medical History / Comment(s): hepatitis from eating oysters History of Any Multi-Drug Resistant Organisms: None Reported Past Surgical History: Joint Replacement Additional Past Surgical History / Comment(s): eye surgery Past Anesthesia/Blood Transfusion Reactions: No Reported Reaction Past Psychological History: No Psychological Hx Reported Smoking Status: Former smoker Past Alcohol Use History: None Reported Past Drug Use History: None Reported - Past Family History Father Family Medical History: Coronary Artery Disease (CAD), Rheumatoid Arthritis (RA) Medications and Allergies Home Medications Medication Instructions Recorded Confirmed Type Levothyroxine Sodium [Synthroid] 50 mcg PO DAILY 01/22/15 02/17/22 History Methotrexate Sodium/Pf 25 unit SQ TU 01/22/15 02/17/22 History [Methotrexate 100 mg/4 ml Vial] Furosemide [Lasix] 40 mg PO DAILY 08/12/21 02/17/22 History Nystatin 100,000Unit/gm Cream 1 applic TOPICAL BID 08/12/21 02/17/22 History [Mycostatin Cream] Ticagrelor [Brilinta] 90 mg PO BID tab 08/18/21 02/17/22 Rx Aspirin EC [Ecotrin Low Dose] 81 mg PO DAILY 09/29/21 02/17/22 History Folic Acid 1 mg PO DAILY 09/29/21 02/17/22 History Losartan [Cozaar] 50 mg PO DAILY 09/29/21 02/17/22 History Potassium Chloride ER [K-Dur 20] 20 meq PO DAILY 09/29/21 02/17/22 History Rosuvastatin Calcium [Crestor] 5 mg PO DAILY 09/29/21 02/17/22 History ALPRAZolam [Xanax] 0.5 mg PO TID PRN 02/17/22 02/17/22 History Clopidogrel [Plavix] 75 mg PO HS 02/17/22 02/17/22 History Escitalopram [Lexapro] 20 mg PO DAILY 02/17/22 02/17/22 History Desi-Lanta 15 ml PO BID PRN 02/17/22 02/17/22 History Kaolin Pectin 30 ml PO DIRECTED PRN 02/17/22 02/17/22 History Magnesium Hydroxide [Milk of 2,400 mg PO HS PRN 02/17/22 02/17/22 History Magnesia] Medihoney Paste 1 applic TOPICAL DAILY PRN 02/17/22 02/17/22 History Oseltamivir [Tamiflu] 75 mg PO Q12HR 02/17/22 02/17/22 History busPIRone HCL [Buspar] 7.5 mg PO BID 02/17/22 02/17/22 History guaiFENesin SYRUP 100MG/5ML 200 mg PO Q6H PRN 02/17/22 02/17/22 History [Robitussin] Allergies Allergy/AdvReac Type Severity Reaction Status Date / Time No Known Allergies Allergy Verified 02/17/22 15:21 Physical Exam Vitals: Vital Signs Temp Pulse Pulse Resp BP BP Pulse Ox 02/18/22 07:11 97.5 F L 68 20 163/49 98 02/18/22 02:23 97.4 F L 75 20 145/71 94 L 02/17/22 19:55 97.9 F 74 18 135/67 96 02/17/22 17:25 99.0 F 86 18 144/82 99 02/17/22 14:20 18 02/17/22 14:00 101.0 F H 85 20 167/77 98 Intake and Output 02/17/22 02/18/22 02/18/22 22:59 06:59 14:59 Intake Total 360 Output Total 450 Balance -90 Intake: Oral 360 Output: Urine 450 Other: Voiding Method External Catheter Weight 63.503 kg Results CBC & Chem 7: 02/17/22 14:53 02/17/22 14:53 Labs: Abnormal Lab Results - Last 24 Hours (Table) 02/17/22 02/17/22 02/17/22 Range/Units 14:23 14:53 14:53 RBC 3.24 L (3.80-5.40) m/uL Hgb 11.1 L (11.4-16.0) gm/dL Hct 33.5 L (34.0-46.0) % MCV 103.5 H (80.0-100.0) fL Lymphocytes # 0.9 L (1.0-4.8) k/uL APTT 21.5 L (22.0-30.0) sec Glucose (74-99) mg/dL Calcium (8.4-10.2) mg/dL Urine Appearance (Clear) Urine Protein (Negative) Urine Ketones (Negative) Urine Blood (Negative) Ur Leukocyte Esterase (Negative) Urine RBC (0-5) /hpf Urine WBC (0-5) /hpf Urine WBC Clumps (None) /hpf Amorphous Sediment (None) /hpf Urine Bacteria (None) /hpf Urine Mucus (None) /hpf Influenza Type A (PCR) Detected A (Not Detectd) 02/17/22 02/17/22 Range/Units 14:53 14:53 RBC (3.80-5.40) m/uL Hgb (11.4-16.0) gm/dL Hct (34.0-46.0) % MCV (80.0-100.0) fL Lymphocytes # (1.0-4.8) k/uL APTT (22.0-30.0) sec Glucose 175 H (74-99) mg/dL Calcium 8.1 L (8.4-10.2) mg/dL Urine Appearance Turbid H (Clear) Urine Protein 2+ H (Negative) Urine Ketones 2+ H (Negative) Urine Blood Moderate H (Negative) Ur Leukocyte Esterase Large H (Negative) Urine RBC 44 H (0-5) /hpf Urine WBC >182 H (0-5) /hpf Urine WBC Clumps Many H (None) /hpf Amorphous Sediment Rare H (None) /hpf Urine Bacteria Few H (None) /hpf Urine Mucus Few H (None) /hpf Influenza Type A (PCR) (Not Detectd) Microbiology - Last 24 Hours (Table) 02/17/22 14:53 Urine Culture - Preliminary Urine,Catheterized Thrombosis Risk Factor Assmnt - Choose All That Apply Each Factor Represents 1 point: Obesity (BMI >25), Swollen legs (current) Each Risk Factor Represents 3 Points: Age 75 years or older Other congenital or acquired thrombophilia - If yes, enter type in comment: No Thrombosis Risk Factor Assessment Total Risk Factor Score: 5 Thrombosis Risk Factor Assessment Level: High Risk
[2022-02-18] MEDS: CLOPIDOGREL 75 MG TAB PO SCH (20:39)
[2022-02-18] MEDS: TEMAZEPAM 15 MG CAP PO PRN (23:03)
[2022-02-19] MEDS: LEVOTHYROXINE 50 MCG TAB PO SCH (05:32)
[2022-02-19] MEDS: LOSARTAN 50 MG TAB PO SCH (08:44)
[2022-02-19] MEDS: busPIRone HCl 5 MG TAB PO SCH ×2 (08:44→20:37)
[2022-02-19] MEDS: TICAGRELOR 90 MG TAB PO SCH ×2 (08:44→20:38)
[2022-02-19] MEDS: ENOXAPARIN 40 MG/0.4 ML SYRINGE SQ SCH (08:44)
[2022-02-19] MEDS: ASPIRIN 81 MG PO SCH (08:44)
[2022-02-19] MEDS: ESCITALOPRAM 20 MG TAB PO SCH (08:44)
[2022-02-19] MEDS: OSELTAMIVIR 75 MG CAP PO SCH ×2 (08:45→20:38)
[2022-02-19] MEDS: ATORVASTATIN 10 MG TAB PO SCH (08:45)
[2022-02-19] MEDS: FOLIC ACID 1 MG TAB PO SCH (08:47)
[2022-02-19] MEDS: NYSTATIN 100,000UNIT/GM CREAM 30 GM TUBE TOPICAL SCH ×2 (08:47→20:51)
[2022-02-19] MEDS: SODIUM CHLORIDE 0.9% 1,000 ML IV SCH ×3 (10:24→18:35)
--- NOTE | 2022-02-19 19:20 | P.PN ---
Progress Note - Text Progress Note Date: 02/19/22 Chief Complaint: Congested cough This is a 81-year-old patient who follows with Dr. Darling from visiting physicians. History is obtained by the son Chago Morataya at the bedside. Chronic stable medical conditions include hyperlipidemia, hypertension, aortic, hypothyroid. Patient lives at the [facility]. Patient for last 10 days has been using a wheelchair. Had a fall prior to that. Before that she was using no walker. Has underlying dementia. For last 2 days patient become increasingly cough congested confused. Occasionally answering questions. Tested positive for influenza a, another resident at the [facility] had the same. Not eating anything. Refusing medications. Patient has still not able to give much of history. Will occasionally answer question. 02/19/2022: Decreased in congested cough. Eating small amounts. Less delirious. Bit more alert. Afebrile. Ensure added. Taking her medications. Active Medications Acetaminophen (Acetaminophen Tab 325 Mg Tab) 650 mg PO Q6HR PRN PRN Reason: Mild Pain or Fever > 100.5 Alprazolam (Alprazolam 0.5 Mg Tab) 0.5 mg PO TID PRN PRN Reason: Anxiety Aspirin (Aspirin 81 Mg) 81 mg PO DAILY [facility] Last Admin: 02/19/22 08:44 Dose: 81 mg Atorvastatin Calcium (Atorvastatin 10 Mg Tab) 10 mg PO DAILY [facility] Last Admin: 02/19/22 08:45 Dose: 10 mg Buspirone HCl (Buspirone Hcl 5 Mg Tab) 7.5 mg PO BID [facility] Last Admin: 02/19/22 08:44 Dose: 7.5 mg Clopidogrel Bisulfate (Clopidogrel 75 Mg Tab) 75 mg PO HS [facility] Last Admin: 02/18/22 20:39 Dose: 75 mg Enoxaparin Sodium (Enoxaparin 40 Mg/0.4 Ml Syringe) 40 mg SQ DAILY [facility] Last Admin: 02/19/22 08:44 Dose: 40 mg Escitalopram Oxalate (Escitalopram 20 Mg Tab) 20 mg PO DAILY [facility] Last Admin: 02/19/22 08:44 Dose: 20 mg Folic Acid (Folic Acid 1 Mg Tab) 1 mg PO DAILY [facility] Last Admin: 02/19/22 08:47 Dose: 1 mg Sodium Chloride (Saline 0.9%) 1,000 mls @ 20 mls/hr IV .Q24H [facility] Last Admin: 02/19/22 18:34 Dose: Not Given Ceftriaxone Sodium 1 gm/ (Sodium Chloride) 50 mls @ 100 mls/hr IVPB Q12HR [facility]; Protocol Last Admin: 02/19/22 08:44 Dose: 100 mls/hr Sodium Chloride (Saline 0.9%) 1,000 mls @ 100 mls/hr IV .Q10H [facility] Last Admin: 02/19/22 18:35 Dose: Not Given Lactulose (Lactulose 20 Gm/30 Ml Cup) 20 gm PO DAILY PRN PRN Reason: Constipation Levothyroxine Sodium (Levothyroxine 50 Mcg Tab) 50 mcg PO DAILY@0630 [facility] Last Admin: 02/19/22 05:32 Dose: 50 mcg Lorazepam (Lorazepam 2 Mg/Ml Inj) 0.5 mg IV Q6HR PRN PRN Reason: Anxiety Losartan Potassium (Losartan 50 Mg Tab) 50 mg PO DAILY [facility] Last Admin: 02/19/22 08:44 Dose: 50 mg Magnesium Hydroxide (Magnesium Hydroxide 2,400 Mg/10 Ml Cup) 2,400 mg PO HS PRN PRN Reason: Constipation Naloxone HCl (Naloxone 0.4 Mg/Ml 1 Ml Vial) 0.2 mg IV Q2M PRN PRN Reason: Opioid Reversal Nystatin (Nystatin 100,000unit/Gm Cream 30 Gm Tube) 1 applic TOPICAL BID [facility]; Protocol Last Admin: 02/19/22 08:47 Dose: 1 applic Ondansetron HCl (Ondansetron 4 Mg/2 Ml Vial) 4 mg IVP Q8HR PRN PRN Reason: Nausea And Vomiting Oseltamivir Phosphate (Oseltamivir 75 Mg Cap) 75 mg PO Q12HR [facility]; Protocol Stop: 02/22/22 09:01 Last Admin: 02/19/22 08:45 Dose: 75 mg Temazepam (Temazepam 15 Mg Cap) 15 mg PO HS PRN PRN Reason: Insomnia Last Admin: 02/18/22 23:03 Dose: 15 mg Ticagrelor (Ticagrelor 90 Mg Tab) 90 mg PO BID [facility] Last Admin: 02/19/22 08:44 Dose: 90 mg Past medical history to include: Hyperlipidemia, TIA, hypertension, RA, hypothyroid, hepatitis Social history: Lives at [facility]. Previous smoker. No alcohol. Patient's son Chago Morataya is the POA Physical examination: VITAL SIGNS: 98.5, 78, 19, 140/64, 96% room air GENERAL: BMI 24, reclining in bed bouts of coughing. EYES: Pupils equal. Conjunctiva normal. HEENT: External appearance of nose and ears normal, oral cavity-dry mucous membranes NECK: JVD not raised; masses not palpable. HEART: First and second heart sounds are normal; no edema. LUNGS: Respiratory rate increased, decreased breath sounds , decreased wheezing ABDOMEN: Soft, nontender, liver spleen not palpable, no masses palpable. PSYCH: Patient didn't tell her name, otherwise fluctuating sensoriuml. MUSCULOSKELETAL:No Clubbing/cyanosis;muscles-grossly intact. OA INVESTIGATIONS, reviewed in the clinical context: White count 8 hemoglobin 11.1 platelets 370 potassium 3.6 creatinine 0.53 UA positive for protein 2+ ketones 2+ leukoesterase, WBC clumps, bacteria Influenza type A detected [influenza type B/RSV/COVID-19: Not detected] EKG tracing personally reviewed by me-normal sinus rhythm. Nonspecific T-wave changes. Chest x-ray film personally reviewed by me-fleeting infiltrates Assessment and plan: -Acute influenza A pneumonitis, patient was taking Tamiflu at the [facility]. 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 On feeding with assistance. IV fluids. Tamiflu. Resume home medications. Care was discussed the patient. Questions answered. Advance care planning: Discussed with the son at the bedside. He is also the patient's POA decision- maker.. Given patient's age and comorbidities increased to be DO NOT RESUSCITATE. Questions answered.
[2022-02-19] MEDS: CLOPIDOGREL 75 MG TAB PO SCH (20:38)
[2022-02-20] MEDS: SODIUM CHLORIDE 0.9% 1,000 ML IV SCH ×2 (04:12→14:48)
[2022-02-20 05:31] LABS: Basophils % (A) 0 %; Eosinophils # (A) 0.1 k/uL (0-0.7); Eosinophils % (A) 1 %; HCT 26.2 % (34.0-46.0); Hypochromasia Slight; Lymphocytes # (A) 1.6 k/uL (1.0-4.8); Lymphocytes % (A) 19 %; MCV 102.9 fL (80.0-100.0); Macrocytosis Slight; Monocytes # (A) 0.4 k/uL (0-1.0); Monocytes % (A) 5 %; Neutrophils # (A) 6.4 k/uL (1.3-7.7); Neutrophils % (A) 74 %; Platelet Count 284 k/uL (150-450); RBC 2.55 m/uL (3.80-5.40); RDW 15.6 % (11.5-15.5); WBC 8.7 k/uL (3.8-10.6)
[2022-02-20 05:32] LABS: HGB 8.9 gm/dL (11.4-16.0)
[2022-02-20] MEDS: LEVOTHYROXINE 50 MCG TAB PO SCH (05:41)
[2022-02-20 05:44] LABS: African American GFR (CKD) >90 (>60 ml/min/1.73 sqM); Anion Gap 3 mmol/L; Blood Urea Nitrogen 3 mg/dL (7-17); Carbon Dioxide 28 mmol/L (22-30); Chloride 104 mmol/L (98-107); Glucose 83 mg/dL (74-99); Non-African American GFR(CKD) >90 (>60 ml/min/1.73 sqM); Sodium 135 mmol/L (137-145)
[2022-02-20 06:16] LABS: Potassium 2.6 mmol/L (3.5-5.1)
[2022-02-20] MEDS: POTASSIUM BICARBONATE/CIT AC 20 MEQ TABLET.EFF PO SCH ×3 (06:34→14:43)
[2022-02-20] MEDS: ESCITALOPRAM 20 MG TAB PO SCH (10:34)
[2022-02-20] MEDS: ENOXAPARIN 40 MG/0.4 ML SYRINGE SQ SCH (10:34)
[2022-02-20] MEDS: busPIRone HCl 5 MG TAB PO SCH ×2 (10:34→20:50)
[2022-02-20] MEDS: ATORVASTATIN 10 MG TAB PO SCH (10:34)
[2022-02-20] MEDS: LOSARTAN 50 MG TAB PO SCH (10:34)
[2022-02-20] MEDS: TICAGRELOR 90 MG TAB PO SCH ×2 (10:35→20:51)
[2022-02-20] MEDS: OSELTAMIVIR 75 MG CAP PO SCH ×2 (10:46→20:51)
[2022-02-20] MEDS: ASPIRIN 81 MG PO SCH (10:46)
[2022-02-20] MEDS: FOLIC ACID 1 MG TAB PO SCH (10:46)
[2022-02-20] MEDS: NYSTATIN 100,000UNIT/GM CREAM 30 GM TUBE TOPICAL SCH ×2 (12:12→21:03)
--- NOTE | 2022-02-20 14:04 | P.PN ---
Progress Note - Text Progress Note Date: 02/20/22 Chief Complaint: Congested cough This is a 81-year-old patient who follows with Dr. Darling from visiting physicians. History is obtained by the son Chago Morataya at the bedside. Chronic stable medical conditions include hyperlipidemia, hypertension, aortic, hypothyroid. Patient lives at the [facility]. Patient for last 10 days has been using a wheelchair. Had a fall prior to that. Before that she was using no walker. Has underlying dementia. For last 2 days patient become increasingly cough congested confused. Occasionally answering questions. Tested positive for influenza a, another resident at the [facility] had the same. Not eating anything. Refusing medications. Patient has still not able to give much of history. Will occasionally answer question. 02/19/2022: Decreased in congested cough. Eating small amounts. Less delirious. Bit more alert. Afebrile. Ensure added. Taking her medications. 02/20/2022: Remains a bit delirious. Has to be cajoled to eat a bit. Likes ice cream. Spoke to the nurse. At Ensure. Continue IV fluids. IV ceftriaxone. Active Medications Acetaminophen (Acetaminophen Tab 325 Mg Tab) 650 mg PO Q6HR PRN PRN Reason: Mild Pain or Fever > 100.5 Alprazolam (Alprazolam 0.5 Mg Tab) 0.5 mg PO TID PRN PRN Reason: Anxiety Aspirin (Aspirin 81 Mg) 81 mg PO DAILY [facility] Last Admin: 02/20/22 10:46 Dose: Not Given Atorvastatin Calcium (Atorvastatin 10 Mg Tab) 10 mg PO DAILY [facility] Last Admin: 02/20/22 10:34 Dose: 10 mg Buspirone HCl (Buspirone Hcl 5 Mg Tab) 7.5 mg PO BID [facility] Last Admin: 02/20/22 10:34 Dose: 7.5 mg Clopidogrel Bisulfate (Clopidogrel 75 Mg Tab) 75 mg PO HS [facility] Last Admin: 02/19/22 20:38 Dose: 75 mg Enoxaparin Sodium (Enoxaparin 40 Mg/0.4 Ml Syringe) 40 mg SQ DAILY [facility] Last Admin: 02/20/22 10:34 Dose: 40 mg Escitalopram Oxalate (Escitalopram 20 Mg Tab) 20 mg PO DAILY [facility] Last Admin: 02/20/22 10:34 Dose: 20 mg Folic Acid (Folic Acid 1 Mg Tab) 1 mg PO DAILY [facility] Last Admin: 02/20/22 10:46 Dose: Not Given Sodium Chloride (Saline 0.9%) 1,000 mls @ 20 mls/hr IV .Q24H [facility] Last Admin: 02/19/22 18:34 Dose: Not Given Ceftriaxone Sodium 1 gm/ (Sodium Chloride) 50 mls @ 100 mls/hr IVPB Q12HR [facility]; Protocol Last Admin: 02/20/22 10:21 Dose: 100 mls/hr Sodium Chloride (Saline 0.9%) 1,000 mls @ 100 mls/hr IV .Q10H [facility] Last Admin: 02/20/22 04:12 Dose: 100 mls/hr Lactulose (Lactulose 20 Gm/30 Ml Cup) 20 gm PO DAILY PRN PRN Reason: Constipation Levothyroxine Sodium (Levothyroxine 50 Mcg Tab) 50 mcg PO DAILY@0630 [facility] Last Admin: 02/20/22 05:41 Dose: 50 mcg Lorazepam (Lorazepam 2 Mg/Ml Inj) 0.5 mg IV Q6HR PRN PRN Reason: Anxiety Losartan Potassium (Losartan 50 Mg Tab) 50 mg PO DAILY [facility] Last Admin: 02/20/22 10:34 Dose: 50 mg Magnesium Hydroxide (Magnesium Hydroxide 2,400 Mg/10 Ml Cup) 2,400 mg PO HS PRN PRN Reason: Constipation Naloxone HCl (Naloxone 0.4 Mg/Ml 1 Ml Vial) 0.2 mg IV Q2M PRN PRN Reason: Opioid Reversal Nystatin (Nystatin 100,000unit/Gm Cream 30 Gm Tube) 1 applic TOPICAL BID [facility]; Protocol Last Admin: 02/20/22 12:12 Dose: Not Given Ondansetron HCl (Ondansetron 4 Mg/2 Ml Vial) 4 mg IVP Q8HR PRN PRN Reason: Nausea And Vomiting Oseltamivir Phosphate (Oseltamivir 75 Mg Cap) 75 mg PO Q12HR [facility]; Protocol Stop: 02/22/22 09:01 Last Admin: 02/20/22 10:46 Dose: Not Given Temazepam (Temazepam 15 Mg Cap) 15 mg PO HS PRN PRN Reason: Insomnia Last Admin: 02/18/22 23:03 Dose: 15 mg Ticagrelor (Ticagrelor 90 Mg Tab) 90 mg PO BID [facility] Last Admin: 02/20/22 10:35 Dose: 90 mg Past medical history to include: Hyperlipidemia, TIA, hypertension, RA, hypothyroid, hepatitis Social history: Lives at [facility]. Previous smoker. No alcohol. Patient's son Chago Morataya is the POA Physical examination: VITAL SIGNS: 98.2, 86, 20, 1 47 x 69, 92% room air GENERAL: Awake, confused, cough EYES: Pupils equal. Conjunctiva normal. HEENT: External appearance of nose and ears normal, oral cavity-dry mucous membranes NECK: JVD not raised; masses not palpable. HEART: First and second heart sounds are normal; no edema. LUNGS: Respiratory rate increased, decreased breath sounds , some wheezing ABDOMEN: Soft, nontender, liver spleen not palpable, no masses palpable. PSYCH: Able to answer some questions MUSCULOSKELETAL:No Clubbing/cyanosis;muscles-grossly intact. OA INVESTIGATIONS, reviewed in the clinical context: February 20: White count 8.7 hemoglobin 8.9 potassium 2.6 creatinine 0.33 White count 8 hemoglobin 11.1 platelets 370 potassium 3.6 creatinine 0.53 UA positive for protein 2+ ketones 2+ leukoesterase, WBC clumps, bacteria Influenza type A detected [influenza type B/RSV/COVID-19: Not detected] EKG tracing personally reviewed by me-normal sinus rhythm. Nonspecific T-wave changes. Chest x-ray film personally reviewed by me-fleeting infiltrates Assessment and plan: -Acute influenza A pneumonitis, patient was taking Tamiflu at the [facility]. 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 feeding with assistance. IV fluids. Tamiflu. Not ready for discharge.
[2022-02-20] MEDS ORDERED: DEXTROSE 5%-0.9% NACL 1,000 ML IV SCH (15:00)
[2022-02-20] MEDS: LACTATED RINGERS 1,000 ML IV SCH (20:48)
[2022-02-20] MEDS: POTASSIUM BICARB-CITRIC ACID 25 MEQ TABLET.EFF PO SCH ×3 (20:49→22:50)
[2022-02-20] MEDS: CLOPIDOGREL 75 MG TAB PO SCH (20:50)
[2022-02-21] MEDS: ALPRAZolam 0.5 MG TAB PO PRN (04:52)
[2022-02-21] MEDS: LEVOTHYROXINE 50 MCG TAB PO SCH (05:39)
[2022-02-21] MEDS: LACTATED RINGERS 1,000 ML IV SCH ×3 (05:40→23:30)
[2022-02-21 06:43] LABS: African American GFR (CKD) >90 (>60 ml/min/1.73 sqM); Anion Gap 4 mmol/L; Blood Urea Nitrogen <2 mg/dL (7-17); Calcium 6.9 mg/dL (8.4-10.2); Carbon Dioxide 29 mmol/L (22-30); Chloride 104 mmol/L (98-107); Glucose 123 mg/dL (74-99); Non-African American GFR(CKD) >90 (>60 ml/min/1.73 sqM); Potassium 4.4 mmol/L (3.5-5.1); Sodium 137 mmol/L (137-145)
[2022-02-21] MEDS: NYSTATIN 100,000UNIT/GM CREAM 30 GM TUBE TOPICAL SCH ×2 (09:50→21:26)
[2022-02-21] MEDS: LOSARTAN 50 MG TAB PO SCH (09:51)
[2022-02-21] MEDS: OSELTAMIVIR 75 MG CAP PO SCH ×2 (09:51→21:25)
[2022-02-21] MEDS: busPIRone HCl 5 MG TAB PO SCH ×2 (09:51→21:25)
[2022-02-21] MEDS: ESCITALOPRAM 20 MG TAB PO SCH (09:51)
[2022-02-21] MEDS: FOLIC ACID 1 MG TAB PO SCH (09:51)
[2022-02-21] MEDS: ENOXAPARIN 40 MG/0.4 ML SYRINGE SQ SCH (09:51)
[2022-02-21] MEDS: ASPIRIN 81 MG PO SCH (09:52)
[2022-02-21] MEDS: TICAGRELOR 90 MG TAB PO SCH ×2 (09:52→21:25)
[2022-02-21] MEDS: ATORVASTATIN 10 MG TAB PO SCH (09:52)
--- NOTE | 2022-02-21 16:58 | P.PN ---
Progress Note - Text Progress Note Date: 02/21/22 Chief Complaint: Congested cough This is a 81-year-old patient who follows with Dr. Darling from visiting physicians. History is obtained by the son Chago Morataya at the bedside. Chronic stable medical conditions include hyperlipidemia, hypertension, aortic, hypothyroid. Patient lives at the [facility]. Patient for last 10 days has been using a wheelchair. Had a fall prior to that. Before that she was using no walker. Has underlying dementia. For last 2 days patient become increasingly cough congested confused. Occasionally answering questions. Tested positive for influenza a, another resident at the [facility] had the same. Not eating anything. Refusing medications. Patient has still not able to give much of history. Will occasionally answer question. 02/19/2022: Decreased in congested cough. Eating small amounts. Less delirious. Bit more alert. Afebrile. Ensure added. Taking her medications. 02/20/2022: Remains a bit delirious. Has to be cajoled to eat a bit. Likes ice cream. Spoke to the nurse. At Ensure. Continue IV fluids. IV ceftriaxone. 02/21/2022: Remains delirious. Eating small amounts. Coughing intermittently. Getting IV ceftriaxone. IV fluids. Active Medications Acetaminophen (Acetaminophen Tab 325 Mg Tab) 650 mg PO Q6HR PRN PRN Reason: Mild Pain or Fever > 100.5 Last Admin: 02/20/22 21:00 Dose: 650 mg Alprazolam (Alprazolam 0.5 Mg Tab) 0.5 mg PO TID PRN PRN Reason: Anxiety Last Admin: 02/21/22 04:52 Dose: 0.5 mg Aspirin (Aspirin 81 Mg) 81 mg PO DAILY [facility] Last Admin: 02/21/22 09:52 Dose: 81 mg Atorvastatin Calcium (Atorvastatin 10 Mg Tab) 10 mg PO DAILY [facility] Last Admin: 02/21/22 09:52 Dose: 10 mg Buspirone HCl (Buspirone Hcl 5 Mg Tab) 7.5 mg PO BID [facility] Last Admin: 02/21/22 09:51 Dose: 7.5 mg Clopidogrel Bisulfate (Clopidogrel 75 Mg Tab) 75 mg PO HS [facility] Last Admin: 02/20/22 20:50 Dose: 75 mg Enoxaparin Sodium (Enoxaparin 40 Mg/0.4 Ml Syringe) 40 mg SQ DAILY [facility] Last Admin: 02/21/22 09:51 Dose: 40 mg Escitalopram Oxalate (Escitalopram 20 Mg Tab) 20 mg PO DAILY [facility] Last Admin: 02/21/22 09:51 Dose: 20 mg Folic Acid (Folic Acid 1 Mg Tab) 1 mg PO DAILY [facility] Last Admin: 02/21/22 09:51 Dose: 1 mg Ceftriaxone Sodium 1 gm/ (Sodium Chloride) 50 mls @ 100 mls/hr IVPB Q12HR [facility]; Protocol Last Admin: 02/21/22 09:52 Dose: 100 mls/hr Lactated Ringer's (Lactated Ringers) 1,000 mls @ 100 mls/hr IV .Q10H [facility] Last Admin: 02/21/22 15:24 Dose: 100 mls/hr Lactulose (Lactulose 20 Gm/30 Ml Cup) 20 gm PO DAILY PRN PRN Reason: Constipation Levothyroxine Sodium (Levothyroxine 50 Mcg Tab) 50 mcg PO DAILY@0630 [facility] Last Admin: 02/21/22 05:39 Dose: 50 mcg Lorazepam (Lorazepam 2 Mg/Ml Inj) 0.5 mg IV Q6HR PRN PRN Reason: Anxiety Losartan Potassium (Losartan 50 Mg Tab) 50 mg PO DAILY [facility] Last Admin: 02/21/22 09:51 Dose: 50 mg Magnesium Hydroxide (Magnesium Hydroxide 2,400 Mg/10 Ml Cup) 2,400 mg PO HS PRN PRN Reason: Constipation Naloxone HCl (Naloxone 0.4 Mg/Ml 1 Ml Vial) 0.2 mg IV Q2M PRN PRN Reason: Opioid Reversal Nystatin (Nystatin 100,000unit/Gm Cream 30 Gm Tube) 1 applic TOPICAL BID [facility]; Protocol Last Admin: 02/21/22 09:50 Dose: 1 applic Ondansetron HCl (Ondansetron 4 Mg/2 Ml Vial) 4 mg IVP Q8HR PRN PRN Reason: Nausea And Vomiting Oseltamivir Phosphate (Oseltamivir 75 Mg Cap) 75 mg PO Q12HR [facility]; Protocol Stop: 02/22/22 09:01 Last Admin: 02/21/22 09:51 Dose: 75 mg Temazepam (Temazepam 15 Mg Cap) 15 mg PO HS PRN PRN Reason: Insomnia Last Admin: 02/18/22 23:03 Dose: 15 mg Ticagrelor (Ticagrelor 90 Mg Tab) 90 mg PO BID [facility] Last Admin: 02/21/22 09:52 Dose: 90 mg Past medical history to include: Hyperlipidemia, TIA, hypertension, RA, hypothyroid, hepatitis Social history: Lives at [facility]. Previous smoker. No alcohol. Patient's son Chago Morataya is the POA Physical examination: VITAL SIGNS: 98.1, 89, 16, 160/99, 95% room air GENERAL: Awake, delirious, cough EYES: Pupils equal. Conjunctiva normal. HEENT: External appearance of nose and ears normal, oral cavity-dry mucous membranes NECK: JVD not raised; masses not palpable. HEART: First and second heart sounds are normal; no edema. LUNGS: Respiratory rate increased, decreased breath sounds , some wheezing ABDOMEN: Soft, nontender, liver spleen not palpable, no masses palpable. PSYCH: Able to answer some questions MUSCULOSKELETAL:No Clubbing/cyanosis;muscles-grossly intact. OA INVESTIGATIONS, reviewed in the clinical context: 02/21/2022: Potassium 4.4 creatinine 0.3 to February 20: White count 8.7 hemoglobin 8.9 potassium 2.6 creatinine 0.33 White count 8 hemoglobin 11.1 platelets 370 potassium 3.6 creatinine 0.53 UA positive for protein 2+ ketones 2+ leukoesterase, WBC clumps, bacteria Influenza type A detected [influenza type B/RSV/COVID-19: Not detected] EKG tracing personally reviewed by me-normal sinus rhythm. Nonspecific T-wave changes. 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 feeding with assistance. IV fluids. Tamiflu. She remains delirio us.
[2022-02-21] MEDS: CLOPIDOGREL 75 MG TAB PO SCH (21:25)
[2022-02-21] MEDS: TEMAZEPAM 15 MG CAP PO PRN (21:33)
[2022-02-22] MEDS: LEVOTHYROXINE 50 MCG TAB PO SCH (05:40)
[2022-02-22] MEDS: ASPIRIN 81 MG PO SCH (09:04)
[2022-02-22] MEDS: ENOXAPARIN 40 MG/0.4 ML SYRINGE SQ SCH (09:04)
[2022-02-22] MEDS: LOSARTAN 50 MG TAB PO SCH (09:04)
[2022-02-22] MEDS: busPIRone HCl 5 MG TAB PO SCH ×2 (09:04→21:03)
[2022-02-22] MEDS: ESCITALOPRAM 20 MG TAB PO SCH (09:05)
[2022-02-22] MEDS: ATORVASTATIN 10 MG TAB PO SCH (09:05)
[2022-02-22] MEDS: FOLIC ACID 1 MG TAB PO SCH (09:05)
[2022-02-22] MEDS: TICAGRELOR 90 MG TAB PO SCH ×2 (09:06→21:03)
[2022-02-22] MEDS: NYSTATIN 100,000UNIT/GM CREAM 30 GM TUBE TOPICAL SCH ×2 (09:07→21:03)
[2022-02-22] MEDS: OSELTAMIVIR 75 MG CAP PO SCH (09:07)
[2022-02-22] MEDS: AMOXICILLIN 250 MG/5 ML 80 ML BOTTLE PO SCH ×3 (12:12→21:38)
[2022-02-22 12:50] VITALS: BMI 24.0
[2022-02-22] MEDS: LACTATED RINGERS 1,000 ML IV SCH ×2 (12:55→21:03)
--- NOTE | 2022-02-22 16:49 | P.PN ---
Progress Note - Text Progress Note Date: 02/22/22 Chief Complaint: Congested cough This is a 81-year-old patient who follows with Dr. Darling from visiting physicians. History is obtained by the son Chago Morataya at the bedside. Chronic stable medical conditions include hyperlipidemia, hypertension, aortic, hypothyroid. Patient lives at the [facility]. Patient for last 10 days has been using a wheelchair. Had a fall prior to that. Before that she was using no walker. Has underlying dementia. For last 2 days patient become increasingly cough congested confused. Occasionally answering questions. Tested positive for influenza a, another resident at the [facility] had the same. Not eating anything. Refusing medications. Patient has still not able to give much of history. Will occasionally answer question. 02/19/2022: Decreased in congested cough. Eating small amounts. Less delirious. Bit more alert. Afebrile. Ensure added. Taking her medications. 02/20/2022: Remains a bit delirious. Has to be cajoled to eat a bit. Likes ice cream. Spoke to the nurse. At Ens[employer]. Continue IV fluids. IV ceftriaxone. 02/21/2022: Remains delirious. Eating small amounts. Coughing intermittently. Getting IV ceftriaxone. IV fluids. 02/22/2022: Confused. Decreased oral intake. Decrease cough. Urine culture growing Enterococcus faecalis. Changed over to amoxicillin. Continue IV fluids. Active Medications Acetaminophen (Acetaminophen Tab 325 Mg Tab) 650 mg PO Q6HR PRN PRN Reason: Mild Pain or Fever > 100.5 Last Admin: 02/20/22 21:00 Dose: 650 mg Alprazolam (Alprazolam 0.5 Mg Tab) 0.5 mg PO TID PRN PRN Reason: Anxiety Last Admin: 02/21/22 04:52 Dose: 0.5 mg Amoxicillin (Amoxicillin 250 Mg/5 Ml 80 Ml Bottle) 500 mg PO TID [facility]; Protocol Last Admin: 02/22/22 12:12 Dose: 500 mg Aspirin (Aspirin 81 Mg) 81 mg PO DAILY [facility] Last Admin: 02/22/22 09:04 Dose: 81 mg Atorvastatin Calcium (Atorvastatin 10 Mg Tab) 10 mg PO DAILY [facility] Last Admin: 02/22/22 09:05 Dose: 10 mg Buspirone HCl (Buspirone Hcl 5 Mg Tab) 7.5 mg PO BID [facility] Last Admin: 02/22/22 09:04 Dose: 7.5 mg Clopidogrel Bisulfate (Clopidogrel 75 Mg Tab) 75 mg PO HS [facility] Last Admin: 02/21/22 21:25 Dose: 75 mg Enoxaparin Sodium (Enoxaparin 40 Mg/0.4 Ml Syringe) 40 mg SQ DAILY [facility] Last Admin: 02/22/22 09:04 Dose: 40 mg Escitalopram Oxalate (Escitalopram 20 Mg Tab) 20 mg PO DAILY [facility] Last Admin: 02/22/22 09:05 Dose: 20 mg Folic Acid (Folic Acid 1 Mg Tab) 1 mg PO DAILY [facility] Last Admin: 02/22/22 09:05 Dose: 1 mg Lactated Ringer's (Lactated Ringers) 1,000 mls @ 100 mls/hr IV .Q10H [facility] Last Admin: 02/22/22 12:55 Dose: Not Given Lactulose (Lactulose 20 Gm/30 Ml Cup) 20 gm PO DAILY PRN PRN Reason: Constipation Levothyroxine Sodium (Levothyroxine 50 Mcg Tab) 50 mcg PO DAILY@0630 [facility] Last Admin: 02/22/22 05:40 Dose: 50 mcg Lorazepam (Lorazepam 2 Mg/Ml Inj) 0.5 mg IV Q6HR PRN PRN Reason: Anxiety Losartan Potassium (Losartan 50 Mg Tab) 50 mg PO DAILY [facility] Last Admin: 02/22/22 09:04 Dose: 50 mg Magnesium Hydroxide (Magnesium Hydroxide 2,400 Mg/10 Ml Cup) 2,400 mg PO HS PRN PRN Reason: Constipation Naloxone HCl (Naloxone 0.4 Mg/Ml 1 Ml Vial) 0.2 mg IV Q2M PRN PRN Reason: Opioid Reversal Nystatin (Nystatin 100,000unit/Gm Cream 30 Gm Tube) 1 applic TOPICAL BID [facility]; Protocol Last Admin: 02/22/22 09:07 Dose: 1 applic Ondansetron HCl (Ondansetron 4 Mg/2 Ml Vial) 4 mg IVP Q8HR PRN PRN Reason: Nausea And Vomiting Temazepam (Temazepam 15 Mg Cap) 15 mg PO HS PRN PRN Reason: Insomnia Last Admin: 02/21/22 21:33 Dose: 15 mg Ticagrelor (Ticagrelor 90 Mg Tab) 90 mg PO BID [facility] Last Admin: 02/22/22 09:06 Dose: 90 mg Past medical history to include: Hyperlipidemia, TIA, hypertension, RA, hypothyroid, hepatitis Social history: Lives at [facility]. Previous smoker. No alcohol. Patient's son Chago Morataya is the POA Physical examination: VITAL SIGNS: 98.7, 92, 16, 03/09/1990, 92% room air GENERAL: Confused, decreased cough EYES: Pupils equal. Conjunctiva normal. HEENT: External appearance of nose and ears normal, oral cavity-dry mucous membranes NECK: JVD not raised; masses not palpable. HEART: First and second heart sounds are normal; no edema. LUNGS: Respiratory rate increased, decreased breath sounds , some wheezing ABDOMEN: Soft, nontender, liver spleen not palpable, no masses palpable. PSYCH: Able to answer some questions MUSCULOSKELETAL:No Clubbing/cyanosis;muscles-grossly intact. OA INVESTIGATIONS, reviewed in the clinical context: Urine culture: Enterococcus faecalis 02/21/2022: Potassium 4.4 creatinine 0.3 to February 20: White count 8.7 hemoglobin 8.9 potassium 2.6 creatinine 0.33 White count 8 hemoglobin 11.1 platelets 370 potassium 3.6 creatinine 0.53 UA positive for protein 2+ ketones 2+ leukoesterase, WBC clumps, bacteria Influenza type A detected [influenza type B/RSV/COVID-19: Not detected] EKG tracing personally reviewed by me-normal sinus rhythm. Nonspecific T-wave changes. 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 feeding with assistance. IV fluids. Tamiflu. Change antibiotic to amoxicillin.
--- NOTE | 2022-02-22 17:02 | CDI ---
Documentation Clarification Form Date: 02/22/2022 4:43:33 PM From: Lesvia Forrester RN CCDS Admit Date: 02/17/2022 4:59:00 PM Patient Name: Amisha Benitez Visit Number: [id number] Discharge Date: ATTENTION: The Clinical Documentation Specialists (CDI) and [facility] Coding Staff appreciate your assistance in clarifying documentation. Please respond to the clarification below the line at the bottom and electronically sign. The CDI & [facility] Coding staff will review the response and follow-up if needed. Please note: Queries are made part of the Legal Health Record. If you have any questions, please contact the author of this message via ITS. Dr. Basil Krishnamurthy Your patient has the documented symptom of Delirium 02/18, H&P. Additional clarification regarding the etiology/cause of this symptom is requested. History/Risk Factors: 81-year-old female presents to the ED with Altered Mental Status not getting out of bed for a couple of days with increased confusion. There is a Influenza outbreak at the [facility] home. Medical History: CVA/TIA; HLD; HTN and RA. ED note, 02/17. Clinical Indicators: Labs: 02/17 Wbc 8.0; Lymphocytes 0.9; Glucose 175; Calcium 8.1 Procalcitonin 0.24; Influenza A Detected; Urine culture: Enterococcus faecalis Chest XR: Small posterior infiltrate or pleural effusion. Prominent vascular markings. Brain CT: 02/17 Chronic appearing periventricular white matter ischemic type changes, stable from comparison. Mucosal thickening throughout multiple paranasal sinuses. Treatment: 02/[address]; 02/17 0.9ns IV 500cc/bolus; 02/17 Rocephin IVP x 1; 02/17 02/22 Tamiflu PO Q12H; 02/18 02/22 Ceftriaxone IVPB Q12H; 02/22 Amoxicillin PO TID. Please clarify the etiology of the symptom of Delirium: [ ] Metabolic Encephalopathy due to Influenza and UTI [ ] Other condition (please specify) [ ] Unable to determine (Template Last Revised: March 2020) Acute metabolic encephalopathy with delirium from influenza and UTI MTDD
[2022-02-22] MEDS: CLOPIDOGREL 75 MG TAB PO SCH (21:03)
[2022-02-22] MEDS: TEMAZEPAM 15 MG CAP PO PRN (21:03)
[2022-02-23] MEDS: LEVOTHYROXINE 50 MCG TAB PO SCH (06:17)
[2022-02-23] MEDS: FOLIC ACID 1 MG TAB PO SCH (09:02)
[2022-02-23] MEDS: busPIRone HCl 5 MG TAB PO SCH ×2 (09:02→21:28)
[2022-02-23] MEDS: ASPIRIN 81 MG PO SCH (09:02)
[2022-02-23] MEDS: ENOXAPARIN 40 MG/0.4 ML SYRINGE SQ SCH (09:03)
[2022-02-23] MEDS: TICAGRELOR 90 MG TAB PO SCH ×2 (09:03→21:29)
[2022-02-23] MEDS: AMOXICILLIN 250 MG/5 ML 80 ML BOTTLE PO SCH ×3 (09:03→21:27)
[2022-02-23] MEDS: ESCITALOPRAM 20 MG TAB PO SCH (09:03)
[2022-02-23] MEDS: ATORVASTATIN 10 MG TAB PO SCH (09:03)
[2022-02-23] MEDS: LOSARTAN 50 MG TAB PO SCH (09:03)
[2022-02-23] MEDS: LACTATED RINGERS 1,000 ML IV SCH ×2 (09:05→16:38)
[2022-02-23] MEDS: NYSTATIN 100,000UNIT/GM CREAM 30 GM TUBE TOPICAL SCH ×2 (09:05→21:29)
[2022-02-23 13:04] LABS: African American GFR (CKD) >90 (>60 ml/min/1.73 sqM); Anion Gap 3 mmol/L; Blood Urea Nitrogen <2 mg/dL (7-17); Calcium 7.5 mg/dL (8.4-10.2); Carbon Dioxide 27 mmol/L (22-30); Chloride 104 mmol/L (98-107); Glucose 91 mg/dL (74-99); Non-African American GFR(CKD) >90 (>60 ml/min/1.73 sqM); Potassium 3.5 mmol/L (3.5-5.1); Sodium 134 mmol/L (137-145)
--- NOTE | 2022-02-23 18:44 | P.PN ---
Progress Note - Text Progress Note Date: 02/23/22 Chief Complaint: Congested cough This is a 81-year-old patient who follows with Dr. Darling from visiting physicians. History is obtained by the son Chago Morataya at the bedside. Chronic stable medical conditions include hyperlipidemia, hypertension, aortic, hypothyroid. Patient lives at the [facility]. Patient for last 10 days has been using a wheelchair. Had a fall prior to that. Before that she was using no walker. Has underlying dementia. For last 2 days patient become increasingly cough congested confused. Occasionally answering questions. Tested positive for influenza a, another resident at the [facility] had the same. Not eating anything. Refusing medications. Patient has still not able to give much of history. Will occasionally answer question. 02/19/2022: Decreased in congested cough. Eating small amounts. Less delirious. Bit more alert. Afebrile. Ensure added. Taking her medications. 02/20/2022: Remains a bit delirious. Has to be cajoled to eat a bit. Likes ice cream. Spoke to the nurse. At Ens[facility]. Continue IV fluids. IV ceftriaxone. 02/21/2022: Remains delirious. Eating small amounts. Coughing intermittently. Getting IV ceftriaxone. IV fluids. 02/22/2022: Confused. Decreased oral intake. Decrease cough. Urine culture growing Enterococcus faecalis. Changed over to amoxicillin. Continue IV fluids. 02/23/2022: Eating a bit better. Less delirious. Patient is clinically confused. On oral amoxicillin. Cooperative. Patient to return to [facility] tomorrow. Active Medications Acetaminophen (Acetaminophen Tab 325 Mg Tab) 650 mg PO Q6HR PRN PRN Reason: Mild Pain or Fever > 100.5 Last Admin: 02/20/22 21:00 Dose: 650 mg Alprazolam (Alprazolam 0.5 Mg Tab) 0.5 mg PO TID PRN PRN Reason: Anxiety Last Admin: 02/21/22 04:52 Dose: 0.5 mg Amoxicillin (Amoxicillin 250 Mg/5 Ml 80 Ml Bottle) 500 mg PO TID [facility]; Protocol Last Admin: 02/23/22 16:37 Dose: 500 mg Aspirin (Aspirin 81 Mg) 81 mg PO DAILY [facility] Last Admin: 02/23/22 09:02 Dose: 81 mg Atorvastatin Calcium (Atorvastatin 10 Mg Tab) 10 mg PO DAILY [facility] Last Admin: 02/23/22 09:03 Dose: 10 mg Buspirone HCl (Buspirone Hcl 5 Mg Tab) 7.5 mg PO BID [facility] Last Admin: 02/23/22 09:02 Dose: 7.5 mg Clopidogrel Bisulfate (Clopidogrel 75 Mg Tab) 75 mg PO HS [facility] Last Admin: 02/22/22 21:03 Dose: 75 mg Enoxaparin Sodium (Enoxaparin 40 Mg/0.4 Ml Syringe) 40 mg SQ DAILY [facility] Last Admin: 02/23/22 09:03 Dose: 40 mg Escitalopram Oxalate (Escitalopram 20 Mg Tab) 20 mg PO DAILY [facility] Last Admin: 02/23/22 09:03 Dose: 20 mg Folic Acid (Folic Acid 1 Mg Tab) 1 mg PO DAILY [facility] Last Admin: 02/23/22 09:02 Dose: 1 mg Lactated Ringer's (Lactated Ringers) 1,000 mls @ 100 mls/hr IV .Q10H [facility] Last Admin: 02/23/22 16:38 Dose: 100 mls/hr Lactulose (Lactulose 20 Gm/30 Ml Cup) 20 gm PO DAILY PRN PRN Reason: Constipation Levothyroxine Sodium (Levothyroxine 50 Mcg Tab) 50 mcg PO DAILY@0630 [facility] Last Admin: 02/23/22 06:17 Dose: 50 mcg Lorazepam (Lorazepam 2 Mg/Ml Inj) 0.5 mg IV Q6HR PRN PRN Reason: Anxiety Losartan Potassium (Losartan 50 Mg Tab) 50 mg PO DAILY [facility] Last Admin: 02/23/22 09:03 Dose: 50 mg Magnesium Hydroxide (Magnesium Hydroxide 2,400 Mg/10 Ml Cup) 2,400 mg PO HS PRN PRN Reason: Constipation Naloxone HCl (Naloxone 0.4 Mg/Ml 1 Ml Vial) 0.2 mg IV Q2M PRN PRN Reason: Opioid Reversal Nystatin (Nystatin 100,000unit/Gm Cream 30 Gm Tube) 1 applic TOPICAL BID [facility]; Protocol Last Admin: 02/23/22 09:05 Dose: 1 applic Ondansetron HCl (Ondansetron 4 Mg/2 Ml Vial) 4 mg IVP Q8HR PRN PRN Reason: Nausea And Vomiting Temazepam (Temazepam 15 Mg Cap) 15 mg PO HS PRN PRN Reason: Insomnia Last Admin: 02/22/22 21:03 Dose: 15 mg Ticagrelor (Ticagrelor 90 Mg Tab) 90 mg PO BID [facility] Last Admin: 02/23/22 09:03 Dose: 90 mg Past medical history to include: Hyperlipidemia, TIA, hypertension, RA, hypothyroid, hepatitis Social history: Lives at [facility]. Previous smoker. No alcohol. Patient's son Chago Morataya is the POA Physical examination: VITAL SIGNS: 98.5, 88, 18, 169/96, 96% room air GENERAL: Laying in bed, more comfortable EYES: Pupils equal. Conjunctiva normal. HEENT: External appearance of nose and ears normal, oral cavity-dry mucous membranes NECK: JVD not raised; masses not palpable. HEART: First and second heart sounds are normal; no edema. LUNGS: Respiratory rate increased, decreased breath sounds , ABDOMEN: Soft, nontender, liver spleen not palpable, no masses palpable. PSYCH: Able to answer some questions MUSCULOSKELETAL:No Clubbing/cyanosis;muscles-grossly intact. OA INVESTIGATIONS, reviewed in the clinical context: 02/23/2022: Potassium 3.5 creatinine 0.3 to Urine culture: Enterococcus faecalis 02/21/2022: Potassium 4.4 creatinine 0.3 to February 20: White count 8.7 hemoglobin 8.9 potassium 2.6 creatinine 0.33 White count 8 hemoglobin 11.1 platelets 370 potassium 3.6 creatinine 0.53 UA positive for protein 2+ ketones 2+ leukoesterase, WBC clumps, bacteria Influenza type A detected [influenza type B/RSV/COVID-19: Not detected] EKG tracing personally reviewed by me-normal sinus rhythm. Nonspecific T-wave changes. 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 Patient return to [facility] tomorrow. Better.
[2022-02-23] MEDS: CLOPIDOGREL 75 MG TAB PO SCH (21:28)
[2022-02-23] MEDS: ALPRAZolam 0.5 MG TAB PO PRN (21:29)
[2022-02-24] MEDS: LACTATED RINGERS 1,000 ML IV SCH ×2 (01:20→09:46)
[2022-02-24 01:30] VITALS: BP 134/52; PULSE 90
[2022-02-24] MEDS: LEVOTHYROXINE 50 MCG TAB PO SCH (05:34)
[2022-02-24] MEDS: ESCITALOPRAM 20 MG TAB PO SCH (09:44)
[2022-02-24] MEDS: ATORVASTATIN 10 MG TAB PO SCH (09:44)
[2022-02-24] MEDS: TICAGRELOR 90 MG TAB PO SCH (09:44)
[2022-02-24] MEDS: FOLIC ACID 1 MG TAB PO SCH (09:44)
[2022-02-24] MEDS: busPIRone HCl 5 MG TAB PO SCH (09:44)
[2022-02-24] MEDS: ASPIRIN 81 MG PO SCH (09:44)
[2022-02-24] MEDS: LOSARTAN 50 MG TAB PO SCH (09:44)
[2022-02-24] MEDS: AMOXICILLIN 250 MG/5 ML 80 ML BOTTLE PO SCH (09:45)
[2022-02-24] MEDS: ENOXAPARIN 40 MG/0.4 ML SYRINGE SQ SCH (09:45)
[2022-02-24] MEDS: NYSTATIN 100,000UNIT/GM CREAM 30 GM TUBE TOPICAL SCH (09:45)
[2022-02-24 13:55] VITALS: RESP 18; TEMP 98.8
--- NOTE | 2022-02-24 14:18 | P.DS ---
Providers Date of admission: 02/17/22 16:59 Expected date of discharge: 02/24/22 Attending physician: Basil Krishnamurthy Primary care physician: Gallito Darling [facility] Course: Chief Complaint: Congested cough This is a 81-year-old patient who follows with Dr. Darling from visiting physicians. History is obtained by the son Chago Morataya at the bedside. Chronic stable medical conditions include hyperlipidemia, hypertension, aortic, hypothyroid. Patient lives at the [facility]. Patient for last 10 days has been using a wheelchair. Had a fall prior to that. Before that she was using no walker. Has underlying dementia. For last 2 days patient become increasingly cough congested confused. Occasionally answering questions. Tested positive for influenza a, another resident at the [facility] had the same. Not eating anything. Refusing medications. Patient has still not able to give much of history. Will occasionally answer question. 02/19/2022: Decreased in congested cough. Eating small amounts. Less delirious. Bit more alert. Afebrile. Ensure added. Taking her medications. 02/20/2022: Remains a bit delirious. Has to be cajoled to eat a bit. Likes ice cream. Spoke to the nurse. At Ensure. Continue IV fluids. IV ceftriaxone. 02/21/2022: Remains delirious. Eating small amounts. Coughing intermittently. Getting IV ceftriaxone. IV fluids. 02/22/2022: Confused. Decreased oral intake. Decrease cough. Urine culture growing Enterococcus faecalis. Changed over to amoxicillin. Continue IV fluids. 02/23/2022: Eating a bit better. Less delirious. Patient is clinically confused. On oral amoxicillin. Cooperative. Patient to return to [facility] tomorrow. 02/24/2022: Eating some assistance. Residual cough. Does answer questions. We'll complete a course of amoxicillin. Return to [facility]. Past medical history to include: Hyperlipidemia, TIA, hypertension, RA, hypothyroid, hepatitis Social history: Lives at [facility]. Previous smoker. No alcohol. Patient's son Chago Morataya is the POA Physical examination: VITAL SIGNS: 98.8, 90, 18, 91% on room air GENERAL: Laying in bed, more comfortable, occasional cough EYES: Pupils equal. Conjunctiva normal. HEENT: External appearance of nose and ears normal, oral cavity-dry mucous membranes NECK: JVD not raised; masses not palpable. HEART: First and second heart sounds are normal; no edema. LUNGS: Respiratory rate increased, decreased breath sounds , ABDOMEN: Soft, nontender, liver spleen not palpable, no masses palpable. PSYCH: Able to answer some questions MUSCULOSKELETAL:No Clubbing/cyanosis;muscles-grossly intact. OA INVESTIGATIONS, reviewed in the clinical context: Procalcitonin 0.08 02/23/2022: Potassium 3.5 creatinine 0.3 to Urine culture: Enterococcus faecalis 02/21/2022: Potassium 4.4 creatinine 0.3 to February 20: White count 8.7 hemoglobin 8.9 potassium 2.6 creatinine 0.33 White count 8 hemoglobin 11.1 platelets 370 potassium 3.6 creatinine 0.53 UA positive for protein 2+ ketones 2+ leukoesterase, WBC clumps, bacteria Influenza type A detected [influenza type B/RSV/COVID-19: Not detected] EKG tracing personally reviewed by me-normal sinus rhythm. Nonspecific T-wave changes. 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 Fall precautions -DO NOT RESUSCITATE -POA: Son Yogi Morataya Disposition: [facility] - Discharge Summary Discharge Rx Participant: No New Discharge Prescriptions: New Amoxicillin 500 mg PO Q8H #21 capsule Continue Methotrexate Sodium/Pf [Methotrexate 100 mg/4 ml Vial] 25 unit SQ TU Levothyroxine Sodium [Synthroid] 50 mcg PO DAILY Folic Acid 1 mg PO DAILY Rosuvastatin Calcium [Crestor] 5 mg PO DAILY Kaolin Pectin 30 ml PO DIRECTED PRN PRN Reason: Diarrhea Desi-Lanta 15 ml PO BID PRN PRN Reason: Heartburn/Indigestion ALPRAZolam [Xanax] 0.5 mg PO TID PRN PRN Reason: Anxiety busPIRone HCL [Buspar] 7.5 mg PO BID Clopidogrel [Plavix] 75 mg PO HS guaiFENesin SYRUP 100MG/5ML [Robitussin] 200 mg PO Q6H PRN PRN Reason: Cough Nystatin 100,000Unit/gm Cream [Mycostatin Cream] 1 applic TOPICAL BID Ticagrelor [Brilinta] 90 mg PO BID tab Aspirin EC [Ecotrin Low Dose] 81 mg PO DAILY Losartan [Cozaar] 50 mg PO DAILY Magnesium Hydroxide [Milk of Magnesia] 2,400 mg PO HS PRN PRN Reason: Constipation Medihoney Paste 1 applic TOPICAL DAILY PRN PRN Reason: buttocks sores Escitalopram [Lexapro] 20 mg PO DAILY Discontinued Furosemide [Lasix] 40 mg PO DAILY Potassium Chloride ER [K-Dur 20] 20 meq PO DAILY Oseltamivir [Tamiflu] 75 mg PO Q12HR Discharge Medication List Levothyroxine Sodium [Synthroid] 50 mcg PO DAILY 01/22/15 [History] Methotrexate Sodium/Pf [Methotrexate 100 mg/4 ml Vial] 25 unit SQ TU 01/22/15 [History] Nystatin 100,000Unit/gm Cream [Mycostatin Cream] 1 applic TOPICAL BID 08/12/21 [History] Ticagrelor [Brilinta] 90 mg PO BID tab 08/18/21 [Rx] Aspirin EC [Ecotrin Low Dose] 81 mg PO DAILY 09/29/21 [History] Folic Acid 1 mg PO DAILY 09/29/21 [History] Losartan [Cozaar] 50 mg PO DAILY 09/29/21 [History] Rosuvastatin Calcium [Crestor] 5 mg PO DAILY 09/29/21 [History] ALPRAZolam [Xanax] 0.5 mg PO TID PRN 02/17/22 [History] Clopidogrel [Plavix] 75 mg PO HS 02/17/22 [History] Escitalopram [Lexapro] 20 mg PO DAILY 02/17/22 [History] Desi-Lanta 15 ml PO BID PRN 02/17/22 [History] Kaolin Pectin 30 ml PO DIRECTED PRN 02/17/22 [History] Magnesium Hydroxide [Milk of Magnesia] 2,400 mg PO HS PRN 02/17/22 [History] Medihoney Paste 1 applic TOPICAL DAILY PRN 02/17/22 [History] busPIRone HCL [Buspar] 7.5 mg PO BID 02/17/22 [History] guaiFENesin SYRUP 100MG/5ML [Robitussin] 200 mg PO Q6H PRN 02/17/22 [History] Amoxicillin 500 mg PO Q8H #21 capsule 02/24/22 [Rx] Follow up Appointment(s)/Referral(s): Gallito Darling MD [Primary Care Provider] - 1-2 days (PLEASE CALL AND SCHEDULE APPOINTMENT.) Patient Instructions/Handouts: Amoxicillin (By mouth), Urinary Tract Infection in Women (DC), Hypokalemia (DC), Influenza (DC), Pneumonia (DC) Activity/Diet/Wound Care/Special Instructions: Return to [facility].
== END 2022-02-24 14:10 | disposition home or self-care (01) | DRG 193 ==
LOC: EC 13:57 → 4SSUR 16:59
PROVIDERS: ADMIT Hospitalist; ATTEND Hospitalist
DX: J10.01 Influenza due to other identified influenza virus with the same other identified influenza virus pneumonia (principal); G93.41 Metabolic encephalopathy; N30.00 Acute cystitis without hematuria; F02.83 Dementia in other diseases classified elsewhere, unspecified severity, with mood disturbance; F02.84 Dementia in other diseases classified elsewhere, unspecified severity, with anxiety; G30.9 Alzheimer's disease, unspecified; M06.9 Rheumatoid arthritis, unspecified; Z66 Do not resuscitate; I10 Essential (primary) hypertension; B95.2 Enterococcus as the cause of diseases classified elsewhere; E86.0 Dehydration; E87.6 Hypokalemia; E03.9 Hypothyroidism, unspecified; E78.5 Hyperlipidemia, unspecified; I49.1 Atrial premature depolarization; K59.00 Constipation, unspecified; G47.00 Insomnia, unspecified; R32 Unspecified urinary incontinence; R26.9 Unspecified abnormalities of gait and mobility; Z79.82 Long term (current) use of aspirin; Z79.02 Long term (current) use of antithrombotics/antiplatelets; Z79.890 Hormone replacement therapy; Z79.899 Other long term (current) drug therapy; Z87.891 Personal history of nicotine dependence; Z71.6 Tobacco abuse counseling; Z86.73 Personal history of transient ischemic attack (TIA), and cerebral infarction without residual deficits; Z96.60 Presence of unspecified orthopedic joint implant
CPT/HCPCS: 36415; 70450; 71046; 80048; 80053; 81001; 82140; 83880; 84132; 84145; 84484; 85025; 85610; 85730; 87077; 87086; 87186; 87636; 93005; 94760; 96374; 96375; 99285